=== PATIENT | female | born 1940 | race Caucasian/White ===

== ENCOUNTER 2017-03-20 10:58 | Inpatient (IN) ==
[2017-03-20] MEDS ORDERED: AZITHROMYCIN IV 500 MG in NS 250ml 250 ML IV ONE (11:13)
--- NOTE | 2017-03-20 11:28 | Emergency Department Report ---
SOB HPI - General Chief Complaint: Shortness of Breath/Dyspnea Stated Complaint: Dyspnea Time Seen by Provider: 03/20/17 11:13 Source: patient, EMS Mode of arrival: EMS Limitations: no limitations - History of Present Illness 76yo woman presented to the ER by EMS for dyspnea. Pt has had several days of increased dyspnea. Has a known h/o COPD. No known sick contacts; no URI sx. Has had similar COPD exacerbations in the past. EMS gave 125mg IV solumedrol and x1 albuterol neb with improvement in sx. MD Complaint: shortness of breath Onset (ago): day(s) Severity: similar to previous episodes Consistency/Duration: constant Relieving factors: oxygen, rest, bronchodilators, upright position Exacerbating factors: lying flat, exertion, movement, coughing Known history of: COPD Associated symptoms: denies other symptoms Treatment prior to arrival: oxygen, bronchodilator - Related Data Home oxygen amount: 4 liters Home Medications Medication Instructions Recorded Confirmed Bumetanide 0.5 mg PO DAILY 03/20/17 03/20/17 Buspirone HCl [Buspirone HCl] 7.5 mg PO BID 03/20/17 03/20/17 Fluticasone/Salmeterol [Advair Hfa 2 puff INH BID 03/20/17 03/20/17 230-21 Mcg Inhaler] Potassium Chloride [Klor-Con 10] 10 meq PO DAILY 03/20/17 03/20/17 Previous Rx's Medication Instructions Recorded Tiotropium Lovilia [Spiriva] 1 cap ORAL INH DAILY #0 inhaler 06/23/15 ALPRAZolam [Xanax] 0.25 mg PO BID PRN #60 tab 06/29/15 Allergies Allergy/AdvReac Type Severity Reaction Status Date / Time Sulfa (Sulfonamide Allergy Unknown Verified 03/20/17 11:25 Antibiotics) Review of Systems All systems: reviewed and negative except as stated Respiratory: Reports: as per HPI, cough, dyspnea PFSH Patient Stated Medical History Chronic Obstructive Pulmonary Yes Disease (COPD) Medical History Updates: Anxiety. Depr. Hypokalemia Physical Exam - Limitations Limitations: no limitations - General General appearance: alert, in no apparent distress, cachectic - Normal Exams: Head:: Normocephalic without trauma Eyes:: Pupils are PERRLA w/ EOMI, No scleral icterus, irritation, or foreign bodies noted ENMT:: No facial trauma, nasal exudates, pharyngeal erythema, or exudates are noted Neck:: Full range of motion, without adenopathy Abdomen:: Bowel sounds positive, soft, non-tender, non-distended, no hepatosplenomegaly, masses or bruits noted Lymphatic:: No lymphadenopathy Musculoskeletal:: No tenderness, or deformity noted Integumentary:: No rashes, hives, or bruising noted Neurological:: Patient is alert, and oriented Psychiatric:: Patient exhibits, appropriate attention - Chest Chest inspection: Present: normal inspection, symmetric chest wall rise. Absent : tenderness, rash - Respiratory Respiratory exam: Present: accessory muscle use, prolonged expiratory phase, crackles. Absent: normal lung sounds bilaterally, respiratory distress, wheezes - Cardiovascular Cardiovascular exam: Present: normal rhythm, tachycardia, normal heart sounds. Absent: regular rate, systolic murmur, diastolic murmur Course Vital Signs Temperature 98.2 F 03/20/17 11:19 Pulse Rate 100 03/20/17 11:19 Respiratory Rate 22 03/20/17 11:19 Blood Pressure 158/78 H 03/20/17 11:19 Pulse Oximetry 92 03/20/17 11:19 Temperature 96.4 F L 03/22/17 07:53 Pulse Rate 94 03/22/17 08:00 Respiratory Rate 18 03/22/17 11:28 Blood Pressure 121/67 03/22/17 07:53 Pulse Oximetry 92 03/22/17 11:22 Shortness of Breath/Dyspnea - [facility] Narrative Medical decision making narrative: Pt with h/o COPD; sx c/w same, except for crackles in lungs. Marked improvement following duonebs. Pt still feels dyspneic. Labs show that she is hypercarbic; CXR shows pulm congestion. Will give IV loop diuretic; if sx not improved, will discuss admission. O/w will plan for d/c to home with f/u with PCM and pulm. Pt voiced understanding of dx, prognosis, tx, and f/u need. - Differential Diagnosis Likely: acute exacerbation of chronic obstructive airways disease, congestive heart failure, community acquired pneumonia, asthma with exacerbation - Medical Records Attestation: I reviewed the patient's medical records. - Lab Data Attestation: I reviewed the patient's lab results. Result diagrams: 03/22/17 04:48 03/22/17 04:48 Lab Results 03/20/17 03/20/17 03/20/17 Range/Units 11:18 11:24 11:24 WBC 8.4 (4.5-11.0) T/MM3 RBC 5.08 (4.00-5.20) M/MM3 Hgb 13.8 (12-16) GM/DL Hct 45.9 (36-46) % MCV 90.4 (80-100) UM3 MCH 27.2 (26-34) UUG MCHC 30.1 L (31-37) GM/DL RDW Std Deviation 45.2 (36.9-50.2) FL Plt Count 223 (130-400) T/MM3 MPV 11.8 (9.4-12.4) UM3 Immature Gran % (Auto) Not performed Neut % (Auto) Not performed Lymph % (Auto) Not performed [place] % (Auto) Not performed Eos % (Auto) Not performed Baso % (Auto) Not performed Neut # (Auto) Not performed Lymph # (Auto) Not performed [place] # (Auto) Not performed Eos # (Auto) Not performed Baso # (Auto) Not performed Abs Immat Gran (auto) Not performed Neutrophils % (Manual) 87.0 H (33-66) % Lymphocytes % (Manual) 8.0 L (23-45) % Monocytes % (Manual) 5.0 (0-9.0) % Neutrophils # (Manual) 7.3 (1.8-7.7) T/MM3 Lymphocytes # (Manual) 0.7 L (1-4.8) T/MM3 Monocytes # (Manual) 0.4 (0-0.8) T/MM3 RBC Morph Comment Normal Turbidity < 20 (0-20) Sodium 134 (134-144) MEQ/L Potassium 4.3 (3.6-5) MEQ/L Chloride 81 L (98-107) MEQ/L Carbon Dioxide 46 H* (22-30) MEQ/L Anion Gap 7 (5-15) MEQ/L BUN 15.0 (7-17) MG/DL Creatinine 0.5 L (0.7-1.2) MG/DL GFR Calculation 120 BUN/Creatinine Ratio 30 H (6-26) RATIO Glucose 98 (65-110) MG/DL Calculated Osmolality 259 L (261-280) MOSM/KG Calcium 9.2 (8.4-10.2) MG/DL Icterus Index < 2 (0-7) Troponin I < 0.012 (0-0.12) ng/ml B-Natriuretic Peptide 835 H (0-175) pg/mL Specimen Hemolysis < 15 (0-25) Adenovirus (PCR) Negative (Negative) B.parapertussis DNA PCR Negative (Negative) C. pneumoniae DNA (PCR) Negative (Negative) Coronavirus OC43 (PCR) Negative (Negative) Coronavirus HKU1 (PCR) Negative (Negative) Coronavirus 229E (PCR) Negative (Negative) Coronavirus NL63 (PCR) Negative (Negative) Human Metapneumovir PCR Negative (Negative) Influenza Type A (PCR) Negative (Negative) Influenza Type B (PCR) Negative (Negative) M. pneumoniae (PCR) Negative (Negative) Parainfluenza 1 (PCR) Negative (Negative) Parainfluenza 2 (PCR) Negative (Negative) Parainfluenza 3 (PCR) Negative (Negative) Parainfluenza 4 (PCR) Negative (Negative) RSV (PCR) Negative (Negative) Entero/Rhino (PCR) Negative (Negative) - Radiology Data Attestation: I reviewed the patient's radiology results. CXR: Findings: Hyperinflation and emphysema. Increased interstitial markings in the mid to lower lung campbell with slight worsening in the left lower lobe. No pneumothorax. Trace pleural effusions. Heart size and mediastinal contours are stable. Pulmonary vascularity is prominent with cephalization. Impression: Mild pulmonary edema superimposed upon emphysema. - EKG Data EKG #1 EKG attestation: Yes: I reviewed and interpreted this EKG. EKG shows normal: sinus rhythm, axis, intervals, QRS complexes, ST-T waves Rate: tachycardia Disposition Clinical Impression: Acute exacerbation of chronic obstructive airways disease Disposition: [facility] [place] Condition: Stable - Seen By: physician
--- NOTE | 2017-03-20 12:25 | XRay Report ---
Indication: Dyspnea PROCEDURE: XR chest 1V: Encounter: Initial Comparison: June 28, 2015 Findings: Hyperinflation and emphysema. Increased interstitial markings in the mid to lower lung campbell with slight worsening in the left lower lobe. No pneumothorax. Trace pleural effusions. Heart size and mediastinal contours are stable. Pulmonary vascularity is prominent with cephalization. Impression: Mild pulmonary edema superimposed upon emphysema. .
[2017-03-20] MEDS ORDERED: FUROSEMIDE 20 MG/2 ML INJECTION IVP ONE (12:35)
[2017-03-20] MEDS: SALINE FLUSH 10ml SYRINGE IVF PRN ×2 (12:46→15:19)
[2017-03-20] MEDS ORDERED: ACETAMINOPHEN 325 MG TABLET PO PRN (14:11)
[2017-03-20 14:15] VITALS: BMI 24.2
[2017-03-20] MEDS ORDERED: ONDANSETRON 4 MG/2 ML INJECTION IVP PRN (14:15)
[2017-03-20] MEDS: ALBUTEROL/IPRATROPIUM 2.5mg-0.5mg/3ml NEB AEROSOL PRN ×2 (15:00→20:46)
--- NOTE | 2017-03-20 15:04 | History & Physical Report ---
<LorigarlandNatasha Adonis - Last Filed: 03/20/17 15:54> History of Present Illness Date: 03/20/17 Chief complaint: COPD exacerbation, respiratory distress HPI: Judie Weber is a pleasant 76-year-old female who [place] [facility] today, 03/20/17, for evaluation of severe dyspnea and cough. She admits to a history of chronic respiratory failure requiring constant home oxygen at 4L/min secondary to COPD. She reports that a few months ago she had to increase her home oxygen from 3L to 4L. She follows with Dr. Galindo. For the past several days she has had increased dyspnea with cough and congestion. She admits to productive cough with white-yellow sputum, generalized weakness and occasional chills. She denies any known fevers, chest pain, abdominal pain, nausea, vomiting, dysuria, confusion or headache. She states she uses inhalers at home and tried a nebulized albuterol treatment this morning without improvement. Despite her home treatments and chronic oxygen use at 4L, she was unable to maintain her SAO2 greater than 90%, specifically with ambulation. EMS was dispatched and gave an additional albuterol treatment with Solu-Medrol 125mg IV prior to arrival. Upon arrival to the ED, she reports she felt a little better, but continued to have dyspnea. CXR was obtained and reviewed by myself. It revealed mild pulmonary edema superimposed upon emphysema. Labs were obtained and revealed WBC 8.4 with 87% neutrophils. CMP revealed elevated bicarb at 46 and otherwise unremarkable. Troponin was negative at <0.012 and BMP was 835. Respiratory viral panel was negative. While in the ED, Judie received 3 Xopenex treatments, Lasix 20mg IV and a dose of azithromycin 500mg IV for empiric coverage of pulmonary pathogens. Dr. Rdz was contacted and Judie was accepted into inpatient status for further evaluation, close respiratory monitoring as well as respiratory treatments and IV antibiotics for her acute on chronic respiratory failure and COPD exacerbation. Her length of stay is expected to exceed more than 2 over nights. On exam, she is seen immediately upon her arrival to room 148. She is noted to have moderate respiratory distress with increased effort and 1-2 word conversational dyspnea. Respiratory is at bedside on during exam. She denies any recent illness or sick contacts. She has not received her flu shot yet this year. Respiratory panel in ED was negative. Cardiac exam reveals tachycardia. Lungs sounds are diminished bilaterally. No retractions noted. Abdomen is soft, nontender with active bowel sounds and she asks for something to eat as she has not eaten all day and is hungry. 2+ pitting edema noted to right lower extremity vs. 1+ to left lower extremity. She reports that her right leg is always more swollen than her left. She is alert and orientated x 3. Review of Systems All systems PM: 10-point ROS was reviewed, no additional remarkable complaints except - Constitutional Constitutional: Present: chills, fatigue, weakness. Absent: fever(s) - EENMT Eyes: Absent: diplopia, photophobia Ears: Absent: ear pain Balance: Absent: falling to one side Nose: Present: allergies, other (congestion). Absent: nosebleeds Mouth/Throat: Present: dry mouth. Absent: sore throat, changes in swallowing - Cardiovascular Cardiovascular: Present: dyspnea on exertion, orthopnea, edema. Absent: chest pain, syncope, cyanosis Vascular: Present: pedal edema - Respiratory Respiratory: Present: cough, dyspnea, dyspnea on exertion. Absent: hemoptysis, wheezing, pain on inspiration, chest congestion - Gastrointestinal Gastrointestinal: Absent: abdominal pain, change in bowel habits, constipation, diarrhea, dysphagia, hematochezia, melena, nausea, vomiting - Genitourinary Genitourinary: Absent: dysuria, flank pain, hematuria Menstruation: post menopausal - Musculoskeletal Musculoskeletal: Present: muscle weakness. Absent: back pain, deformity, neck pain - Integumentary/Breasts Integumentary: Absent: rash - Neurological Neurological: Present: weakness. Absent: confusion, convulsions, headache(s), memory loss - Psychiatric Psychiatric: Present: anxiety - Endocrine Endocrine: Absent: palpitations - Hematologic/Lymphatic Hematologic/Lymphatic: Absent: easy bruising - Allergic/Immunologic Allergic/Immunologic: Present: seasonal rhinorrhea PFSH COPD. Chronic respiratory failure requiring chronic supplemental oxygen at 4L-follows with Dr. Galindo. Anxiety. Uterine prolapse. History of tobacco dependency - quit in 2004. CHF, diastolic dysfunction. Surgical History: Right hip-2006. Vaginal plessary. Family History: Mother, age 78 - osteoarthritis, from sepsis. Father, age 76 - diabetes, CAD, hypertension. Son, alive age 54 - diabetes. Daughter, alive age 50 - healthy. - Social History Smoking status: Former smoker (quit in 2004.) Substance use type: does not use Alcohol intake frequency: does not drink Housing: house Household members: none Current occupational status: retired Does patient use chewing tobacco?: No Current residence: Apartment/Private Home Social history: PCP - Dr. Person. Cardio - Dr. Price. Pulm - Dr. Galindo. Patient is and lives at home, alone, with 2 dogs (Yvette and Iman). Medications Home Medications Medication Instructions Recorded Confirmed Type Bumetanide 0.5 mg PO DAILY 03/20/17 03/20/17 History Buspirone HCl [Buspirone HCl] 7.5 mg PO BID 03/20/17 03/20/17 History Fluticasone/Salmeterol [Advair Hfa 2 puff INH BID 03/20/17 03/20/17 History 230-21 Mcg Inhaler] Potassium Chloride [Klor-Con 10] 10 meq PO DAILY 03/20/17 03/20/17 History Allergies Allergy/AdvReac Type Severity Reaction Status Date / Time Sulfa (Sulfonamide Allergy Unknown Verified 03/20/17 11:25 Antibiotics) Exam Vital Signs: Temperature 96.9 F 03/20/17 14:15 Pulse Rate 111 H 03/20/17 14:15 Respiratory Rate 29 H 03/20/17 14:15 Blood Pressure 143/73 H 03/20/17 14:15 Pulse Oximetry 90 03/20/17 14:15 Telemetry Rhythm: Sinus Tachycardia Height/Weight/BMI: Height 4 ft 11 in Weight 119 lb 14.903 oz Body Mass Index 24.2 - Constitutional Present: moderate distress, well nourished, well developed, cooperative - Routine HEENT Exam Head: Present: normocephalic, atraumatic Eye: Present: PERRL. Absent: conjunctival icterus ENT: Present: mucous membranes dry, dentition normal - Routine Neck Exam Present: supple, full ROM, trachea midline - Routine Chest/Breast/Axilla Exam Chest wall: Absent: pacemaker - Routine Respiratory Exam Present: accessory muscle use, dyspnea, decreased breath sounds, prolonged expiratory phase, respiratory distress, diminished air movement. Absent: wheezes Comments: pursed lips with breathing; 1-2 word conversational dyspnea. - Routine Cardiovascular Exam Present: S1, S2, tachycardia - Routine Abdominal Exam Present: soft, normoactive bowel sounds, non distended, non tender - Routine Extremities Exam Present: edema (2+ pitting to right, 1+ pitting to left.), non tender, full ROM , pulses intact. Absent: calf tenderness - Routine Back/Spine/Pelvis Exam Back/Spine: Present: full ROM - Routine Skin Exam Present: intact, dry, warm. Absent: jaundice Comments: afebrile. - Routine Neurological Exam Present: alert, oriented X3, moving all extremities, normal speech - Routine Psychiatric Exam Present: cooperative Results - Labs CBC & Chem 7: 03/20/17 11:24 03/20/17 11:24 - ABG Interpretation ABG results: 03/20/17 14:30 ABG pH 7.273 L ABG pCO2 101 H* ABG pO2 65 L ABG HCO3 47 H ABG Total CO2 50 H ABG O2 Saturation 87.0 L ABG Base Excess 14.0 H Interpretation: respiratory acidosis - Echocardiogram Echocardiogram: 06/26/2012: * Preserved LV systolic function with EF 52-55%. * Mild diastolic dysfunction. * Mild-moderate RV enlargement. * Moderate RV hypokinesis. * Moderate pulmonary hypertension. * Normal central venous pressure. * No significant valvular dysfunction. * Minimal posterior pericardial effusion. - Imaging and Cardiology Chest x-ray Status: image reviewed by me Additional comments: Date of Exam: 03/20/17 PROCEDURE: XR chest 1V: Encounter: Initial Findings: Hyperinflation and emphysema. Increased interstitial markings in the mid to lower lung campbell with slight worsening in the left lower lobe. No pneumothorax. Trace pleural effusions. Heart size and mediastinal contours are stable. Pulmonary vascularity is prominent with cephalization. Impression: Mild pulmonary edema superimposed upon emphysema. Assessment and Plan (1) Acute and chronic respiratory failure with hypercapnia Current visit: Yes Status: Acute (2) Acute exacerbation of chronic obstructive airways disease Current visit: Yes Status: Acute (3) Diastolic CHF, chronic Current visit: Yes Status: Chronic 06/26/2012: * Preserved LV systolic function with EF 52-55%. * Mild diastolic dysfunction. * Mild-moderate RV enlargement. * Moderate RV hypokinesis. * Moderate pulmonary hypertension. * Normal central venous pressure. * No significant valvular dysfunction. * Minimal posterior pericardial effusion. (4) History of tobacco use in past year Current visit: Yes Status: Chronic 03/20/17 15:37 quit in 2004. (5) Anxiety Current visit: Yes Status: Chronic (6) Uterine prolapse Current visit: Yes Status: Chronic (7) Chronic respiratory failure with hypoxia, on home oxygen therapy Current visit: Yes Status: Acute 03/20/17 15:[address] Galindo; chronic home oxygen at baseline of 3-4L. DVT Prophylaxis: SCD's Assessment and Plan: 76-year-old female with acute on chronic respiratory failure with hypercapnia and hypoxia secondary to COPD exacerbation with home oxygen use at 4L. Assessment Acute on chronic respiratory failure with hypercapnia and hypoxia. COPD exacerbation, acute. Chronic respiratory failure requiring chronic supplemental oxygen at 4L-follows with Dr. Galindo. Anxiety, chronic. History of tobacco dependency - quit in 2004. CHF, diastolic dysfunction, chronic. Plan-03/20 (Admission) Admit to inpatient status under the care of the hospitalist service, Dr. Rdz. ABG obtained immediately upon arrival to inpatient unit-revealed acute on chronic respiratory failure as indicated by elevated pCO2 at 101 and acidosis ( pH 7.273). Respiratory therapy consulted and initiated bipap, which patient is tolerating well. History of chronic oxygen use at home at 3-4L. Follows with Dr. Galindo in [place]. Monitor closely on telemetry with continuous pulse oximetry. CXR in ED revealed mild pulmonary edema superimposed upon emphysema. Echo in 2015 revealed diastolic dysfunction with EF 52-55%. Patient has seen Dr. Price previously. Patient was given Lasix 20mg IV x 1 dose in ED. Continue home Bumex 0.5mg daily and monitor I&O closely. Monitor daily weights closely for signs of fluid overload. Sputum culture obtained in ED. Azithromycin 500mg IV given in ED. Will continue azithromycin 500mg IV daily for empiric treatment of pulmonary pathogens. Monitor sputum culture and sensitivity and adjust treatment as indicated. Respiratory support including supplemental oxygen, DuoNeb and Pulmicort treatments and bipap as needed for dyspnea. Ativan 0.5mg Q6H PRN anxiety. Mucinex for mucolytic effect and encourage incentive spirometry. Solu-Medrol 125mg Q6H for pulmonary inflammation. Anticipate hyperglycemia secondary to steroid effect. Will monitor BGMs closely and SSI as indicated. Low salt diet as tolerated. History of seasonal allergies. Will initiate Claritin which patient reports she has used successfully in the past in addition to Flonase for allergic rhinitis and congestion. Will recheck CBC and BMP in AM to monitor blood counts, electrolyses and renal function. Upon discharge, patient's care will be returned to her PCP, Dr. Person. - Time spent with patient Time with patient PN: 70 minutes Hospital Course Summary Disclaimer: The visit summary below is not to be considered part of the above Progress Note. Hospital Course: Assessment Acute on chronic respiratory failure with hypercapnia and hypoxia. COPD exacerbation, acute. Chronic respiratory failure requiring chronic supplemental oxygen at 4L-follows with Dr. Galindo. Anxiety, chronic. History of tobacco dependency - quit in 2004. CHF, diastolic dysfunction, chronic. Plan-03/20 (Admission) Admit to inpatient status under the care of the hospitalist service, Dr. Rdz. ABG obtained immediately upon arrival to inpatient unit-revealed acute on chronic respiratory failure as indicated by elevated pCO2 at 101 and acidosis ( pH 7.273). Respiratory therapy consulted and initiated bipap, which patient is tolerating well. History of chronic oxygen use at home at 3-4L. Follows with Dr. Galindo in [place]. Monitor closely on telemetry with continuous pulse oximetry. CXR in ED revealed mild pulmonary edema superimposed upon emphysema. Echo in 2015 revealed diastolic dysfunction with EF 52-55%. Patient has seen Dr. Price previously. Patient was given Lasix 20mg IV x 1 dose in ED. Continue home Bumex 0.5mg daily and monitor I&O closely. Monitor daily weights closely for signs of fluid overload. Sputum culture obtained in ED. Azithromycin 500mg IV given in ED. Will continue azithromycin 500mg IV daily for empiric treatment of pulmonary pathogens. Monitor sputum culture and sensitivity and adjust treatment as indicated. Respiratory support including supplemental oxygen, DuoNeb and Pulmicort treatments and bipap as needed for dyspnea. Ativan 0.5mg Q6H PRN anxiety. Mucinex for mucolytic effect and encourage incentive spirometry. Solu-Medrol 125mg Q6H for pulmonary inflammation. Anticipate hyperglycemia secondary to steroid effect. Will monitor BGMs closely and SSI as indicated. Low salt diet as tolerated. History of seasonal allergies. Will initiate Claritin which patient reports she has used successfully in the past in addition to Flonase for allergic rhinitis and congestion. Will recheck CBC and BMP in AM to monitor blood counts, electrolyses and renal function. Upon discharge, patient's care will be returned to her PCP, Dr. Person. 03/20/17 15:58 <Maame Rdz - Last Filed: 03/20/17 17:53> History of Present Illness Date: 03/20/17 [facility] Exam Vital Signs: Temperature 96.2 F L 03/20/17 16:32 Pulse Rate 105 H 03/20/17 16:32 Respiratory Rate 18 03/20/17 16:32 Blood Pressure 122/57 03/20/17 16:32 Pulse Oximetry 95 03/20/17 16:32 Height/Weight/BMI: Height 1.5 m Weight 54.4 kg Body Mass Index 24.2 Results - Labs CBC & Chem 7: 03/20/17 11:24 03/20/17 11:24 - ABG Interpretation ABG results: 03/20/17 14:30 ABG pH 7.273 L ABG pCO2 101 H* ABG pO2 65 L ABG HCO3 47 H ABG Total CO2 50 H ABG O2 Saturation 87.0 L ABG Base Excess 14.0 H Assessment and Plan (1) Acute and chronic respiratory failure with hypercapnia Current visit: Yes Status: Acute (2) Acute exacerbation of chronic obstructive airways disease Current visit: Yes Status: Acute (3) Chronic respiratory failure with hypoxia, on home oxygen therapy Current visit: Yes Status: Chronic (4) Diastolic CHF, chronic Current visit: Yes Status: Chronic Resuscitation Status: Full Code Assessment and Plan: I have independently evaluated and examined this patient. I reviewed the chart, the patient's history, and the [employer]ANG[employer]AGES PROFESSOR/PA's documented findings as above. We discussed and formulated the assessment and plan as above with additions as below: Mrs. Weber was on BiPAP when seen but was able to nod yes/no to questions. She appeared fatigued but indicated she was more comfortable with BiPAP than she was earlier in the day. She describes subacute onset of symptoms with progressive worsening of breathing. Review of outpatient records indicates that in November of this year her FEV1 was 0.29 L or 20% predicted and FVC 1.15-54%. It appears that she should be on Spiriva and Brovana in addition to albuterol and that Advair was discontinued due to inconsistent use due to cost. Will attempt to clarify with patient during time period that she is off BiPAP and able to provide history more effectively. On examination patient was resting comfortably at the time of my assessment. Conjugate gaze, sclera anicteric Respirations nonlabored on BiPAP with FiO2 50%, breath sounds diminished throughout without wheezing or rhonchi Cardiac rhythm regular with low-grade tachycardia +2 lower extremity edema Chest x-ray reviewed by myself with hyperinflated lung campbell, mild increased vascular markings and probable bilateral pleural effusions Additional dose of Bumex 1 mg to be given at this time. ABG to be repeated to be repeated on BiPAP to assess effectiveness. Bicarbonate in the outpatient setting has increased from 34 in March 2016 to 39 in November of this year to 46 currently indicating progressive hypercarbia. PCO2 currently is 101 with decreased pH compatible with acute/chronic CO2 retention. Patient will be evaluated for home ventilatory assistance if she is open to doing so. Anticipate continuing BiPAP continuously except brief periods off for meals at this time. Patient indicated full CODE STATUS and that her children are her alternate decision makers. Her primary care physician is Dr. Colunga. Outpatient records reviewed, discussed with Dr. Angulo and RT, chest x-ray reviewed by myself. Critically ill on presentation-40 minutes spent in patient care by myself. Hospital Course Summary Disclaimer: The visit summary below is not to be considered part of the above Progress Note.
[2017-03-20] MEDS: AZITHROMYCIN IV 500 MG in NS 250ml 250 ML IV SCH (15:06)
[2017-03-20] MEDS ORDERED: FALL RISK - PHARMACY CONSULT XX ONE (15:28)
[2017-03-20] MEDS: FLUTICASONE NASAL SPRAY 50mcg EA NOSTRIL SCH (16:40)
[2017-03-20] MEDS: METHYLPREDNISOLONE SOD SUCC 125mg/2ml INJECTION IVP SCH (16:41)
[2017-03-20] MEDS ORDERED: INFLUENZA VAC High Dose 2017-18 (Fluzone HD*) (>=65yo) 0.5ml IM ONE (18:11)
[2017-03-20] MEDS ORDERED: INFLUENZA VAC. INJ. ADMIN CHARGE INJ ONE (19:00)
[2017-03-20] MEDS: PNEUMOCOCCAL 13 VACCINE 0.5ml INJECTION IM ONE (19:29)
[2017-03-20] MEDS: GUAIFENESIN LA 600 MG TABLET PO SCH (20:07)
[2017-03-20] MEDS: BUDESONIDE INH.SOLN 0.5mg/2ml NEB AEROSOL SCH (20:45)
[2017-03-20] MEDS ORDERED: ALBUTEROL 2.5mg/3ml (0.083%) NEB AEROSOL PRN (20:52)
[2017-03-20] MEDS ORDERED: ALPRAZolam 0.25 MG TABLET PO PRN (20:54)
[2017-03-21] MEDS: METHYLPREDNISOLONE SOD SUCC 125mg/2ml INJECTION IVP SCH ×3 (02:24→18:44)
[2017-03-21] MEDS: LORATADINE 10 MG TABLET PO SCH (06:44)
[2017-03-21] MEDS: ALBUTEROL/IPRATROPIUM 2.5mg-0.5mg/3ml NEB AEROSOL PRN (07:23)
[2017-03-21] MEDS: BUDESONIDE INH.SOLN 0.5mg/2ml NEB AEROSOL SCH ×2 (07:23→19:47)
[2017-03-21] MEDS: GUAIFENESIN LA 600 MG TABLET PO SCH ×2 (08:50→20:14)
[2017-03-21] MEDS: FLUTICASONE NASAL SPRAY 50mcg EA NOSTRIL SCH (08:51)
[2017-03-21] MEDS: PNEUMOCOCCAL 13 VACCINE 0.5ml INJECTION IM ONE (10:35)
[2017-03-21] MEDS: NS FLUSH BAG 500ml IV PRN (10:35)
[2017-03-21] MEDS: CEFTRIAXONE 1 G in NS 100 ML IV SCH (10:35)
--- NOTE | 2017-03-21 10:49 | Pulmonology Consult Note ---
<Yessy Zepeda - Last Filed: 03/21/17 10:40> History of Present Illness Consult date: 03/21/17 Requesting physician: Maame Rdz Reason for consult: COPD Chief complaint: SOB History of present illness: This is a 76 yo female with a Hx of COPD, anxiety, and depression. She sees Dr. Galindo for her COPD, states she was in Advair daily and spiriva daily and she was switched a month ago from her advair to brovana BID neb. She states since then she has noticed some increase in her SOB. Is usualy on 3L O2 at home. She unfortuantely has noticed increased SOB, cough and some sputum the last couple days. Her SOB increased enough yesterday that she called EMS and was brought [place] [facility] [place] EMS did give a BT and soolumedrol 125mg with some relief noted. Lab on admit showed normal WBC and Cr, RVP negative, CXR with some congestion, otherwise COPD noted. ABG noted 7.28/101/74 and was started on bipap, repeat ABG was 7.4/81/83. We have been consulted for her respiratory issues and appreciate the consult. Review of Systems - Constitutional Constitutional: Present: as per HPI - EENT Eyes: Present: as per HPI Nose: Present: as per HPI - Respiratory Respiratory: Present: cough, dyspnea, dyspnea on exertion - Gastrointestinal Gastrointestinal: Present: as per HPI - Musculoskeletal Musculoskeletal: Present: as per HPI - Integumentary/Breasts Integumentary: Present: as per HPI - Neurological Neurological: Present: as per HPI - Psychiatric Psychiatric: Present: as per HPI - Endocrine Endocrine: Present: as per HPI - Hematologic/Lymphatic Hematologic/Lymphatic: Present: as per HPI - Allergic/Immunologic Allergic/Immunologic: Present: as per HPI [facility] Patient Stated Medical History Chronic Obstructive Pulmonary Yes Disease (COPD) Medical History Updates: Anxiety. Depr. Hypokalemia Surgical History: Right hip-2006. Vaginal plessary. - Social History Smoking status: Former smoker (quit in 2004.) Substance use type: does not use Alcohol intake frequency: does not drink Housing: house Does patient use chewing tobacco?: No Current residence: Apartment/Private Home Medications Home Medications Medication Instructions Recorded Confirmed Type Bumetanide 0.5 mg PO DAILY 03/20/17 03/20/17 History Buspirone HCl [Buspirone HCl] 7.5 mg PO BID 03/20/17 03/20/17 History Fluticasone/Salmeterol [Advair Hfa 2 puff INH BID 03/20/17 03/20/17 History 230-21 Mcg Inhaler] Potassium Chloride [Klor-Con 10] 10 meq PO DAILY 03/20/17 03/20/17 History Allergies Allergy/AdvReac Type Severity Reaction Status Date / Time Sulfa (Sulfonamide Allergy Unknown Verified 03/20/17 11:25 Antibiotics) Exam Vital signs: Temperature 97.0 F 03/21/17 07:44 Pulse Rate 86 03/21/17 08:17 Respiratory Rate 14 03/21/17 07:44 Blood Pressure 154/89 H 03/21/17 07:44 Pulse Oximetry 96 03/21/17 07:49 - Constitutional no acute distress, cachectic - Routine HEENT Exam Head: Present: normocephalic, atraumatic Eye: Present: EOMI, PERRL - Routine Neck Exam Present: supple, full ROM - Routine Respiratory Exam Present: decreased breath sounds - Routine Cardiovascular Exam Present: RRR, no murmur - Routine Abdominal Exam Present: soft, normoactive bowel sounds - Routine Extremities Exam Present: no edema - Routine Back/Spine/Pelvis Exam Back/Spine: Present: full ROM - Routine Skin Exam Present: intact, dry - Routine Neurological Exam Present: alert, oriented X3, CN II-XII intact - Routine Psychiatric Exam Present: normal affect, normal thought process Results - Laboratory Findings CBC and BMP: 03/21/17 04:30 03/21/17 04:30 ABG ABG pH 7.402 (7.350-7.450) 03/21/17 07:48 ABG pCO2 81 MMHG (34-45) H* 03/21/17 07:48 ABG pO2 83 MMHG (80-100) 03/21/17 07:48 ABG O2 Saturation 95.0 % (95.0-98.0) 03/21/17 07:48 Abnormal lab findings: Abnormal Labs 03/20/17 03/20/17 03/21/17 14:30 17:40 04:30 MCHC 29.4 L Neutrophils % (Manual) 91.0 H Lymphocytes % (Manual) 6.0 L Lymphocytes # (Manual) 0.3 L ABG pH 7.273 L 7.283 L ABG pCO2 101 H* 101 H* ABG pO2 65 L 74 L ABG HCO3 47 H 48 H ABG Total CO2 50 H > 50 H ABG O2 Saturation 87.0 L 91.0 L ABG Base Excess 14.0 H 15.0 H Chloride Carbon Dioxide Creatinine BUN/Creatinine Ratio 03/21/17 03/21/17 04:30 07:48 MCHC Neutrophils % (Manual) Lymphocytes % (Manual) Lymphocytes # (Manual) ABG pH ABG pCO2 81 H* ABG pO2 ABG HCO3 50 H ABG Total CO2 > 50 H ABG O2 Saturation ABG Base Excess 21.0 H Chloride 82 L Carbon Dioxide 46 H* Creatinine 0.5 L BUN/Creatinine Ratio 34 H - Diagnostic Findings Chest x-ray: image reviewed (as noted in HPI) Assessment and Plan - Assessment and Plan (1) Acute and chronic respiratory failure with hypercapnia Current visit: Yes Status: Acute (2) Acute exacerbation of chronic obstructive airways disease Current visit: Yes Status: Acute (3) Anxiety Current visit: Yes Status: Chronic (4) Diastolic CHF, chronic Current visit: Yes Status: Chronic - Assessment and Plan Pt is currently on O2 at 4L per NC, uses 3L O2 at home. Tolerated bipap last noc , f14, 21/10, Vt 400-500, continue to follow. Currently on spiriva daily, budesonide BID, Solumedrol 125mg q8hr, will add a/a QID as currently just PRN. Afebrile and no leukocytosis noted, sputum pending, on azithro/rocephin. CXR showed congestion, follow, not on diuretics at this time. Has Chronic hnypercapnic failure and will need a home vent to mask for her underlying COPD and Chronic Respiratory Failure. She is at high risk for decompensation and even without the use of a home vent to mask. Will continue to follow. <Jose Walton - Last Filed: 03/22/17 14:14> [facility] Patient Stated Medical History Chronic Obstructive Pulmonary Yes Disease (COPD) Exam Vital signs: Temperature 96.4 F L 03/22/17 07:53 Pulse Rate 94 03/22/17 08:00 Respiratory Rate 18 03/22/17 11:28 Blood Pressure 121/67 10/12/17 07:53 Pulse Oximetry 92 03/22/17 11:22 Results - Laboratory Findings CBC and BMP: 03/22/17 04:48 03/22/17 04:48 ABG ABG pH 7.402 (7.350-7.450) 03/21/17 07:48 ABG pCO2 81 MMHG (34-45) H* 03/21/17 07:48 ABG pO2 83 MMHG (80-100) 03/21/17 07:48 ABG O2 Saturation 95.0 % (95.0-98.0) 03/21/17 07:48 Abnormal lab findings: Abnormal Labs 03/20/17 03/20/17 03/21/17 14:30 17:40 04:30 Hgb MCHC 29.4 L Neutrophils % (Manual) 91.0 H Lymphocytes % (Manual) 6.0 L Neutrophils # (Manual) Lymphocytes # (Manual) 0.3 L ABG pH 7.273 L 7.283 L ABG pCO2 101 H* 101 H* ABG pO2 65 L 74 L ABG HCO3 47 H 48 H ABG Total CO2 50 H > 50 H ABG O2 Saturation 87.0 L 91.0 L ABG Base Excess 14.0 H 15.0 H Chloride Carbon Dioxide Anion Gap BUN Creatinine BUN/Creatinine Ratio Glucose 03/21/17 03/21/17 03/22/17 04:30 07:48 04:48 Hgb 11.9 L MCHC 29.5 L Neutrophils % (Manual) 95.0 H Lymphocytes % (Manual) 3.0 L Neutrophils # (Manual) 10.2 H Lymphocytes # (Manual) 0.3 L ABG pH ABG pCO2 81 H* ABG pO2 ABG HCO3 50 H ABG Total CO2 > 50 H ABG O2 Saturation ABG Base Excess 21.0 H Chloride 82 L Carbon Dioxide 46 H* Anion Gap BUN Creatinine 0.5 L BUN/Creatinine Ratio 34 H Glucose 03/22/17 04:48 Hgb MCHC Neutrophils % (Manual) Lymphocytes % (Manual) Neutrophils # (Manual) Lymphocytes # (Manual) ABG pH ABG pCO2 ABG pO2 ABG HCO3 ABG Total CO2 ABG O2 Saturation ABG Base Excess Chloride 85 L Carbon Dioxide 49 H* Anion Gap 2 L BUN 21.0 H Creatinine 0.5 L BUN/Creatinine Ratio 42 H Glucose 121 H Assessment and Plan - Attestation Attestation Narrative: 03/22/17 14:13 I have personally seen and examined this patient. I have reviewed all pertinent objective data and formulated the assessments and plans that were transcribed by Cedric Zepeda.
[2017-03-21] MEDS: ALBUTEROL/IPRATROPIUM 2.5mg-0.5mg/3ml NEB AEROSOL SCH ×3 (11:22→19:47)
[2017-03-21] MEDS: TIOTROPIUM 18mcg/cap HANDIHALER ORAL INH SCH (12:00)
[2017-03-21] MEDS: AZITHROMYCIN IV 500 MG in NS 250ml 250 ML IV SCH (15:06)
--- NOTE | 2017-03-21 15:06 | Progress Note ---
<Patricia Soliman - Last Filed: 03/21/17 15:03> Subjective: Judie was resting in bed, BiPAP in place. Her breathing is doing better today. She tolerated BiPAP last night. She hasn't been coughing much; she has chronic sinus congestion. She denies chest pain, but inquired about a "bump" to her chest, which is been there for years. Previously she has squeezed it, but it returned nonetheless. She also states that her right leg has been swollen x12 years. She has been urinating frequently (about every hour) but feels like she needs the diuresis. Objective Vital signs: Temperature 97.0 F 03/21/17 07:44 Pulse Rate 86 03/21/17 08:17 Respiratory Rate 16 03/21/17 12:10 Blood Pressure 154/89 H 03/21/17 07:44 Pulse Oximetry 93 03/21/17 11:23 Height/Weight/BMI: Height 1.5 m Weight 57.5 kg Body Mass Index 24.2 - Constitutional Present: no acute distress, well nourished, well developed - Routine HEENT Exam Eye: Absent: scleral injection - Routine Respiratory Exam Present: dyspnea, decreased breath sounds, diminished air movement Comments: bipap mask in place - Routine Cardiovascular Exam Present: RRR, S1, S2 - Routine Abdominal Exam Present: soft, normoactive bowel sounds, non distended, non tender - Routine Extremities Exam Present: clubbing, edema (RLE ) - Routine Skin Exam Present: dry (extremely dry skin with flaking skin to chest and back), warm Comments: small 1 cm mobile firm cystic lesion to sternum - Routine Neurological Exam Present: alert, oriented X3 - Routine Psychiatric Exam Present: normal affect, normal thought process, cooperative Results - Labs CBC & Chem 7: 03/21/17 04:30 03/21/17 04:30 - ABG Interpretation ABG results: 03/20/17 03/20/17 03/21/17 14:30 17:40 07:15 ABG pH 7.273 L 7.283 L Cancelled ABG pCO2 101 H* 101 H* Cancelled ABG pO2 65 L 74 L Cancelled ABG HCO3 47 H 48 H Cancelled ABG Total CO2 50 H > 50 H Cancelled ABG O2 Saturation 87.0 L 91.0 L Cancelled ABG Base Excess 14.0 H 15.0 H Cancelled 03/21/17 07:48 ABG pH 7.402 ABG pCO2 81 H* ABG pO2 83 ABG HCO3 50 H ABG Total CO2 > 50 H ABG O2 Saturation 95.0 ABG Base Excess 21.0 H Assessment and Plan (1) Acute exacerbation of chronic obstructive airways disease Current visit: Yes Status: Acute (2) Acute and chronic respiratory failure with hypercapnia Current visit: Yes Status: Acute (3) Diastolic CHF, chronic Current visit: Yes Status: Chronic 06/26/2012: * Preserved LV systolic function with EF 52-55%. * Mild diastolic dysfunction. * Mild-moderate RV enlargement. * Moderate RV hypokinesis. * Moderate pulmonary hypertension. * Normal central venous pressure. * No significant valvular dysfunction. * Minimal posterior pericardial effusion. (4) Chronic respiratory failure with hypoxia, on home oxygen therapy Current visit: Yes Status: Chronic 03/20/17 15:[address] Galindo; chronic home oxygen at baseline of 3-4L. Assessment and Plan: ASSESSMENT Acute on chronic respiratory failure with hypercapnia and hypoxia. COPD exacerbation, acute. Chronic respiratory failure requiring chronic supplemental oxygen at 4L-follows with Dr. Galindo. Anxiety, chronic. History of tobacco dependency - quit in 2004. CHF, diastolic dysfunction, chronic. PLAN Seen by pulm today - recommending home ventilatory mask. ABG showed improvement in respiratory acidosis, but CO2 is still elevated at 81. Day #2 of Azithromycin and Rocephin. White count is normal, afebrile. Continue Solu-Medrol, will discuss tapering with attending. Repeat CXR in am. Clinical improvement noted with one time dose of Lasix yesterday. Hospital Course Summary Disclaimer: The visit summary below is not to be considered part of the above Progress Note. Hospital Course: Assessment Acute on chronic respiratory failure with hypercapnia and hypoxia. COPD exacerbation, acute. Chronic respiratory failure requiring chronic supplemental oxygen at 4L-follows with Dr. Galindo. Anxiety, chronic. History of tobacco dependency - quit in 2004. CHF, diastolic dysfunction, chronic. Plan-03/20 (Admission) Admit to inpatient status under the care of the hospitalist service, Dr. Rdz. ABG obtained immediately upon arrival to inpatient unit-revealed acute on chronic respiratory failure as indicated by elevated pCO2 at 101 and acidosis ( pH 7.273). Respiratory therapy consulted and initiated bipap, which patient is tolerating well. History of chronic oxygen use at home at 3-4L. Follows with Dr. Galindo in [place]. Monitor closely on telemetry with continuous pulse oximetry. CXR in ED revealed mild pulmonary edema superimposed upon emphysema. Echo in 2015 revealed diastolic dysfunction with EF 52-55%. Patient has seen Dr. Price previously. Patient was given Lasix 20mg IV x 1 dose in ED. Continue home Bumex 0.5mg daily and monitor I&O closely. Monitor daily weights closely for signs of fluid overload. Sputum culture obtained in ED. Azithromycin 500mg IV given in ED. Will continue azithromycin 500mg IV daily for empiric treatment of pulmonary pathogens. Monitor sputum culture and sensitivity and adjust treatment as indicated. Respiratory support including supplemental oxygen, DuoNeb and Pulmicort treatments and bipap as needed for dyspnea. Ativan 0.5mg Q6H PRN anxiety. Mucinex for mucolytic effect and encourage incentive spirometry. Solu-Medrol 125mg Q6H for pulmonary inflammation. Anticipate hyperglycemia secondary to steroid effect. Will monitor BGMs closely and SSI as indicated. Low salt diet as tolerated. History of seasonal allergies. Will initiate Claritin which patient reports she has used successfully in the past in addition to Flonase for allergic rhinitis and congestion. Will recheck CBC and BMP in AM to monitor blood counts, electrolyses and renal function. Upon discharge, patient's care will be returned to her PCP, Dr. Person. 03/21/17 Seen by pulm today - recommending home ventilatory mask. ABG showed improvement in respiratory acidosis, but CO2 is still elevated at 81. Day #2 of Azithromycin and Rocephin. White count is normal, afebrile. Continue Solu-Medrol, will discuss tapering with attending. Repeat CXR in am. Clinical improvement noted with one time dose of Lasix yesterday. <Maame Rdz - Last Filed: 03/21/17 22:20> Objective Vital signs: Temperature 97.2 F 03/21/17 16:00 Pulse Rate 118 H 03/21/17 16:00 Respiratory Rate 16 03/21/17 19:48 Blood Pressure 148/82 H 03/21/17 16:00 Pulse Oximetry 91 03/21/17 19:48 Height/Weight/BMI: Height 1.5 m Weight 57.5 kg Body Mass Index 24.2 Results - Labs CBC & Chem 7: 03/21/17 04:30 03/21/17 04:30 - ABG Interpretation ABG results: 03/20/17 03/20/17 03/21/17 14:30 17:40 07:15 ABG pH 7.273 L 7.283 L Cancelled ABG pCO2 101 H* 101 H* Cancelled ABG pO2 65 L 74 L Cancelled ABG HCO3 47 H 48 H Cancelled ABG Total CO2 50 H > 50 H Cancelled ABG O2 Saturation 87.0 L 91.0 L Cancelled ABG Base Excess 14.0 H 15.0 H Cancelled 03/21/17 07:48 ABG pH 7.402 ABG pCO2 81 H* ABG pO2 83 ABG HCO3 50 H ABG Total CO2 > 50 H ABG O2 Saturation 95.0 ABG Base Excess 21.0 H Assessment and Plan (1) Acute and chronic respiratory failure with hypercapnia Current visit: Yes Status: Acute (2) Acute exacerbation of chronic obstructive airways disease Current visit: Yes Status: Acute (3) Chronic respiratory failure with hypoxia, on home oxygen therapy Current visit: Yes Status: Chronic Resuscitation Status: Full Code Assessment and Plan: I have independently evaluated and examined this patient. I reviewed the chart, the patient's history, and the PRACTICE MANAGEMENT CONSULTANT/PA's documented findings as above. We discussed and formulated the assessment and plan as above with additions as below: Mrs. Weber is significantly improved today and rested well on BiPAP overnight. She describes persistent exertional dyspnea even getting up to the commode but is relatively comfortable at rest and cough is partially improved with significant reduction in sputum production. She has noted some edema in her hands but lower extremity edema has improved. NAD, no respiratory distress at present Airflow diminished throughout but breath sounds clear Regular cardiac rhythm +1 edema at the left hand distal to Tubigrip anchoring IV, +1 edema at the right ankle, no edema at the left Respiratory acidosis improved with BiPAP, PCO2 [address] Walton consulted-case discussed with Yessy Zepeda APRN. Anticipate home ventilatory support with vent to mask. Mixed gram-positive/gram-negative organisms on sputum Gram stain-Rocephin added. Reassess chest x-ray in a.m. for vascular congestion. Hospital Course Summary Disclaimer: The visit summary below is not to be considered part of the above Progress Note.
[2017-03-22] MEDS: METHYLPREDNISOLONE SOD SUCC 125mg/2ml INJECTION IVP SCH ×5 (02:39→16:55)
[2017-03-22] MEDS: SALINE FLUSH 10ml SYRINGE IVF PRN ×2 (02:40→09:00)
[2017-03-22] MEDS: LORATADINE 10 MG TABLET PO SCH (06:18)
[2017-03-22] MEDS: ALBUTEROL/IPRATROPIUM 2.5mg-0.5mg/3ml NEB AEROSOL SCH ×4 (06:43→20:57)
[2017-03-22] MEDS: BUDESONIDE INH.SOLN 0.5mg/2ml NEB AEROSOL SCH ×2 (06:43→20:56)
[2017-03-22] MEDS: GUAIFENESIN LA 600 MG TABLET PO SCH ×2 (08:54→20:54)
[2017-03-22] MEDS: FLUTICASONE NASAL SPRAY 50mcg EA NOSTRIL SCH (08:55)
--- NOTE | 2017-03-22 09:28 | XRay Report ---
Indication: COPD exacerbation PROCEDURE: XR chest 1V: Encounter: Initial Comparison: March 20, 2017 and June 28, 2015 Findings: Emphysema and hyperinflation is again seen. Faint airspace opacity in the peripheral right upper lobe. No pneumothorax. Possible trace right effusion. Heart size and mediastinal contours are stable. Pulmonary vascular congestion has improved. Impression: Improved pulmonary vascular congestion. Possible mild right upper lobe infiltrate. .
[2017-03-22] MEDS: NS FLUSH BAG 500ml IV PRN (10:43)
[2017-03-22] MEDS: CEFTRIAXONE 1 G in NS 100 ML IV SCH (10:47)
[2017-03-22] MEDS: TIOTROPIUM 18mcg/cap HANDIHALER ORAL INH SCH (11:30)
[2017-03-22] MEDS ORDERED: AZITHROMYCIN 500 MG TABLET PO SCH (15:00)
--- NOTE | 2017-03-22 17:37 | Progress Note ---
<JourdanPatricia Brett - Last Filed: 03/22/17 17:34> Subjective: Judie states that she feels better and everyone is telling her that she looks better today. Her breathing has improved - currently she's not needing the bipap. She is coughing and brought a little up today. She denies chest pain or dizziness. No abdominal pain, nausea, or constipation. She denies any oral sores or thrush. She has been out of bed only to walk to the commode - this makes her very short of breath. She feels like she's retaining a lot of extra fluid and asked Dr. Rdz for a diuretic earlier today. Objective Vital signs: Temperature 98.0 F 03/22/17 15:27 Pulse Rate 104 H 03/22/17 15:27 Respiratory Rate 20 03/22/17 15:41 Blood Pressure 127/69 03/22/17 15:27 Pulse Oximetry 91 03/22/17 15:41 Height/Weight/BMI: Height 1.5 m Weight 58.9 kg Body Mass Index 24.2 - Constitutional Present: no acute distress, well nourished, well developed, thin - Routine HEENT Exam Eye: Absent: conjunctival icterus ENT: Present: mucous membranes moist, oropharynx clear - Routine Respiratory Exam Present: decreased breath sounds, diminished air movement - Routine Cardiovascular Exam Present: RRR, S1, S2 - Routine Abdominal Exam Present: soft, normoactive bowel sounds, non tender - Routine Extremities Exam Present: edema (R ankle 1+ (chronic per pt)). Absent: calf tenderness - Routine Skin Exam Present: intact, dry, warm - Routine Neurological Exam Present: alert, oriented X3 - Routine Psychiatric Exam Present: normal affect, normal thought process, cooperative Results - Labs CBC & Chem 7: 03/22/17 04:48 03/22/17 04:48 - ABG Interpretation ABG results: 03/20/17 03/20/17 03/21/17 14:30 17:40 07:15 ABG pH 7.273 L 7.283 L Cancelled ABG pCO2 101 H* 101 H* Cancelled ABG pO2 65 L 74 L Cancelled ABG HCO3 47 H 48 H Cancelled ABG Total CO2 50 H > 50 H Cancelled ABG O2 Saturation 87.0 L 91.0 L Cancelled ABG Base Excess 14.0 H 15.0 H Cancelled 03/21/17 07:48 ABG pH 7.402 ABG pCO2 81 H* ABG pO2 83 ABG HCO3 50 H ABG Total CO2 > 50 H ABG O2 Saturation 95.0 ABG Base Excess 21.0 H - Imaging and Cardiology Chest x-ray Status: image reviewed by me (Improved pulmonary vascular congestion. Possible mild right infiltrate.) Assessment and Plan (1) Acute exacerbation of chronic obstructive airways disease Current visit: Yes Status: Acute (2) Acute and chronic respiratory failure with hypercapnia Current visit: Yes Status: Acute (3) Chronic respiratory failure with hypoxia, on home oxygen therapy Current visit: Yes Status: Chronic 03/20/17 15:[address] Galindo; chronic home oxygen at baseline of 3-4L. DVT Prophylaxis: SCD's Resuscitation Status: Full Code Assessment and Plan: Impression Acute on chronic respiratory failure with hypercapnia and hypoxia. COPD exacerbation, acute. Chronic respiratory failure requiring chronic supplemental oxygen at 4L-follows with Dr. Galindo. Anxiety, chronic. History of tobacco dependency - quit in 2004. CHF, diastolic dysfunction, chronic. Plan Bumex 1 mg IV x1 for fluid retention. Weight is up ~4 kg. Pulm vasc congestion improved per CXR. Continue Ariel/Azithro for COPD exac and mixed gram pos/neg findings on sputum cx. Azithro converted to oral. CXR shows poss R lung infiltrate. Steroids tapered to 62.5 mg Q8h. Pt is interested in establishing pulm care with Dr. Walton following dc. Discussed with Dr. Rdz. Hospital Course Summary Disclaimer: The visit summary below is not to be considered part of the above Progress Note. Hospital Course: Assessment Acute on chronic respiratory failure with hypercapnia and hypoxia. COPD exacerbation, acute. Chronic respiratory failure requiring chronic supplemental oxygen at 4L-follows with Dr. Galindo. Anxiety, chronic. History of tobacco dependency - quit in 2004. CHF, diastolic dysfunction, chronic. Plan-03/20 (Admission) Admit to inpatient status under the care of the hospitalist service, Dr. Rdz. ABG obtained immediately upon arrival to inpatient unit-revealed acute on chronic respiratory failure as indicated by elevated pCO2 at 101 and acidosis ( pH 7.273). Respiratory therapy consulted and initiated bipap, which patient is tolerating well. History of chronic oxygen use at home at 3-4L. Follows with Dr. Galindo in [place]. Monitor closely on telemetry with continuous pulse oximetry. CXR in ED revealed mild pulmonary edema superimposed upon emphysema. Echo in 2015 revealed diastolic dysfunction with EF 52-55%. Patient has seen Dr. Price previously. Patient was given Lasix 20mg IV x 1 dose in ED. Continue home Bumex 0.5mg daily and monitor I&O closely. Monitor daily weights closely for signs of fluid overload. Sputum culture obtained in ED. Azithromycin 500mg IV given in ED. Will continue azithromycin 500mg IV daily for empiric treatment of pulmonary pathogens. Monitor sputum culture and sensitivity and adjust treatment as indicated. Respiratory support including supplemental oxygen, DuoNeb and Pulmicort treatments and bipap as needed for dyspnea. Ativan 0.5mg Q6H PRN anxiety. Mucinex for mucolytic effect and encourage incentive spirometry. Solu-Medrol 125mg Q6H for pulmonary inflammation. Anticipate hyperglycemia secondary to steroid effect. Will monitor BGMs closely and SSI as indicated. Low salt diet as tolerated. History of seasonal allergies. Will initiate Claritin which patient reports she has used successfully in the past in addition to Flonase for allergic rhinitis and congestion. Will recheck CBC and BMP in AM to monitor blood counts, electrolyses and renal function. Upon discharge, patient's care will be returned to her PCP, Dr. Person. 03/21/17 Seen by pulm today - recommending home ventilatory mask. ABG showed improvement in respiratory acidosis, but CO2 is still elevated at 81. Day #2 of Azithromycin; Rocephin started. White count is normal, afebrile. Continue Solu-Medrol, will discuss tapering with attending. Repeat CXR in am. Clinical improvement noted with one time dose of Lasix yesterday. 03/22/17 Bumex 1 mg IV x1 for fluid retention. Weight is up ~4 kg. Pulm vasc congestion improved per CXR. Continue Ariel/Azithro for COPD exac and mixed gram pos/neg findings on sputum cx. Azithro converted to oral. CXR shows poss R lung infiltrate. Steroids tapered to 62.5 mg Q8h. Pt is interested in establishing pulm care with Dr. Walton following dc. Discussed with Dr. Rdz. <KajalMaame L - Last Filed: 03/22/17 20:23> Objective Vital signs: Temperature 98.0 F 03/22/17 15:27 Pulse Rate 104 H 03/22/17 15:27 Respiratory Rate 20 03/22/17 15:41 Blood Pressure 127/69 03/22/17 15:27 Pulse Oximetry 91 03/22/17 15:41 Height/Weight/BMI: Height 1.5 m Weight 58.9 kg Body Mass Index 24.2 Results - Labs CBC & Chem 7: 03/22/17 04:48 03/22/17 04:48 - ABG Interpretation ABG results: 03/20/17 03/20/17 03/21/17 14:30 17:40 07:15 ABG pH 7.273 L 7.283 L Cancelled ABG pCO2 101 H* 101 H* Cancelled ABG pO2 65 L 74 L Cancelled ABG HCO3 47 H 48 H Cancelled ABG Total CO2 50 H > 50 H Cancelled ABG O2 Saturation 87.0 L 91.0 L Cancelled ABG Base Excess 14.0 H 15.0 H Cancelled 03/21/17 07:48 ABG pH 7.402 ABG pCO2 81 H* ABG pO2 83 ABG HCO3 50 H ABG Total CO2 > 50 H ABG O2 Saturation 95.0 ABG Base Excess 21.0 H Assessment and Plan (1) Acute and chronic respiratory failure with hypercapnia Current visit: Yes Status: Acute (2) Acute exacerbation of chronic obstructive airways disease Current visit: Yes Status: Acute (3) Chronic respiratory failure with hypoxia, on home oxygen therapy Current visit: Yes Status: Chronic Assessment and Plan: I have independently evaluated and examined this patient. I reviewed the chart, the patient's history, and the CARPET FLOOR LAYER APPRENTICE/PA's documented findings as above. We discussed and formulated the assessment and plan as above with additions as below: Mrs. Weber reports that she's tolerating BiPAP well but continues to have exertional dyspnea even getting up to the commode. Overall she feels significantly better than she did on admission. She denied fevers or chills but is concerned about increased weight and edema. She complains of generalized weakness. Alert, NAD, mildly labored respirations Airflow diminished throughout, breath sounds clear Trace edema Chest x-ray reviewed by myself-minor increased vascular markings Sputum culture with gram-negative rods on preliminary report-identification pending HC03 [id number] on chemistries Discussed with Dr. Walton-will require home Vent to mask. We will ask case management to work on coordinating equipment. Convert to prednisone in a.m., continue diuresis. PT/OT evaluations. Decreased dose azithromycin 250 mg Sunday-will discuss with Dr. Walton. Hospital Course Summary Disclaimer: The visit summary below is not to be considered part of the above Progress Note.
[2017-03-22] MEDS: AZITHROMYCIN 250 MG TABLET PO SCH (20:42)
[2017-03-23] MEDS: METHYLPREDNISOLONE SOD SUCC 125mg/2ml INJECTION IVP SCH (01:16)
[2017-03-23] MEDS: SALINE FLUSH 10ml SYRINGE IVF PRN ×5 (01:16→14:46)
[2017-03-23] MEDS: LORATADINE 10 MG TABLET PO SCH (06:01)
[2017-03-23] MEDS: BUMETANIDE 1 MG TABLET PO SCH ×2 (06:09→14:36)
[2017-03-23] MEDS: BUDESONIDE INH.SOLN 0.5mg/2ml NEB AEROSOL SCH ×2 (06:54→20:28)
[2017-03-23] MEDS: ALBUTEROL/IPRATROPIUM 2.5mg-0.5mg/3ml NEB AEROSOL SCH ×4 (06:54→20:28)
--- NOTE | 2017-03-23 09:33 | Pulmonology Progress Note ---
Subjective Interval history: Pt sitting up in bed, states her breathing is doing better. Currently with baseline SOB and slight cough and sputum. On O2 at 5L per NC day and bipap at noc. Exam Vital signs: Temperature 96.9 F 03/23/17 07:53 Pulse Rate 103 H 03/23/17 07:53 Respiratory Rate 20 03/23/17 07:53 Blood Pressure 139/73 03/23/17 07:53 Pulse Oximetry 91 03/23/17 07:53 - Constitutional no acute distress, cachectic - Routine HEENT Exam Head: Present: normocephalic, atraumatic Eye: Present: EOMI, PERRL - Routine Neck Exam Present: full ROM - Routine Respiratory Exam Present: decreased breath sounds - Routine Cardiovascular Exam Present: RRR, no murmur - Routine Abdominal Exam Present: soft, normoactive bowel sounds - Routine Extremities Exam Present: no edema, non tender, full ROM - Routine Back/Spine/Pelvis Exam Back/Spine: Present: full ROM - Routine Skin Exam Present: intact, dry - Routine Neurological Exam Present: alert, oriented X3, CN II-XII intact - Routine Psychiatric Exam Present: normal affect, normal thought process Progress Note-A&P - Time Spent With Patient Total time spent is greater than 50% in coordination of care (as documented) at patient's floor/unit and/or counseling patient: less than 15 minutes (1) Acute and chronic respiratory failure with hypercapnia Status: Acute Current Visit: Yes (2) Acute exacerbation of chronic obstructive airways disease Status: Acute Current Visit: Yes (3) Anxiety Status: Chronic Current Visit: Yes (4) Diastolic CHF, chronic Status: Chronic Current Visit: Yes - Assessment and Plan Pt currently on O2 at 5L per NC, uses 3-4L usually at home. Using bipap qHS and tolerating 14, 14/6. Slight cough, still on Azithro/Rocephin for serratia in sputum, CXR with improved congestion with RML infiltrate. Would continue 10 days abx, will continue home meds with Advair 230/21 2 puffs BID, spiriva daily and a/a neb prn. Will have her follow up in 3-[address] Walton.
[2017-03-23] MEDS: PredniSONE 20 MG TABLET PO SCH (09:34)
[2017-03-23] MEDS: CEFTRIAXONE 1 G in NS 100 ML IV SCH (09:34)
[2017-03-23] MEDS: GUAIFENESIN LA 600 MG TABLET PO SCH ×2 (09:34→21:06)
[2017-03-23] MEDS: FLUTICASONE NASAL SPRAY 50mcg EA NOSTRIL SCH (09:36)
[2017-03-23] MEDS: TIOTROPIUM 18mcg/cap HANDIHALER ORAL INH SCH (12:57)
[2017-03-23] MEDS: ALPRAZolam 0.25 MG TABLET PO PRN (21:05)
[2017-03-23] MEDS: AZITHROMYCIN 250 MG TABLET PO SCH (21:06)
--- NOTE | 2017-03-23 21:39 | Progress Note ---
Subjective: Mrs. Weber reports that her edema has improved but is not yet back to normal. She continues to have difficulty with air hunger and is concerned that she has not had any Xanax (it is ordered). Overall dyspnea has improved somewhat and she was able to ambulate in the halls today with less exertional dyspnea that she's previously described. She denies nausea and had a bowel movement earlier, has had no palpitations, and has not been lightheaded today. Exercise oximetry today demonstrated significant desaturation (72% on 6 L) requiring 12 L supplemental oxygen over 9 minutes to return oxygen saturation into the 90s. Objective Vital signs: Temperature 97.8 F 03/23/17 19:55 Pulse Rate 106 H 03/23/17 19:55 Respiratory Rate 24 03/23/17 20:29 Blood Pressure 146/71 H 03/23/17 19:55 Pulse Oximetry 91 -6L 03/23/17 20:29 I/O 736/2200, weight down 2.5 kg EXAM General-NAD, alert HEENT-conjunctiva clear, oropharynx clear Lungs-mildly labored respirations, very poor air flow, no wheezing or rhonchi but minimal airflow audible Cardiac-regular rhythm, S1-S2 Abd-soft, nontender, diminished bowel sounds Ext-without edema Neuro-MAEW Psych-anxious - Height/Weight/BMI: Height 1.5 m Weight 56.4 kg Body Mass Index 24.2 Results - Labs CBC & Chem 7: 03/23/17 04:48 03/23/17 04:48 Labs: Magnesium 2.1 Microbiology Results: Sputum positive for Serratia-resistant to cefazolin - ABG Interpretation ABG results: 03/20/17 03/20/17 03/21/17 14:30 17:40 07:15 ABG pH 7.273 L 7.283 L Cancelled ABG pCO2 101 H* 101 H* Cancelled ABG pO2 65 L 74 L Cancelled ABG HCO3 47 H 48 H Cancelled ABG Total CO2 50 H > 50 H Cancelled ABG O2 Saturation 87.0 L 91.0 L Cancelled ABG Base Excess 14.0 H 15.0 H Cancelled 03/21/17 07:48 ABG pH 7.402 ABG pCO2 81 H* ABG pO2 83 ABG HCO3 50 H ABG Total CO2 > 50 H ABG O2 Saturation 95.0 ABG Base Excess 21.0 H Assessment and Plan (1) Acute and chronic respiratory failure with hypercapnia Current visit: Yes Status: Acute (2) Acute exacerbation of chronic obstructive airways disease Current visit: Yes Status: Acute (3) Chronic respiratory failure with hypoxia, on home oxygen therapy Current visit: Yes Status: Chronic DVT Prophylaxis: SCD's, Lovenox GI Prophylaxis: Pepcid Resuscitation Status: Full Code Assessment and Plan: Impression Acute on chronic respiratory failure with hypercapnia and hypoxia. COPD exacerbation, acute. Chronic respiratory failure requiring chronic supplemental oxygen at 4L-follows with Dr. Galindo. Anxiety, chronic. History of tobacco dependency - quit in 2004. CHF, diastolic dysfunction, chronic. Plan Converted to prednisone 60 mg daily this morning, continue. Discussed with Yessy Zepeda APRN today-no additional pulmonary changes anticipated at this time. Plan Advair/Spiriva. Home Trilogy approved but will not be available until at least Sunday-patient aware. Very poor exercise tolerance due to hypoxia/exercise tolerance but PT/OT felt capable of discharge home with home health. Daughter has requested IRU screen for strengthening-ordered. Diuresing well, continue. Alprazolam available for air hunger, frequency increased to 4 times a day when necessary. Continue Rocephin at present for Serratia in sputum in conjunction with azithromycin Sunday. Convert to oral antibiotic prior to discharge-Levaquin sensitive. Discussed with RT and case management in addition to pulmonary. Hospital Course Summary Disclaimer: The visit summary below is not to be considered part of the above Progress Note. Hospital Course: Assessment Acute on chronic respiratory failure with hypercapnia and hypoxia. COPD exacerbation, acute. Chronic respiratory failure requiring chronic supplemental oxygen at 4L-follows with Dr. Galindo. Anxiety, chronic. History of tobacco dependency - quit in 2004. CHF, diastolic dysfunction, chronic. Plan-03/20 (Admission) Admit to inpatient status under the care of the hospitalist service, Dr. Rdz. ABG obtained immediately upon arrival to inpatient unit-revealed acute on chronic respiratory failure as indicated by elevated pCO2 at 101 and acidosis ( pH 7.273). Respiratory therapy consulted and initiated bipap, which patient is tolerating well. History of chronic oxygen use at home at 3-4L. Follows with Dr. Galindo in [place]. Monitor closely on telemetry with continuous pulse oximetry. CXR in ED revealed mild pulmonary edema superimposed upon emphysema. Echo in 2015 revealed diastolic dysfunction with EF 52-55%. Patient has seen Dr. Price previously. Patient was given Lasix 20mg IV x 1 dose in ED. Continue home Bumex 0.5mg daily and monitor I&O closely. Monitor daily weights closely for signs of fluid overload. Sputum culture obtained in ED. Azithromycin 500mg IV given in ED. Will continue azithromycin 500mg IV daily for empiric treatment of pulmonary pathogens. Monitor sputum culture and sensitivity and adjust treatment as indicated. Respiratory support including supplemental oxygen, DuoNeb and Pulmicort treatments and bipap as needed for dyspnea. Ativan 0.5mg Q6H PRN anxiety. Mucinex for mucolytic effect and encourage incentive spirometry. Solu-Medrol 125mg Q6H for pulmonary inflammation. Anticipate hyperglycemia secondary to steroid effect. Will monitor BGMs closely and SSI as indicated. Low salt diet as tolerated. History of seasonal allergies. Will initiate Claritin which patient reports she has used successfully in the past in addition to Flonase for allergic rhinitis and congestion. Will recheck CBC and BMP in AM to monitor blood counts, electrolyses and renal function. Upon discharge, patient's care will be returned to her PCP, Dr. Person. 03/21/17 Seen by pulm today - recommending home ventilatory mask. ABG showed improvement in respiratory acidosis, but CO2 is still elevated at 81. Day #2 of Azithromycin; Rocephin started. White count is normal, afebrile. Continue Solu-Medrol, will discuss tapering with attending. Repeat CXR in am. Clinical improvement noted with one time dose of Lasix yesterday. 03/22/17 Bumex 1 mg IV twice a day for fluid retention. Weight is up ~4 kg. Pulm vasc congestion improved per CXR. Continue Ariel/Azithro for COPD exac and mixed gram pos/neg findings on sputum cx. Azithro converted to oral. CXR shows poss R lung infiltrate. Steroids tapered to 62.5 mg Q8h convert to prednisone in a.m.. Pt is interested in establishing pulm care with Dr. Walton following dc. 03/23/17 Converted to prednisone 60 mg daily this morning, continue. Discussed with Yessy Katelyn T[employer]RIST HOME KEEPER today-no additional pulmonary changes anticipated at this time. Plan Advair/Spiriva. Home Trilogy approved but will not be available until at least Sunday-patient aware. Very poor exercise tolerance due to hypoxia/exercise tolerance but PT/OT felt capable of discharge home with home health. Daughter has requested IRU screen for strengthening-ordered. Diuresing well, continue. Alprazolam available for air hunger, frequency increased to 4 times a day when necessary. Continue Rocephin at present for Serratia in sputum in conjunction with azithromycin Sunday. Convert to oral antibiotic prior to discharge-Levaquin sensitive.
[2017-03-24] MEDS ORDERED: MENTHOL COUGH DROPS (RICOLA) MM PRN (03:19)
[2017-03-24] MEDS: LORATADINE 10 MG TABLET PO SCH (06:38)
[2017-03-24] MEDS: BUMETANIDE 1 MG TABLET PO SCH ×2 (06:38→14:16)
[2017-03-24] MEDS: BUDESONIDE INH.SOLN 0.5mg/2ml NEB AEROSOL SCH ×2 (07:29→18:50)
[2017-03-24] MEDS: ALBUTEROL/IPRATROPIUM 2.5mg-0.5mg/3ml NEB AEROSOL SCH ×4 (07:29→18:50)
[2017-03-24] MEDS: ENOXAPARIN 40 MG/0.4 ML INJECTION SQ SCH (08:59)
[2017-03-24] MEDS: FAMOTIDINE 20 MG TABLET PO SCH ×2 (08:59→21:10)
[2017-03-24] MEDS: PredniSONE 20 MG TABLET PO SCH (08:59)
[2017-03-24] MEDS: FLUTICASONE NASAL SPRAY 50mcg EA NOSTRIL SCH (08:59)
[2017-03-24] MEDS: GUAIFENESIN LA 600 MG TABLET PO SCH ×2 (08:59→21:10)
[2017-03-24] MEDS: CEFTRIAXONE 1 G in NS 100 ML IV SCH (09:00)
--- NOTE | 2017-03-24 16:33 | Progress Note ---
<JourdanPatricia D - Last Filed: 03/24/17 16:30> Subjective: Judie is feeling much better. She's getting stronger and she is noticing much improvement in her breathing. She's able to walk to the bathroom with her walker with a steady gait, no dizziness, and baseline amount of dyspnea. Her sats drop to 85% after this activity even on 6L of O2. She denies chest pain. She denies abdominal or GI complaints. Her appetite has been good. She is urinating frequently - diuretic effect. Objective Vital signs: Temperature 97.4 F 03/24/17 15:25 Pulse Rate 100 03/24/17 15:25 Respiratory Rate 22 03/24/17 15:25 Blood Pressure 148/74 H 03/24/17 15:25 Pulse Oximetry 91 03/24/17 15:25 Height/Weight/BMI: Height 1.5 m Weight 57 kg Body Mass Index 24.2 - Constitutional Present: no acute distress, well nourished, well developed, thin - Routine HEENT Exam ENT: Present: mucous membranes dry, oropharynx clear - Routine Respiratory Exam Present: diminished air movement - Routine Cardiovascular Exam Present: RRR, S1, S2 - Routine Abdominal Exam Present: soft, normoactive bowel sounds, non distended, non tender - Routine Extremities Exam Present: edema (RLE) - Routine Musculoskeletal Exam Musculoskeletal: Absent: no clubbing or cyanosis (clubbing in fingertips) - Routine Skin Exam Present: intact, dry, warm - Routine Neurological Exam Present: alert, oriented X3 - Routine Psychiatric Exam Present: normal affect, normal thought process, cooperative Results - Labs CBC & Chem 7: 03/23/17 04:48 03/24/17 04:53 - ABG Interpretation ABG results: 03/20/17 03/20/17 03/21/17 14:30 17:40 07:15 ABG pH 7.273 L 7.283 L Cancelled ABG pCO2 101 H* 101 H* Cancelled ABG pO2 65 L 74 L Cancelled ABG HCO3 47 H 48 H Cancelled ABG Total CO2 50 H > 50 H Cancelled ABG O2 Saturation 87.0 L 91.0 L Cancelled ABG Base Excess 14.0 H 15.0 H Cancelled VBG pH VBG pCO2 VBG pO2 VBG HCO3 VBG Total CO2 VBG O2 Saturation VBG Base Excess 03/21/17 03/24/17 03/24/17 07:48 06:20 11:57 ABG pH 7.402 ABG pCO2 81 H* ABG pO2 83 ABG HCO3 50 H ABG Total CO2 > 50 H ABG O2 Saturation 95.0 ABG Base Excess 21.0 H VBG pH 7.377 7.408 VBG pCO2 100.5 H 86.5 H VBG pO2 99 H 167 H VBG HCO3 59 H 55 H VBG Total CO2 > 50 > 50 VBG O2 Saturation 97.0 99.0 VBG Base Excess 27.0 H 23.0 H Assessment and Plan (1) Acute exacerbation of chronic obstructive airways disease Current visit: Yes Status: Acute (2) Acute and chronic respiratory failure with hypercapnia Current visit: Yes Status: Acute (3) Chronic respiratory failure with hypoxia, on home oxygen therapy Current visit: Yes Status: Chronic 03/20/17 15:[address] Galindo; chronic home oxygen at baseline of 3-4L. Resuscitation Status: Full Code Assessment and Plan: Impression Acute on chronic respiratory failure with hypercapnia and hypoxia. COPD exacerbation, acute. Chronic respiratory failure requiring chronic supplemental oxygen at 4L-follows with Dr. Galindo. Hypokalemia, not POA Anxiety, chronic. History of tobacco dependency - quit in 2004. CHF, diastolic dysfunction, chronic. Plan Continue prednisone 60 mg. Per pulmonology, plan on Rx Advair/Spiriva. Waiting on home Trilogy. Continue with oral bumex - negative fluid balance and improved exercise tolerance. Hypokalemia has been corrected. Will start KDur daily. Elevated bicarb - increase use of bipap during the day. Pt verbalized understanding. Continue Rocephin; azithromycin Sunday, Sunday, Sunday D/W Dr. Rdz. Hospital Course Summary Disclaimer: The visit summary below is not to be considered part of the above Progress Note. Hospital Course: Assessment Acute on chronic respiratory failure with hypercapnia and hypoxia. COPD exacerbation, acute. Chronic respiratory failure requiring chronic supplemental oxygen at 4L-follows with Dr. Galindo. Anxiety, chronic. History of tobacco dependency - quit in 2004. CHF, diastolic dysfunction, chronic. Plan-03/20 (Admission) Admit to inpatient status under the care of the hospitalist service, Dr. Rdz. ABG obtained immediately upon arrival to inpatient unit-revealed acute on chronic respiratory failure as indicated by elevated pCO2 at 101 and acidosis ( pH 7.273). Respiratory therapy consulted and initiated bipap, which patient is tolerating well. History of chronic oxygen use at home at 3-4L. Follows with Dr. Galindo in [place]. Monitor closely on telemetry with continuous pulse oximetry. CXR in ED revealed mild pulmonary edema superimposed upon emphysema. Echo in 2015 revealed diastolic dysfunction with EF 52-55%. Patient has seen Dr. Price previously. Patient was given Lasix 20mg IV x 1 dose in ED. Continue home Bumex 0.5mg daily and monitor I&O closely. Monitor daily weights closely for signs of fluid overload. Sputum culture obtained in ED. Azithromycin 500mg IV given in ED. Will continue azithromycin 500mg IV daily for empiric treatment of pulmonary pathogens. Monitor sputum culture and sensitivity and adjust treatment as indicated. Respiratory support including supplemental oxygen, DuoNeb and Pulmicort treatments and bipap as needed for dyspnea. Ativan 0.5mg Q6H PRN anxiety. Mucinex for mucolytic effect and encourage incentive spirometry. Solu-Medrol 125mg Q6H for pulmonary inflammation. Anticipate hyperglycemia secondary to steroid effect. Will monitor BGMs closely and SSI as indicated. Low salt diet as tolerated. History of seasonal allergies. Will initiate Claritin which patient reports she has used successfully in the past in addition to Flonase for allergic rhinitis and congestion. Will recheck CBC and BMP in AM to monitor blood counts, electrolyses and renal function. Upon discharge, patient's care will be returned to her PCP, Dr. Person. 03/21/17 Seen by pulm today - recommending home ventilatory mask. ABG showed improvement in respiratory acidosis, but CO2 is still elevated at 81. Day #2 of Azithromycin; Rocephin started. White count is normal, afebrile. Continue Solu-Medrol, will discuss tapering with attending. Repeat CXR in am. Clinical improvement noted with one time dose of Lasix yesterday. 03/22/17 Bumex 1 mg IV twice a day for fluid retention. Weight is up ~4 kg. Pulm vasc congestion improved per CXR. Continue Ariel/Azithro for COPD exac and mixed gram pos/neg findings on sputum cx. Azithro converted to oral. CXR shows poss R lung infiltrate. Steroids tapered to 62.5 mg Q8h convert to prednisone in a.m.. Pt is interested in establishing pulm care with Dr. Walton following dc. 03/23/17 Converted to prednisone 60 mg daily this morning, continue. Discussed with Yessy Zepeda APRN today-no additional pulmonary changes anticipated at this time. Plan Advair/Spiriva. Home Trilogy approved but will not be available until at least Sunday-patient aware. Very poor exercise tolerance due to hypoxia/exercise tolerance but PT/OT felt capable of discharge home with home health. Daughter has requested IRU screen for strengthening-ordered. Diuresing well, continue. Alprazolam available for air hunger, frequency increased to 4 times a day when necessary. Continue Rocephin at present for Serratia in sputum in conjunction with azithromycin Sunday. Convert to oral antibiotic prior to discharge-Levaquin sensitive. 03/24/17 Continue prednisone 60 mg. Per pulmonology, plan on Rx Advair/Spiriva. Waiting on home Trilogy. Continue with oral bumex - negative fluid balance and improved exercise tolerance. Hypokalemia has been corrected. Will start KDur daily. Elevated bicarb - increase use of bipap during the day. Pt verbalized understanding. Continue Rocephin; azithromycin Sunday, Sunday, Sunday <Maame Rdz - Last Filed: 03/24/17 17:44> Objective Vital signs: Temperature 97.4 F 03/24/17 15:25 Pulse Rate 98 03/24/17 16:51 Respiratory Rate 22 03/24/17 15:25 Blood Pressure 148/74 H 03/24/17 15:25 Pulse Oximetry 91 03/24/17 15:25 Height/Weight/BMI: Height 1.5 m Weight 57 kg Body Mass Index 24.2 Results - Labs CBC & Chem 7: 03/23/17 04:48 03/24/17 04:53 - ABG Interpretation ABG results: 03/20/17 03/20/17 03/21/17 14:30 17:40 07:15 ABG pH 7.273 L 7.283 L Cancelled ABG pCO2 101 H* 101 H* Cancelled ABG pO2 65 L 74 L Cancelled ABG HCO3 47 H 48 H Cancelled ABG Total CO2 50 H > 50 H Cancelled ABG O2 Saturation 87.0 L 91.0 L Cancelled ABG Base Excess 14.0 H 15.0 H Cancelled VBG pH VBG pCO2 VBG pO2 VBG HCO3 VBG Total CO2 VBG O2 Saturation VBG Base Excess 03/21/17 03/24/17 03/24/17 07:48 06:20 11:57 ABG pH 7.402 ABG pCO2 81 H* ABG pO2 83 ABG HCO3 50 H ABG Total CO2 > 50 H ABG O2 Saturation 95.0 ABG Base Excess 21.0 H VBG pH 7.377 7.408 VBG pCO2 100.5 H 86.5 H VBG pO2 99 H 167 H VBG HCO3 59 H 55 H VBG Total CO2 > 50 > 50 VBG O2 Saturation 97.0 99.0 VBG Base Excess 27.0 H 23.0 H Assessment and Plan (1) Acute and chronic respiratory failure with hypercapnia Current visit: Yes Status: Acute (2) Acute exacerbation of chronic obstructive airways disease Current visit: Yes Status: Acute (3) Chronic respiratory failure with hypoxia, on home oxygen therapy Current visit: Yes Status: Chronic DVT Prophylaxis: Lovenox GI Prophylaxis: Pepcid Assessment and Plan: I have independently evaluated and examined this patient. I reviewed the chart, the patient's history, and the COUNTER SALES REPRESENTATIVE/PA's documented findings as above. We discussed and formulated the assessment and plan as above with additions as below: Slow progress, Judie thinks her dyspnea is back to baseline and reports minimal cough and decreased sputum. She is voiding well and edema has largely resolved. She is diuresed well the past couple of days. Alert, speaking in full sentences although respirations are slightly labored Decreased airflow throughout but no wheezing No peripheral edema Decrease prednisone to 40 mg daily and Bumex to 1 mg daily (home dose report 5 mg daily). Day 4 ceftriaxone. Hospital Course Summary Disclaimer: The visit summary below is not to be considered part of the above Progress Note.
[2017-03-24] MEDS: AZITHROMYCIN 250 MG TABLET PO SCH (21:10)
[2017-03-24] MEDS: SALINE FLUSH 10ml SYRINGE IVF PRN (21:38)
[2017-03-24] MEDS: TIOTROPIUM 18mcg/cap HANDIHALER ORAL INH SCH (23:25)
[2017-03-24] MEDS: ALPRAZolam 0.25 MG TABLET PO PRN (23:42)
[2017-03-25] MEDS: LORATADINE 10 MG TABLET PO SCH (05:39)
[2017-03-25] MEDS: BUDESONIDE INH.SOLN 0.5mg/2ml NEB AEROSOL SCH ×2 (07:10→20:26)
[2017-03-25] MEDS: ALBUTEROL/IPRATROPIUM 2.5mg-0.5mg/3ml NEB AEROSOL SCH ×4 (07:10→20:25)
[2017-03-25] MEDS: TIOTROPIUM 18mcg/cap HANDIHALER ORAL INH SCH (07:54)
[2017-03-25] MEDS: ENOXAPARIN 40 MG/0.4 ML INJECTION SQ SCH (08:42)
[2017-03-25] MEDS: GUAIFENESIN LA 600 MG TABLET PO SCH ×2 (08:43→21:23)
[2017-03-25] MEDS: PredniSONE 20 MG TABLET PO SCH (08:43)
[2017-03-25] MEDS: FAMOTIDINE 20 MG TABLET PO SCH ×2 (08:43→21:23)
[2017-03-25] MEDS: BUMETANIDE 1 MG TABLET PO SCH (08:43)
[2017-03-25] MEDS: FLUTICASONE NASAL SPRAY 50mcg EA NOSTRIL SCH (08:45)
[2017-03-25] MEDS: CEFTRIAXONE 1 G in NS 100 ML IV SCH (09:21)
--- NOTE | 2017-03-25 14:18 | Progress Note ---
<Zahida Parra - Last Filed: 03/25/17 14:15> Subjective: Judie is seen in follow up. Reports feeling better than previous days. Still some VAZQUEZ. Reports that her HR is a bit high because she just got up to BR. Regrets her decision to smoke and the long-term damage it has caused. She is hoping to return home and care for her dogs. Denies any pain or acute c/o today. Chart is reviewed for collateral information. Objective Vital signs: Temperature 96.5 F L 03/25/17 07:40 Pulse Rate 92 03/25/17 07:40 Respiratory Rate 24 03/25/17 11:05 Blood Pressure 130/69 03/25/17 07:40 Pulse Oximetry 95 03/25/17 11:05 Rhythm: Sinus Tachycardia Height/Weight/BMI: Height 1.5 m Weight 55.3 kg Body Mass Index 24.2 - Constitutional Present: mild distress, thin, cooperative - Routine HEENT Exam Head: Present: normocephalic, atraumatic Eye: Present: EOMI, PERRL ENT: Present: mucous membranes moist - Routine Respiratory Exam Present: accessory muscle use, dyspnea, decreased breath sounds, wheezes, diminished air movement Comments: Increase A:P diameter. - Routine Cardiovascular Exam Present: RRR, S1, S2, no murmur - Routine Abdominal Exam Present: soft, normoactive bowel sounds, non distended, non tender - Routine Extremities Exam Present: no edema, non tender, full ROM - Routine Musculoskeletal Exam Musculoskeletal: Present: normal strength, no joint swelling, moving extremities well - Routine Skin Exam Present: intact, dry, warm - Routine Neurological Exam Present: alert, oriented X3, moving all extremities - Routine Psychiatric Exam Present: normal affect, cooperative Results - Labs CBC & Chem 7: 03/23/17 04:48 03/25/17 04:58 Microbiology Results: Microbiology 03/20/17 11:50 Sputum, Expectorated Gram Stain - Final 03/20/17 11:50 Sputum, Expectorated Sputum Culture - Final Serratia liquefaciens group Normal Respiratory Keysha - ABG Interpretation ABG results: 03/20/17 03/20/17 03/21/17 14:30 17:40 07:15 ABG pH 7.273 L 7.283 L Cancelled ABG pCO2 101 H* 101 H* Cancelled ABG pO2 65 L 74 L Cancelled ABG HCO3 47 H 48 H Cancelled ABG Total CO2 50 H > 50 H Cancelled ABG O2 Saturation 87.0 L 91.0 L Cancelled ABG Base Excess 14.0 H 15.0 H Cancelled VBG pH VBG pCO2 VBG pO2 VBG HCO3 VBG Total CO2 VBG O2 Saturation VBG Base Excess 03/21/17 03/24/17 03/24/17 07:48 06:20 11:57 ABG pH 7.402 ABG pCO2 81 H* ABG pO2 83 ABG HCO3 50 H ABG Total CO2 > 50 H ABG O2 Saturation 95.0 ABG Base Excess 21.0 H VBG pH 7.377 7.408 VBG pCO2 100.5 H 86.5 H VBG pO2 99 H 167 H VBG HCO3 59 H 55 H VBG Total CO2 > 50 > 50 VBG O2 Saturation 97.0 99.0 VBG Base Excess 27.0 H 23.0 H - Impressions Reviewed imaging. Assessment and Plan (1) Acute exacerbation of chronic obstructive airways disease Current visit: Yes Status: Acute (2) Acute and chronic respiratory failure with hypercapnia Current visit: Yes Status: Acute (3) Chronic respiratory failure with hypoxia, on home oxygen therapy Current visit: Yes Status: Chronic 03/20/17 15:[address] Galindo; chronic home oxygen at baseline of 3-4L. DVT Prophylaxis: SCD's GI Prophylaxis: Pepcid Resuscitation Status: Full Code Assessment and Plan: Assessment Acute on chronic respiratory failure with hypercapnia and hypoxia. COPD exacerbation, acute. Chronic respiratory failure requiring chronic supplemental oxygen at 4L-follows with Dr. Galindo. Anxiety, chronic. History of tobacco dependency - quit in 2004. CHF, diastolic dysfunction, chronic. Early pneumonia Plan: 03/25/17 slow improvement. Repeat CXR in AM for reassessment of early pulmonary infiltrate. Continue O2- baseline is 4L/NC. Steroids/Ceftriaxone d #5 Duoneb QID/Pulmicort BID. Plan to repeat labs in AM. Chronic respiratory failure is quite significant. Will need close follow up on DC- may benefit from HH as her goal is to stay in her home as long as possible. Continue PRN anti-anxiety medications to help her tolerate dyspnea, pulmonary support. Hospital Course Summary Disclaimer: The visit summary below is not to be considered part of the above Progress Note. Hospital Course: Assessment Acute on chronic respiratory failure with hypercapnia and hypoxia. COPD exacerbation, acute. Chronic respiratory failure requiring chronic supplemental oxygen at 4L-follows with Dr. Galindo. Anxiety, chronic. History of tobacco dependency - quit in 2004. CHF, diastolic dysfunction, chronic. Plan-03/20 (Admission) Admit to inpatient status under the care of the hospitalist service, Dr. Rdz. ABG obtained immediately upon arrival to inpatient unit-revealed acute on chronic respiratory failure as indicated by elevated pCO2 at 101 and acidosis ( pH 7.273). Respiratory therapy consulted and initiated bipap, which patient is tolerating well. History of chronic oxygen use at home at 3-4L. Follows with Dr. Galindo in [place]. Monitor closely on telemetry with continuous pulse oximetry. CXR in ED revealed mild pulmonary edema superimposed upon emphysema. Echo in 2015 revealed diastolic dysfunction with EF 52-55%. Patient has seen Dr. Price previously. Patient was given Lasix 20mg IV x 1 dose in ED. Continue home Bumex 0.5mg daily and monitor I&O closely. Monitor daily weights closely for signs of fluid overload. Sputum culture obtained in ED. Azithromycin 500mg IV given in ED. Will continue azithromycin 500mg IV daily for empiric treatment of pulmonary pathogens. Monitor sputum culture and sensitivity and adjust treatment as indicated. Respiratory support including supplemental oxygen, DuoNeb and Pulmicort treatments and bipap as needed for dyspnea. Ativan 0.5mg Q6H PRN anxiety. Mucinex for mucolytic effect and encourage incentive spirometry. Solu-Medrol 125mg Q6H for pulmonary inflammation. Anticipate hyperglycemia secondary to steroid effect. Will monitor BGMs closely and SSI as indicated. Low salt diet as tolerated. History of seasonal allergies. Will initiate Claritin which patient reports she has used successfully in the past in addition to Flonase for allergic rhinitis and congestion. Will recheck CBC and BMP in AM to monitor blood counts, electrolyses and renal function. Upon discharge, patient's care will be returned to her PCP, Dr. Person. 03/21/17 Seen by pulm today - recommending home ventilatory mask. ABG showed improvement in respiratory acidosis, but CO2 is still elevated at 81. Day #2 of Azithromycin; Rocephin started. White count is normal, afebrile. Continue Solu-Medrol, will discuss tapering with attending. Repeat CXR in am. Clinical improvement noted with one time dose of Lasix yesterday. 03/22/17 Bumex 1 mg IV twice a day for fluid retention. Weight is up ~4 kg. Pulm vasc congestion improved per CXR. Continue Ariel/Azithro for COPD exac and mixed gram pos/neg findings on sputum cx. Azithro converted to oral. CXR shows poss R lung infiltrate. Steroids tapered to 62.5 mg Q8h convert to prednisone in a.m.. Pt is interested in establishing pulm care with Dr. Walton following dc. 03/23/17 Converted to prednisone 60 mg daily this morning, continue. Discussed with Yessy Zepeda APRN today-no additional pulmonary changes anticipated at this time. Plan Advair/Spiriva. Home Trilogy approved but will not be available until at least Sunday-patient aware. Very poor exercise tolerance due to hypoxia/exercise tolerance but PT/OT felt capable of discharge home with home health. Daughter has requested IRU screen for strengthening-ordered. Diuresing well, continue. Alprazolam available for air hunger, frequency increased to 4 times a day when necessary. Continue Rocephin at present for Serratia in sputum in conjunction with azithromycin Sunday. Convert to oral antibiotic prior to discharge-Levaquin sensitive. 03/24/17 Continue prednisone 60 mg. Per pulmonology, plan on Rx Advair/Spiriva. Waiting on home Trilogy. Continue with oral bumex - negative fluid balance and improved exercise tolerance. Hypokalemia has been corrected. Will start KDur daily. Elevated bicarb - increase use of bipap during the day. Pt verbalized understanding. Continue Rocephin; azithromycin Sunday, Sunday, Sunday03/25/17 14:25 slow improvement. Repeat CXR in AM for reassessment of early pulmonary infiltrate. Continue O2- baseline is 4L/NC. Steroids/Ceftriaxone d #5 Duoneb QID/Pulmicort BID. Plan to repeat labs in AM. Chronic respiratory failure is quite significant. Will need close follow up on DC- may benefit from as her goal is to stay in her home as long as possible. Continue PRN anti-anxiety medications to help her tolerate dyspnea, pulmonary support. <Maame Rdz - Last Filed: 03/25/17 22:30> Objective Vital signs: Temperature 97.9 F 03/25/17 15:56 Pulse Rate 103 H 03/25/17 15:56 Respiratory Rate 18 03/25/17 20:26 Blood Pressure 115/65 03/25/17 15:56 Pulse Oximetry 90 03/25/17 20:26 Height/Weight/BMI: Height 1.5 m Weight 55.3 kg Body Mass Index 24.2 Results - Labs CBC & Chem 7: 03/23/17 04:48 03/25/17 04:58 - ABG Interpretation ABG results: 03/20/17 03/20/17 03/21/17 14:30 17:40 07:15 ABG pH 7.273 L 7.283 L Cancelled ABG pCO2 101 H* 101 H* Cancelled ABG pO2 65 L 74 L Cancelled ABG HCO3 47 H 48 H Cancelled ABG Total CO2 50 H > 50 H Cancelled ABG O2 Saturation 87.0 L 91.0 L Cancelled ABG Base Excess 14.0 H 15.0 H Cancelled VBG pH VBG pCO2 VBG pO2 VBG HCO3 VBG Total CO2 VBG O2 Saturation VBG Base Excess 03/21/17 03/24/17 03/24/17 07:48 06:20 11:57 ABG pH 7.402 ABG pCO2 81 H* ABG pO2 83 ABG HCO3 50 H ABG Total CO2 > 50 H ABG O2 Saturation 95.0 ABG Base Excess 21.0 H VBG pH 7.377 7.408 VBG pCO2 100.5 H 86.5 H VBG pO2 99 H 167 H VBG HCO3 59 H 55 H VBG Total CO2 > 50 > 50 VBG O2 Saturation 97.0 99.0 VBG Base Excess 27.0 H 23.0 H Assessment and Plan (1) Acute and chronic respiratory failure with hypercapnia Current visit: Yes Status: Acute (2) Acute exacerbation of chronic obstructive airways disease Current visit: Yes Status: Acute (3) Chronic respiratory failure with hypoxia, on home oxygen therapy Current visit: Yes Status: Chronic Assessment and Plan: I have independently evaluated and examined this patient. I reviewed the chart, the patient's history, and the PCTS/PA's documented findings as above. We discussed and formulated the assessment and plan as above with additions as below: Patient reports to the edema is doing significantly better. Breathing is a lot better compared to admission. She's been ambulating back and forth from the bathroom repetitively today. Cough is productive of more sputum today but she's had no fever. NAD, alert Very diminished breath sounds but clear, no wheezing No peripheral edema Convert from IV antibiotics to by mouth-Cefpodoxime (initially planned Levaquin but the oral cephalosporin will minimize drug reactions) ABG in a.m. to recertify home vent to mask. Dr. Walton updated. Hospital Course Summary Disclaimer: The visit summary below is not to be considered part of the above Progress Note.
[2017-03-25] MEDS: ALPRAZolam 0.25 MG TABLET PO PRN (22:39)
[2017-03-26] MEDS: LORATADINE 10 MG TABLET PO SCH (06:28)
[2017-03-26] MEDS: BUDESONIDE INH.SOLN 0.5mg/2ml NEB AEROSOL SCH (07:12)
[2017-03-26] MEDS: ALBUTEROL/IPRATROPIUM 2.5mg-0.5mg/3ml NEB AEROSOL SCH ×3 (07:12→15:23)
--- NOTE | 2017-03-26 08:10 | XRay Report ---
Indication: COPD XR chest 2V: Comparison: 03/22/2017 Technique: PA and lateral chest Findings: Patient continues to show chronic appearing lung changes with a stable heart size. No acute new findings are noted. Degenerative changes persist about the shoulders and the spine. Impression: Patient continues to show advanced COPD changes with no acute new cardiac findings. .
[2017-03-26] MEDS: PredniSONE 20 MG TABLET PO SCH (08:17)
[2017-03-26] MEDS: FAMOTIDINE 20 MG TABLET PO SCH (08:18)
[2017-03-26] MEDS: GUAIFENESIN LA 600 MG TABLET PO SCH (08:18)
[2017-03-26] MEDS: CEFPODOXIME 200mg TABLET PO SCH ×2 (08:18→17:25)
[2017-03-26] MEDS: BUMETANIDE 1 MG TABLET PO SCH (08:18)
[2017-03-26] MEDS: FLUTICASONE NASAL SPRAY 50mcg EA NOSTRIL SCH (08:20)
[2017-03-26] MEDS: TIOTROPIUM 18mcg/cap HANDIHALER ORAL INH SCH (08:51)
[2017-03-26] MEDS ORDERED: AZITHROMYCIN 250 MG TABLET PO SCH (09:00)
[2017-03-26] MEDS: ENOXAPARIN 40 MG/0.4 ML INJECTION SQ SCH (10:42)
--- NOTE | 2017-03-26 11:26 | Pulmonology Progress Note ---
Subjective Interval history: Pt sitting up in bed, states her breathing is doing better and she is bored and wanting to go home. Currently with baseline SOB and slight cough and sputum. On O2 at 4L per NC day and bipap at noc. Exam Vital signs: Temperature 96.9 F 03/26/17 07:00 Pulse Rate 82 03/26/17 07:00 Respiratory Rate 20 03/26/17 11:06 Blood Pressure 140/67 H 03/26/17 07:00 Pulse Oximetry 95 03/26/17 11:06 - Constitutional no acute distress - Routine HEENT Exam Head: Present: normocephalic, atraumatic Eye: Present: EOMI, PERRL - Routine Neck Exam Present: supple, full ROM - Routine Respiratory Exam Present: decreased breath sounds - Routine Cardiovascular Exam Present: RRR, no murmur - Routine Abdominal Exam Present: soft, normoactive bowel sounds - Routine Extremities Exam Present: no edema, non tender, full ROM - Routine Back/Spine/Pelvis Exam Back/Spine: Present: full ROM - Routine Skin Exam Present: intact, dry - Routine Neurological Exam Present: alert, oriented X3, CN II-XII intact - Routine Psychiatric Exam Present: normal affect, normal thought process Progress Note-A&P - Time Spent With Patient Total time spent is greater than 50% in coordination of care (as documented) at patient's floor/unit and/or counseling patient: less than 15 minutes (1) Acute and chronic respiratory failure with hypercapnia Status: Acute Current Visit: Yes (2) Acute exacerbation of chronic obstructive airways disease Status: Acute Current Visit: Yes (3) Anxiety Status: Chronic Current Visit: Yes (4) Diastolic CHF, chronic Status: Chronic Current Visit: Yes - Assessment and Plan Pt is currently on her home O2 at 4L per NC, tolerating well, bipap here, awaiting her home ventilator to mask from [facility]. Continue her BT's, encouraged her to use her advair 230 2 puffs BID and spiriva daily with prn a/a once home. She will need to f/u in 2-[address] Walton with a PFT once dismissed. Likely home soon.
[2017-03-26] MEDS: ALPRAZolam 0.25 MG TABLET PO PRN (13:34)
[2017-03-26 15:29] VITALS: BP 130/68; PULSE 85; RESP 18; TEMP 97.3; O2SAT 92
--- NOTE | 2017-03-26 16:19 | Discharge Instructions ---
Discharge Plan - Med Rec/Dispo Referrals/Follow Up: Dashawn Colunga DO [Family Provider] - 1 Week Jose Walton MD [Physician] - (Call office to schedule follow-up in 2-3 weeks with pulmonary function tests) Michael Instructions: COPD (Chronic Obstructive Pulmonary Disease) (GEN), Hypoxia (GEN) Prescriptions: New Albuterol Neb (0.083%) [Proventil Neb (0.083%)] 5 mg AEROSOL Q2H WA PRN neb PRN Reason: Shortness Of Air/Wheezing Cefpodoxime [Vantin] 200 mg PO BIDWM #8 tab Famotidine [Pepcid] 20 mg PO BID #60 tab Guaifenesin LA [Mucinex LA] 1,200 mg PO BID PRN #60 tab PRN Reason: Cough /Congestion Azithromycin [Zithromax Eq] 250 mg PO MoWeFr #15 tab Fluticasone Nasal [place] [Flonase] 2 spray EA NOSTRIL DAILY #1 bottle PredniSONE [Deltasone] 40 mg PO WB #40 tablet Continue ALPRAZolam [Xanax] 0.25 mg PO BID PRN #60 tab PRN Reason: AIR HUNGER/ANXIETY Fluticasone/Salmeterol [Advair Hfa 230-21 Mcg Inhaler] 2 puff INH BID #0 Tiotropium [place] [Spiriva] 1 cap ORAL INH DAILY #0 inhaler Potassium Chloride [Klor-Con 10] 10 meq PO DAILY Bumetanide 0.5 mg PO DAILY Buspirone HCl 7.5 mg PO BID Discharge Instructions/Outpatient Orders: Provider Discharge Instructions Location: Determined By Patient - Disposition [address] [place] [address]
--- NOTE | 2017-03-26 16:40 | Discharge Summary ---
Discharge Information Date of admission: 03/20/17 13:48 Anticipated date of discharge: 03/26/17 Attending Physician: Maame Rdz MD Primary care physician: Dashawn Colunga DO Consults: Consulting Provider: Jose Walton Reason For Exam: chronic respiratory failure/COPD - Discharge Diagnosis (1) Acute and chronic respiratory failure with hypercapnia Status: Acute (2) Acute exacerbation of chronic obstructive airways disease Status: Acute (3) Chronic respiratory failure with hypoxia, on home oxygen therapy Status: Chronic (4) Diastolic CHF, acute on chronic Status: Resolved Discharge Diagnosis: POA - Laboratory Labs: On admission CBC was unremarkable, sodium 134, chloride 81, bicarbonate 46, creatinine 0.5, and BNP 835. Admission blood gas 7.283/101/74/48 on BiPAP with FiO2 50%. Bicarbonate increased to 55 on 03/25 but was improved at discharge. ABG at discharge 7.423/81/106/53 on 4 L O2 per nasal cannula 03/26/17 04:06 03/26/17 04:06 - Microbiology Sputum culture on 03/20/17 was positive for light growth of Serratia liquefaciens group and normal lili - Radiology Radiology: Chest x-ray on it admission demonstrated COPD/emphysema with hyperinflated lung campbell and increased pulmonary vasculature. Improvement in vascular markings/ resolution of congestion was seen on follow-up films with no acute changes on final film on 03/26. History of Present Illness HPI: Judie Weber is a pleasant 76-year-old female who presented to [facility] emergency department via EMS today, 03/20/17, for evaluation of severe dyspnea and cough. She admits to a history of chronic respiratory failure requiring constant home oxygen at 4L/min secondary to COPD. She reports that a few months ago she had to increase her home oxygen from 3L to 4L. She follows with Dr. Galindo. For the past several days she has had increased dyspnea with cough and congestion. She admits to productive cough with white-yellow sputum, generalized weakness and occasional chills. She denies any known fevers, chest pain, abdominal pain, nausea, vomiting, dysuria, confusion or headache. She states she uses inhalers at home and tried a nebulized albuterol treatment this morning without improvement. Despite her home treatments and chronic oxygen use at 4L, she was unable to maintain her SAO2 greater than 90%, specifically with ambulation. EMS was dispatched and gave an additional albuterol treatment with Solu-Medrol 125mg IV prior to arrival. Upon arrival to the ED, she reports she felt a little better, but continued to have dyspnea. CXR was obtained and reviewed by myself. It revealed mild pulmonary edema superimposed upon emphysema. Labs were obtained and revealed WBC 8.4 with 87% neutrophils. CMP revealed elevated bicarb at 46 and otherwise unremarkable. Troponin was negative at <0.012 and BMP was 835. Respiratory viral panel was negative. While in the ED, Judie received 3 Xopenex treatments, Lasix 20mg IV and a dose of azithromycin 500mg IV for empiric coverage of pulmonary pathogens. Dr. Rdz was contacted and Judie was accepted into inpatient status for further evaluation, close respiratory monitoring as well as respiratory treatments and IV antibiotics for her acute on chronic respiratory failure and COPD exacerbation. Her length of stay is expected to exceed more than 2 over nights. On exam, she is seen immediately upon her arrival to room 148. She is noted to have moderate respiratory distress with increased effort and 1-2 word conversational dyspnea. Respiratory is at bedside on during exam. She denies any recent illness or sick contacts. She has not received her flu shot yet this year. Respiratory panel in ED was negative. Cardiac exam reveals tachycardia. Lungs sounds are diminished bilaterally. No retractions noted. Abdomen is soft, nontender with active bowel sounds and she asks for something to eat as she has not eaten all day and is hungry. 2+ pitting edema noted to right lower extremity vs. 1+ to left lower extremity. She reports that her right leg is always more swollen than her left. She is alert and orientated x 3. Hospital Course This is a general summary of the patient's hospital course. For more details refer to the complete medical record. Hospital course: Assessment Acute on chronic respiratory failure with hypercapnia and hypoxia. COPD exacerbation, acute. Chronic respiratory failure requiring chronic supplemental oxygen at 4L-follows with Dr. Galindo. Anxiety, chronic. History of tobacco dependency - quit in 2004. CHF, acute/diastolic dysfunction, chronic. Hospital course Mrs. Weber was hospitalized with what appeared to be acute COPD exacerbation and acute on chronic respiratory failure. ABG obtained immediately upon arrival to inpatient unit was consistent with acute on chronic respiratory failure as indicated by elevated pCO2 at 101 and acidosis (pH 7.273) . Respiratory therapy consulted and initiated bipap, which patient tolerated well. She's previously been on home oxygen at 3-4 L and initially required higher flow oxygen during the hospital stay but titrated back to 3-4 L prior to discharge. She was treated with high-dose IV steroids in addition to diuresis initiated in the emergency room for mild increased vascular markings on chest x- ray. Aggressive beta agonist therapy was utilized and Pulmicort was added to breathing treatments twice daily. With high-dose steroids she developed some edema and volume overload requiring diuresis with Bumex for several days before home dose of Bumex was resumed to discharge. Follow-up films demonstrated resolution of the increased vascular markings present on admission. She was empirically treated with azithromycin and Rocephin for pulmonary bacterial pathogens receiving 5 days of Rocephin before conversion to Cefpodoxime to complete 10 day course. Azithromycin was converted to Sunday, Sunday, Sunday dosing. Dr. Walton was consulted for assistance in management due to severity of the patient's lung disease and the patient was qualified for home vent to mask to continue ventilatory assistance at discharge. She initially required BiPAP nearly continuously but has weaned down to nighttime use and occasional use during the day was stable PCO2. Prior to discharge patient requested that she return to [facility] for outpatient therapy as she feels she did better with the combined product Brovana which had been tried in recent months. She remains on Spiriva with nebulized albuterol as needed. [facility] ventilator unit was delivered on 03/26 at which time patient was felt stable to discharge home with home health assistance to assess patient's stability and provide some transitional physical therapy. Patient reports urinary frequency without dysuria on the date of discharge following recent diuresis and exertional dyspnea which is baseline for her. She denied palpitations or lightheadedness and expressed some anxiety about getting the mask on and off by herself at home. She is alert and in no distress, respirations were nonlabored at the time of my assessment although breath sounds are very diminished. No wheezing was present nor rhonchi. There is no edema in the extremities. Oxygen saturation prior to discharge is 98% on 3.5 L supplemental O2; she desaturates with ambulating and has required 6 L oxygen walking. She is asked to follow-up with Dr. Colunga in one week and Dr. Walton in 2-3 weeks. Medications were reviewed with the patient in detail and prescriptions provided for new medications. Quadrivalent flu vaccine given on 03/24/17. Time spent with patient: discharge greater than 30 minutes Discharge Plan - Med Rec/Dispo Referrals/Follow Up: Jose Walton MD [Physician] - (Call office to schedule follow-up in 2-3 weeks with pulmonary function tests) Dashawn Colunga DO [Family Provider] - 1 Week Michael Instructions: COPD (Chronic Obstructive Pulmonary Disease) (GEN), Hypoxia (GEN) Prescriptions: New Albuterol Neb (0.083%) [Proventil Neb (0.083%)] 5 mg AEROSOL Q2H WA PRN neb PRN Reason: Shortness Of Air/Wheezing Cefpodoxime [Vantin] 200 mg PO BIDWM #8 tab Famotidine [Pepcid] 20 mg PO BID #60 tab Guaifenesin LA [Mucinex LA] 1,200 mg PO BID PRN #60 tab PRN Reason: Cough /Congestion Azithromycin [Zithromax Eq] 250 mg PO MoWeFr #15 tab Fluticasone Nasal [place] [Flonase] 2 spray EA NOSTRIL DAILY #1 bottle PredniSONE [Deltasone] 40 mg PO WB #40 tablet Continue ALPRAZolam [Xanax] 0.25 mg PO BID PRN #60 tab PRN Reason: AIR HUNGER/ANXIETY Fluticasone/Salmeterol [Advair Hfa 230-21 Mcg Inhaler] 2 puff INH BID #0 Tiotropium [place] [Spiriva] 1 cap ORAL INH DAILY #0 inhaler Potassium Chloride [Klor-Con 10] 10 meq PO DAILY Bumetanide 0.5 mg PO DAILY Buspirone HCl 7.5 mg PO BID Discharge Instructions/Outpatient Orders: Provider Discharge Instructions Location: Determined By Patient - Disposition [address] [place] [address] Service
== END 2017-03-26 19:45 | disposition home health service (06) | DRG 189 ==
LOC: ED 10:58 → MED 13:48
PROVIDERS: ADMIT Internal Medicine; ATTEND Internal Medicine

== ENCOUNTER 2017-10-01 12:20 | Inpatient (IN) ==
[2017-10-01] MEDS ORDERED: MIDAZOLAM 5mg/5ml INJECTION IVP ONE ×3 (12:21→13:14)
[2017-10-01] MEDS ORDERED: SUCCINYLCHOLINE 20mg/mL 10mL INJECTION IVP ONE ×2 (12:21→12:49)
[2017-10-01] MEDS ORDERED: ALBUTEROL/IPRATROPIUM 2.5mg-0.5mg/3ml NEB IH ONE (12:46)
--- NOTE | 2017-10-01 12:49 | Emergency Department Report ---
General Adult HPI - General Chief complaint: Shortness of Breath/Dyspnea Stated complaint: COPD Time Seen by Provider: 10/01/17 12:45 Source: patient Mode of arrival: ambulatory Limitations: no limitations - History of Present Illness HPI narrative: Patient is a 76-year-old female, presents emergency room for evaluation of shortness of air. Patient history of COPD chronically on 2 L by nasal cannula. Patient's having increasing shortness of breath and dyspnea for the past 24 hours, EMS was called this morning patient was given Solu-Medrol and albuterol in route arrives unable to speak in complete sentences appears to be very weak I would consider her wearing out. Patient on nonrebreather receiving nebulizer treatment oxygen saturation 88% at this time - Related Data Home Medications Medication Instructions Recorded Confirmed Potassium Chloride [Klor-Con 10] 10 meq PO BID 03/20/17 10/01/17 ALPRAZolam [Xanax] 0.25 mg PO DAILY PRN 10/01/17 10/01/17 Bumetanide Tab [Bumex 1 mg Tab] 1 mg PO BID 10/01/17 10/01/17 Previous Rx's Medication Instructions Recorded Albuterol Neb (0.083%) [Proventil 5 mg AEROSOL Q2H WA PRN each 03/26/17 Neb (0.083%)] Azithromycin [Zithromax] 250 mg PO MoWeFr #15 tab 03/26/17 Famotidine [Pepcid] 20 mg PO BID #60 tab 03/26/17 Allergies Allergy/AdvReac Type Severity Reaction Status Date / Time Sulfa (Sulfonamide Allergy Unknown Verified 03/20/17 11:25 Antibiotics) Review of Systems Limitations: ROS unobtainable due to patient's medical condition PFS Patient Stated Medical History Chronic Obstructive Pulmonary Yes Disease (COPD) Medical History Updates: Anxiety. Depr. Hypokalemia Surgical History: Right hip-2006. Vaginal plessary. - Social History Smoking status: Former smoker (quit in 2004.) Substance use type: does not use Alcohol intake frequency: does not drink Housing: house Household members: none Current occupational status: retired Does patient use chewing tobacco?: No Current residence: Apartment/Private Home Physical Exam - Limitations Limitations: no limitations - General General appearance: obtunded - Eye Eye exam: Present: PERRL - ENT ENT exam: Present: normal oropharynx, TM's normal bilaterally - Neck Neck exam: Present: trachea midline - Chest Chest inspection: Present: symmetric chest wall rise. Absent: tenderness - Respiratory Respiratory exam: Present: respiratory distress, wheezes, accessory muscle use, prolonged expiratory phase - Cardiovascular Cardiovascular exam: Present: regular rate, normal rhythm, normal heart sounds - Abdominal Exam Abdominal exam: Present: soft, normal bowel sounds. Absent: distention, tenderness - Extremities Exam Extremities exam: Present: full ROM, tenderness - Back Exam Back exam: Present: tenderness - Skin Skin exam: Present: warm, dry Course Vital Signs Temperature 94.3 F L 10/01/17 12:20 Pulse Rate 104 H 10/01/17 12:20 Respiratory Rate 26 H 10/01/17 12:20 Blood Pressure 166/93 H 10/01/17 12:20 Pulse Oximetry 70 L 10/01/17 12:20 Temperature 94.3 F L 10/01/17 12:20 Pulse Rate 90 10/01/17 14:45 Respiratory Rate 20 10/01/17 14:45 Blood Pressure 75/52 10/01/17 14:45 Pulse Oximetry 96 10/01/17 14:45 Procedures - ABG Interpretation ABG Interpretation 1 Interpretation: abnormal, respiratory acidosis - Intubation Time out performed: Yes sedative: Versed Mg Given: 5 paralytic: Succinylcholine Mg Given: 100 Laryngoscope: Gilman ET Tube Size: 7 ET Tube Uncuffed: No Tube Secured Depth (cm): 23 Tube Secured Location: teeth Tube Placement Confirmation: visualized tube passing through cords, equal breath sounds bilaterally, no breath sounds over epigastrium, confirmation by capnometry Patient Tolerated Procedure: well Intubation Complications: none Additional Comments: Performed by wrapper selector under my supervision Medical Decision Making - [facility] Narrative Medical decision making narrative: Patient appears to be wearing out, respiratory rate is slowing patient unable to speak in complete sentences becoming more tendon. Patient is a full code did discuss with daughter, we will intubate at this time. Patient intubated by wrapper selector under my direct supervision. Confirmed by chest x-ray and tidal CO2 capnography bilateral lung sounds. Laboratories are consistent with a COPD exacerbation, patient did have a large amount of thick sputum suctioned, scuffs with Dr. Todd, we'll admit to the CCU - Lab Data Result diagrams: 10/01/17 12:06 10/01/17 12:06 Lab Results 10/01/17 10/01/17 10/01/17 Range/Units 12:06 12:06 13:31 WBC 9.5 (4.5-11.0) T/MM3 RBC 5.20 (4.00-5.20) M/MM3 Hgb 14.1 (12-16) GM/DL Hct 48.7 H (36-46) % MCV 93.7 (80-100) UM3 MCH 27.1 (26-34) UUG MCHC 29.0 L (31-37) GM/DL RDW Std Deviation 49.1 (36.9-50.2) FL Plt Count 215 (130-400) T/MM3 MPV 12.9 H (9.4-12.4) UM3 Immature Gran % (Auto) Not performed Neut % (Auto) Not performed Lymph % (Auto) Not performed [place] % (Auto) Not performed Eos % (Auto) Not performed Baso % (Auto) Not performed Neut # (Auto) Not performed Lymph # (Auto) Not performed [place] # (Auto) Not performed Eos # (Auto) Not performed Baso # (Auto) Not performed Abs Immat Gran (auto) Not performed Neutrophils % (Manual) 89.0 H (33-66) % Lymphocytes % (Manual) 5.0 L (23-45) % Monocytes % (Manual) 5.0 (0-9.0) % Basophils % (Manual) 1.0 (0-2) % Neutrophils # (Manual) 8.5 H (1.8-7.7) T/MM3 Lymphocytes # (Manual) 0.5 L (1-4.8) T/MM3 Monocytes # (Manual) 0.5 (0-0.8) T/MM3 Basophils # (Manual) 0.1 (0-0.2) T/MM3 RBC Morph Comment Normal Sample Site R brach Alveolar Air PO2 320.7 (4.0-801.0) mmHg ABG pH 7.352 (7.350-7.450) ABG pCO2 82 H* (34.0-45.0) MMHG ABG pO2 72.6 L (80.0-100.0) MMHG ABG HCO3 45.5 H (22.0-26.0) MEQ/L ABG Total CO2 48.1 H (23.0-27.0) MEQ/L ABG O2 Saturation 92.3 L (95.0-98.0) % ABG Base Excess 15.1 H (-2.0-2.0) MMOL/L A-a Gradient 248.0 (0.0-801.0) mmHg a/A Ratio 22.6 (-1.0-101.0) % O2 Delivery Method Adult vent Mode of Support Assist ctrl ventilat Vent Rate 18 FiO2 60 % Tidal Volume 400 ML PEEP 5 Turbidity < 20 (0-20) Sodium 141 (134-144) MEQ/L Potassium 4.1 (3.6-5) MEQ/L Chloride 85 L (98-107) MEQ/L Carbon Dioxide 47 H* (22-30) MEQ/L Anion Gap 9 (5-15) meq/L BUN 29.0 H (7-17) MG/DL Creatinine 0.5 L (0.7-1.2) mg/dL GFR Calculation 120 BUN/Creatinine Ratio 58 H (6-26) RATIO Glucose 169 H (65-110) MG/DL Calculated Osmolality 281 H (261-280) MOSM/KG Calcium 9.4 (8.4-10.2) MG/DL Magnesium 2.0 (1.6-2.3) MG/DL Total Bilirubin 0.70 (0.20-1.30) MG/DL Icterus Index < 2 (0-7) AST 58 H (14-36) U/L ALT 42 H (1-35) U/L Alkaline Phosphatase 88 (38-126) U/L Troponin I < 0.012 (0-0.12) ng/ml NT-Pro-B Natriuret Pep 1300 H (0-175) pg/mL Total Protein 8.0 (6.3-8.2) g/dL Albumin 4.4 (3.5-5.0) g/dL Globulin 3.6 (2.4-3.6) G/DL Albumin/Globulin Ratio 1.2 (1.1-2.2) RATIO Specimen Hemolysis < 15 (0-25) - Radiology Data Radiology results reviewed: Yes: I reviewed the patient's radiology results. Severe emphysema with large bulla in right lower lobe - EKG Data EKG #1 EKG attestation: Yes: I reviewed and interpreted this EKG. EKG shows normal: sinus rhythm Rate: normal Rhythm: NSR [place]/QRS: normal Interpretation: no acute changes Critical Care Time Critical Care Time: Yes Total Critical Care Time: 82 Attestation: The high probability of a clinically significant, sudden or life threatening deterioration of the respiratory, cardiopulmonary system(s) required my full and direct attention, intervention and personal management. The aggregate critical care time was 47 minutes. This time is in addition to time spent performing reported procedures but includes the following: X Data Review and interpretation X Patient assessment and monitoring of vital signs X Documentation X Medication orders and management Disposition Clinical Impression: Acute exacerbation of chronic obstructive airways disease Disposition: 02 To [facility] Acute Care Condition: Critical - Seen By: physician
[2017-10-01] MEDS: SALINE FLUSH 10ml SYRINGE IVF PRN (13:20)
[2017-10-01] MEDS ORDERED: NS 1,000 ML IV ONE (13:26)
[2017-10-01] MEDS: CEFTRIAXONE 1 G in NS 100 ML IV SCH (13:53)
[2017-10-01] MEDS ORDERED: ONDANSETRON 4 MG/2 ML INJECTION IVP PRN (13:56)
[2017-10-01] MEDS ORDERED: ACETAMINOPHEN 650 MG SUPPOSITORY PR PRN (13:56)
[2017-10-01] MEDS ORDERED: ALBUTEROL/IPRATROPIUM 2.5mg-0.5mg/3ml NEB AEROSOL PRN (13:56)
--- NOTE | 2017-10-01 14:06 | History & Physical Report ---
History of Present Illness Date: 10/01/17 Chief complaint: Dyspnea HPI: Judie is a 76 yr old female with a known history of COPD and emphysema. She chronically uses 5 liters of oxygen by nasal cannula. It is reported that patient had about a 2 day history of increasing dyspnea. Patient was seen this morning by home health who felt she was in severe distress and found her to have saturations in the 60s. EMS was contacted. Patient was transported to the emergency room for further evaluation and treatment. Upon arrival, she continued to be hypoxic in the 70s despite oxygenation. Given the severity of her respiratory distress. Patient was rapid sequence intubated while in the emergency room. All collateral information is obtained from daughter at the bedside as patient is intubated and unable to respond verbally. Daughter reports that patient's chronic lung disease has continued to worsen to the point that she is unable to even do activities of daily living. She also notes that patient will often "skip " Lasix dosing as it is too much work for her to get up and go to the bathroom. She is on continuous 5 liters of oxygen at home. We did discuss in great detail regarding advanced directive wishes. Daughter does note that patient's quality of life has continued to decline and she would not want to be on the ventilator long-term. She is in agreement to keep her intubated in the short time while we attempt to improve patient with medications, ventilation, and rest. At this point, we will keep patient a full code. However, daughter may want to revisit this decision over the next several days. Review of Systems ROS unobtainable: due to endotracheal tube Past Medical History Medical History Updates: COPD. Chronic respiratory failure requiring chronic supplemental oxygen at 5L. CHF, diastolic dysfunction. Anxiety. Uterine prolapse. History of tobacco dependency - quit in 2004. Surgical History: Right hip-2006. Vaginal pessary Family History: Mother, age 78 - osteoarthritis, from sepsis. Father, age 76 - diabetes, CAD, hypertension. Son, alive age 54 - diabetes. Daughter, alive age 50 - healthy. Family History: As Above - Social History Smoking status: Former smoker (quit 2004) Substance use type: does not use Alcohol intake frequency: does not drink Housing: house Current occupational status: retired Social history: Does reside independently at home. Primary care provider Dr. Colunga Pulmonology Dr. Isabelle Medications Home Medications Medication Instructions Recorded Confirmed Type Potassium Chloride [Klor-Con 10] 10 meq PO BID 03/20/17 10/01/17 History Albuterol Neb (0.083%) [Proventil 5 mg AEROSOL Q2H WA PRN each 03/26/17 Rx Neb (0.083%)] Azithromycin [Zithromax] 250 mg PO MoWeFr #15 tab 03/26/17 10/01/17 Rx Famotidine [Pepcid] 20 mg PO BID #60 tab 03/26/17 10/01/17 Rx ALPRAZolam [Xanax] 0.25 mg PO DAILY PRN 10/01/17 10/01/17 History Bumetanide Tab [Bumex 1 mg Tab] 1 mg PO BID 10/01/17 10/01/17 History Allergies Allergy/AdvReac Type Severity Reaction Status Date / Time Sulfa (Sulfonamide Allergy Unknown Verified 03/20/17 11:25 Antibiotics) Exam Vital Signs: Temperature 94.3 F L 10/01/17 12:20 Pulse Rate 96 10/01/17 12:50 Respiratory Rate 18 10/01/17 13:02 Blood Pressure 166/93 H 10/01/17 12:20 Pulse Oximetry 99 10/01/17 13:02 - Constitutional Present: no acute distress (on vent), well nourished, well developed - Routine HEENT Exam Eye: Present: EOMI ENT: Present: mucous membranes moist, dentition normal - Routine Respiratory Exam Present: distant breath sounds, diminished air movement - Routine Cardiovascular Exam Present: RRR, S1, S2. Absent: murmur - Routine Abdominal Exam Present: soft, normoactive bowel sounds, non distended. Absent: tenderness - Routine Extremities Exam Present: edema (trace bilateral lower ext) - Routine Skin Exam Present: intact, dry, warm - Routine Neurological Exam Present: altered mental status Intubated - Routine Psychiatric Exam Present: unable to assess Results - Labs CBC & Chem 7: 10/01/17 12:06 10/01/17 12:06 Assessment and Plan (1) Acute and chronic respiratory failure with hypercapnia Current visit: No Status: Acute Assessment and Plan: Impression Acute on chronic respiratory failure with hypercapnia Severe respiratory distress - On ventilator Chronic diastolic heart failure Elevated LFTs History of tobacco use-quit 2004 Anxiety Hx uterine prolapse Plan Admit patient to CCU as a inpatient under the care of Dr Pretty Currently on ventilator due to severity of respiratory distress. Propofol drip for sedation. Consultation placed with Dr. Walton for his pulmonary expertise and guidance Will start patient on IV Rocephin and azithromycin for empiric antimicrobial pulmonary coverage. It is reported that patient does take Zithromax 3 times a week for pulmonary prophylaxis. Schedule DuoNeb neb and Pulmicort breathing treatments. Will obtain sputum culture via suctioning. Normal saline at 100 mL per hour for gentle hydration, monitor for evidence of fluid overload Patient does chronically take Bumex 1 milligram twice a day and may require diuresing. Solu-Medrol 125 milligrams IV every etc. hours for pulmonary inflammation. Given history of COPD. Ativan as needed for anxiety. Patient does use Xanax at home. Daughter notes she may be using more and more given the severity of her respiratory effort. SCDs for DVT prophylaxis Recheck CBC and CMP tomorrow to follow blood counts, renal function, electrolytes and liver function. Full code is ordered as per Daughter at time of admission Will discuss further orders and plan of care with attending, Dr Pretty At time of discharge medical care will return to PCP, Dr Colunga DVT Prophylaxis: SCD's Resuscitation Status: Full Code - Time spent with patient Time with patient PN: 50 minutes - Physician Narrative Physician: Delano Pretty MD Narrative: Date: 10/01/17 Time: 1540 I have independently interviewed and examined pt. Chart reviewed. Case discussed with ED physician and my DIVER ASSISTANT. Care plan developed with my supervision ; agree with above. Presents to ED secondary to increasing SOA. Chronic on home O2, but not using home Vent secondary to it causing increased anxiety. Oral drive decreased. No nausea or diarrhea. Presents to ED in severe respiratory distress with minimal air movement. Given Solu-Medrol en route. Intubated in ED secondary to severe distress. Admitted to CCU for treatment of her acute on chronic respiratory failure. Lungs: Ventilated - decreased air movement, but moving air in all quadrants. CV : regular AB: soft nt EXT: +2 BLE Plan: Inpatient admission to CCU. Intubated in ED and started on Mechanical ventilation for respiratory support. Will start Rocephin and azithromycin for pulmonary coverage. Solu-Medrol 125mg IV q6 hours to decrease pulmonary inflammation and reactivity-will monitor blood sugars and have ISS secondary to anticipated elevation of sugars with steroids. Will consult with Dr Walton for vent management. IVF for hydration, monitoring for overload -- suspect right heart failure due to chronic emphysema. Sedation due to vent. Check UA. Monitor lab. Full code. Care to return to Dr Colunga at time of discharge from [facility] [place]. Hospital Course Summary Disclaimer: The visit summary below is not to be considered part of the above Progress Note. Hospital Course: Impression Acute on chronic respiratory failure with hypercapnia Severe respiratory distress- On ventilator Chronic diastolic heart failure Elevated LFTs History of tobacco use-quit 2004 Anxiety Hx uterine prolapse Plan Admit patient to CCU as a inpatient under the care of Dr Pretty. Currently on ventilator due to severity of respiratory distress. Propofol drip for sedation. Consultation placed with Dr. Walton for his pulmonary expertise and guidance. Will start patient on IV Rocephin and azithromycin for empiric antimicrobial pulmonary coverage. It is reported that patient does take Zithromax 3 times a week for pulmonary prophylaxis. Schedule DuoNeb neb and Pulmicort breathing treatments. Will obtain sputum culture via suctioning. Normal saline at 100 mL per hour for gentle hydration, monitor for evidence of fluid overload. Patient does chronically take Bumex 1 milligram twice a day and may require diuresing. Solu-Medrol 125 milligrams IV every etc. hours for pulmonary inflammation. Given history of COPD. Ativan as needed for anxiety. Patient does use Xanax at home. Daughter notes she may be using more and more given the severity of her respiratory effort. SCDs for DVT prophylaxis Recheck CBC and CMP tomorrow to follow blood counts, renal function, electrolytes and liver function. Full code is ordered as per Daughter at time of admission At time of discharge medical care will return to PCP, Dr Colunga
--- NOTE | 2017-10-01 14:16 | XRay Report ---
Indication: post intubation PROCEDURE: XR chest 1V: Encounter: Initial Comparison: None. Findings: The lungs are hyperinflated with flattening and lobulation of the diaphragms. There is a probable large emphysematous bulla in the inferior lateral right lung base although a loculated pneumothorax cannot completely be excluded. There does appear to be either a mass or some atelectatic or compressed lung in the inferomedial right lung base. Heart size is normal. There is an ET tube in place with its tip at the level of the aortic arch, 4.5 cm above the level of the david. Impression: Severe emphysema with probable right basilar emphysematous blebs/bulla with some compression or atelectasis of the inferomedial right lung base. Loculated pneumothorax could appear similar. Consider CT of the chest with IV contrast for further evaluation. .
[2017-10-01] MEDS: NS 1,000 ML IV SCH ×2 (14:32→18:37)
[2017-10-01] MEDS: PROPOFOL 1,000 MG/100 ML VIAL IV PRN (14:47)
[2017-10-01] MEDS: ALBUTEROL/IPRATROPIUM 2.5mg-0.5mg/3ml NEB AEROSOL SCH ×2 (15:14→20:48)
[2017-10-01] MEDS: METHYLPREDNISOLONE SOD SUCC 125mg/2ml INJECTION IVP SCH ×2 (16:32→22:30)
[2017-10-01] MEDS: AZITHROMYCIN IV 500 MG in NS 250ml 250 ML IV SCH (17:51)
[2017-10-01] MEDS: BUDESONIDE INH.SOLN 0.5mg/2ml NEB AEROSOL SCH (20:48)
[2017-10-02] MEDS: NS 1,000 ML IV SCH ×2 (01:00→11:47)
[2017-10-02] MEDS: ALBUTEROL/IPRATROPIUM 2.5mg-0.5mg/3ml NEB AEROSOL SCH ×3 (03:20→19:42)
[2017-10-02] MEDS: METHYLPREDNISOLONE SOD SUCC 125mg/2ml INJECTION IVP SCH ×5 (03:30→20:57)
[2017-10-02] MEDS: PROPOFOL 1,000 MG/100 ML VIAL IV PRN (06:49)
--- NOTE | 2017-10-02 09:23 | XRay Report ---
Indication: F/U ET tube PROCEDURE: XR chest 1V: Encounter: Initial Comparison: October 01, 2017 Findings: Endotracheal tube remains in stable position. Left PICC line is new with the tip projecting over the lower SVC. Nasogastric tube is also new with the proximal side port at the region of the GE junction. There is a moderate sized right pneumothorax, approximately 30%. This appears grossly stable from the prior study. There is evidence of right middle lobe and partial right lower lobe collapse. Mild interstitial prominence in the left lung with Lesly B lines noted in the bases. Small left pleural effusion. Heart size and mediastinal contours are stable. No midline shift. Impression: 1. Moderate right pneumothorax. 2. Tubes and lines as above. 3. Moderate pulmonary edema. The pneumothorax was discussed with Dr. Pretty at 0918 on October 02, 2017. .
--- NOTE | 2017-10-02 09:51 | Pulmonology Consult Note ---
History of Present Illness Consult date: 10/02/17 Requesting physician: Delano Pretty Reason for consult: COPD Chief complaint: shortness of breath History of present illness: Judie is a 76 yr old female known to me from pulmonary clinic. She has very severe COPD, FEV1 15% predicted, GOLD stage D on continuous O2 at home at 5 lpm. She has a 2 day history of increasing dyspnea. Patient was seen 10/01/17 by home health who felt she was in severe distress and found her to have saturations in the 60s. EMS was contacted. Patient was transported to the emergency room for further evaluation and treatment. Upon arrival, she continued to be hypoxic in the 70s despite oxygenation. Given the severity of her respiratory distress. Patient was rapid sequence intubated while in the emergency room. All collateral information is obtained from daughter at the bedside as patient is intubated and unable to respond verbally. Daughter reports that patient's chronic lung disease has continued to worsen to the point that she is unable to even do activities of daily living. She also notes that patient will often "skip " Lasix dosing as it is too much work for her to get up and go to the bathroom. She is on continuous 5 liters of oxygen at home. We did discuss in great detail regarding advanced directive wishes. Daughter does note that patient's quality of life has continued to decline and she would not want to be on the ventilator long-term. She is in agreement to keep her intubated in the short time while we attempt to improve patient with medications, ventilation, and rest. At this point, we will keep patient a full code. However, daughter may want to revisit this decision over the next several days. Review of Systems ROS unobtainable: due to endotracheal tube Past Medical History Medical History Updates: COPD. Chronic respiratory failure requiring chronic supplemental oxygen at 5L. CHF, diastolic dysfunction. Anxiety. Uterine prolapse. History of tobacco dependency - quit in 2004. Surgical History: Right hip-2006. Vaginal pessary Family History: Mother, age 78 - osteoarthritis, from sepsis. Father, age 76 - diabetes, CAD, hypertension. Son, alive age 54 - diabetes. Daughter, alive age 50 - healthy. Family History: As Above - Social History Smoking status: Former smoker (quit 2004) Substance use type: does not use Alcohol intake frequency: does not drink Housing: house Current occupational status: retired Social history: Does reside independently at home. [facility] Patient Stated Medical History Chronic Obstructive Pulmonary Yes Disease (COPD) Hx Renal Disease No Medical History Updates: COPD. Chronic respiratory failure requiring chronic supplemental oxygen at 5L. CHF, diastolic dysfunction. Anxiety. Uterine prolapse. History of tobacco dependency - quit in 2004. Surgical History: Right hip-2006. Vaginal pessary - Social History Smoking status: Former smoker (quit 2004) Substance use type: does not use Alcohol intake frequency: does not drink Housing: house Household members: none Current occupational status: retired Does patient use chewing tobacco?: No Current residence: Apartment/Private Home Medications Home Medications Medication Instructions Recorded Confirmed Type Potassium Chloride [Klor-Con 10] 10 meq PO BID 03/20/17 10/01/17 History Albuterol Neb (0.083%) [Proventil 5 mg AEROSOL Q2H WA PRN each 03/26/17 Rx Neb (0.083%)] Azithromycin [Zithromax] 250 mg PO MoWeFr #15 tab 03/26/17 10/01/17 Rx Famotidine [Pepcid] 20 mg PO BID #60 tab 03/26/17 10/01/17 Rx ALPRAZolam [Xanax] 0.25 mg PO DAILY PRN 10/01/17 10/01/17 History Bumetanide Tab [Bumex 1 mg Tab] 1 mg PO BID 10/01/17 10/01/17 History Allergies Allergy/AdvReac Type Severity Reaction Status Date / Time Sulfa (Sulfonamide Allergy Unknown Verified 03/20/17 11:25 Antibiotics) Exam Vital signs: Temperature 99.1 F 10/01/17 20:15 Pulse Rate 102 H 10/02/17 08:00 Respiratory Rate 18 10/02/17 06:43 Blood Pressure 140/86 H 10/02/17 06:15 Pulse Oximetry 94 10/02/17 06:43 - Constitutional mild distress - Routine HEENT Exam Head: Present: normocephalic, atraumatic Eye: Present: EOMI, PERRL ENT: Present: mucous membranes moist - Routine Neck Exam Present: supple - Routine Respiratory Exam Present: accessory muscle use, prolonged expiratory phase, wheezes - Routine Cardiovascular Exam Present: RRR - Routine Abdominal Exam Present: soft. Absent: distended - Routine Extremities Exam Present: edema. Absent: cyanosis, clubbing - Routine Skin Exam Present: intact. Absent: rash - Routine Neurological Exam Present: alert, moving all extremities Results - Laboratory Findings CBC and BMP: 10/05/17 04:23 10/07/17 03:52 ABG ABG pH 7.536 (7.350-7.450) H 10/01/17 16:12 ABG pCO2 42 MMHG (34.0-45.0) 10/01/17 16:12 ABG pO2 65.4 MMHG (80.0-100.0) L 10/01/17 16:12 ABG O2 Saturation 94.6 % (95.0-98.0) L 10/01/17 16:12 Abnormal lab findings: Abnormal Labs 10/01/17 10/01/17 10/02/17 15:32 16:12 04:47 MCHC 30.4 L Neutrophils % (Manual) 92.0 H Lymphocytes % (Manual) 7.0 L Lymphocytes # (Manual) 0.4 L ABG pH 7.536 H ABG pO2 65.4 L ABG HCO3 35.6 H ABG Total CO2 36.9 H ABG O2 Saturation 94.6 L ABG Base Excess 11.7 H Potassium Chloride Carbon Dioxide BUN Creatinine BUN/Creatinine Ratio Glucose Urine Protein Trace A Urine Occult Blood 2+ A Urine Bacteria 1+ H 10/02/17 04:47 MCHC Neutrophils % (Manual) Lymphocytes % (Manual) Lymphocytes # (Manual) ABG pH ABG pO2 ABG HCO3 ABG Total CO2 ABG O2 Saturation ABG Base Excess Potassium 3.4 L Chloride 95 L D Carbon Dioxide 35 H BUN 31.0 H Creatinine 0.5 L BUN/Creatinine Ratio 62 H Glucose 126 H Urine Protein Urine Occult Blood Urine Bacteria - Diagnostic Findings Chest x-ray: report reviewed, image reviewed Assessment and Plan (1) Acute exacerbation of chronic obstructive airways disease Status: Acute Assessment and plan: slowly improving. Still requiring NIPPV quite a bit. Back on solumedrol 62.5 mg IV q6 hours O2 to keep sat >90% Neb albuterol/iprat q4h, budesonide BID Current Visit: Yes (2) Acute and chronic respiratory failure with hypercapnia Status: Acute Assessment and plan: BIPAP at night and prn. would likely benefit from home [id number]. Will need to recheck and ABG prior to dismissal Current Visit: No - Time Spent With Patient Total time spent is greater than 50% in coordination of care (as documented) at patient's floor/unit and/or counseling patient: 25 - 35 minutes
[2017-10-02] MEDS: BUDESONIDE INH.SOLN 0.5mg/2ml NEB AEROSOL SCH ×2 (09:58→19:42)
--- NOTE | 2017-10-02 10:45 | XRay Report ---
Indication: pneumothorax PROCEDURE: XR chest 1V: Encounter: Initial Comparison: October 02, 2017 at 0608 Findings: Interval placement of a right chest tube which projects medially at the right apex. Evacuation of the prior right pneumothorax with reexpansion of the right middle and right lower lobes. No visible or clinically significant pneumothorax seen currently. There is residual edema in the left lower lung field. The left PICC line, endotracheal and nasogastric tubes are stable in position. Impression: New right chest tube with evacuation of the right pneumothorax. .
[2017-10-02] MEDS: PANTOPRAZOLE 40 MG INJECTION IVP SCH (11:12)
[2017-10-02] MEDS: CEFTRIAXONE 1 G in NS 100 ML IV SCH (13:07)
[2017-10-02] MEDS: AZITHROMYCIN IV 500 MG in NS 250ml 250 ML IV SCH (14:29)
[2017-10-02] MEDS ORDERED: BISACODYL 10 MG SUPPOSITORY RECTALLY PRN (14:37)
[2017-10-02] MEDS ORDERED: POLYETHYL GLYCOL 3350 17gm PACKET PO PRN (14:38)
--- NOTE | 2017-10-02 14:49 | Progress Note ---
- Date 10/02/17 Subjective: F/U: Acute on chronic respiratory failure. Doing little better. Dr Walton able to extubate patient this afternoon-placed on BiPAP for support. Does feel SOA and anxious due to SOA, but glad to be extubated and tolerating BiPAP well. No nausea or ab pain. Does feel hungry. Feel tired and weak. Objective Vital signs: Temperature 98.1 F 10/02/17 12:14 Pulse Rate 104 H 10/02/17 12:00 Respiratory Rate 18 10/02/17 10:00 Blood Pressure 119/51 10/02/17 10:00 Pulse Oximetry 94 10/02/17 10:00 Height/Weight/BMI: Height 1.55 m Weight 48.5 kg Body Mass Index 19.9 - Constitutional Present: well nourished, well developed, average body habitus, cooperative - Routine HEENT Exam Head: Present: normocephalic, atraumatic Eye: Present: EOMI, PERRL ENT: Present: mucous membranes moist - Routine Respiratory Exam Present: decreased breath sounds, prolonged expiratory phase, respiratory distress, distant breath sounds, diminished air movement - Routine Cardiovascular Exam Present: tachycardia (Regular) - Routine Abdominal Exam Present: soft, normoactive bowel sounds, non distended, non tender - Routine Extremities Exam Present: edema (+2 edema of upper and lower ext), pulses intact. Absent: cyanosis, clubbing - Routine Musculoskeletal Exam Musculoskeletal: Present: no clubbing or cyanosis - Routine Skin Exam Present: dry, warm - Routine Neurological Exam Present: alert, oriented X3, moving all extremities, vision grossly intact, hearing grossly intact, normal speech - Routine Psychiatric Exam Present: normal affect, cooperative, anxious (Mild anxiety secondary to respiratory) Results - Labs CBC & Chem 7: 10/02/17 04:47 10/02/17 04:47 - ABG Interpretation ABG results: 10/01/17 16:12 ABG pH 7.536 H ABG pCO2 42 ABG pO2 65.4 L ABG HCO3 35.6 H ABG Total CO2 36.9 H ABG O2 Saturation 94.6 L ABG Base Excess 11.7 H Assessment and Plan (1) Acute and chronic respiratory failure with hypercapnia Current visit: No Status: Acute Assessment and Plan: Impression Acute on chronic respiratory failure with hypercapnia Right pneumothorax (POA) - s/p chest tube placement. Severe respiratory distress - intubated 10/01, extubated 10/02 Chronic diastolic heart failure Elevated LFTs (POA) - improved History of tobacco use-quit 2004 Anxiety Hx uterine prolapse Plan Chest tube placed by Dr Walton for decompression of pneumothorax. Able to be extubated and placed on BiPAP this afternoon. Will continue Rocephin and azithromycin for antimicrobial coverage. Decreased Solu-Medrol to 62.5mg IV q 6 hr; continue breathing treatments. Can discontinue IVF and advance diet to regular. Start potassium 20mEg BIDWM as potassium low (home dose 10 Jun). Will restart home Bumex tomorrow. Recheck CXR, BMP, and CBC along with magnesium in am. Continue CCU care and monitoring, possible transfer to floor tomorrow if continues to do well. Case discussed with CM, Dr Walton, and patient's family. Time spent with patient care 35 minutes. DVT Prophylaxis: SCD's Resuscitation Status: Full Code - Time spent with patient Time with patient PN: 25 minutes - Physician Narrative Physician: Delano Pretty MD Narrative: Date: 10/02/17 Time: 1440 Hospital Course Summary Disclaimer: The visit summary below is not to be considered part of the above Progress Note. Hospital Course: 10/01/17 Admission Admit patient to CCU as a inpatient under the care of Dr Pretty. Currently on ventilator due to severity of respiratory distress. Propofol drip for sedation. Consultation placed with Dr. Walton for his pulmonary expertise and guidance. Will start patient on IV Rocephin and azithromycin for empiric antimicrobial pulmonary coverage. It is reported that patient does take Zithromax 3 times a week for pulmonary prophylaxis. Schedule DuoNeb neb and Pulmicort breathing treatments. Will obtain sputum culture via suctioning. Normal saline at 100 mL per hour for gentle hydration, monitor for evidence of fluid overload. Patient does chronically take Bumex 1 milligram twice a day and may require diuresing. Solu-Medrol 125 milligrams IV every etc. hours for pulmonary inflammation. Given history of COPD. Ativan as needed for anxiety. Patient does use Xanax at home. Daughter notes she may be using more and more given the severity of her respiratory effort. SCDs for DVT prophylaxis Recheck CBC and CMP tomorrow to follow blood counts, renal function, electrolytes and liver function. Full code is ordered as per Daughter at time of admission At time of discharge medical care will return to PCP, Dr Colunga 10/02/17 Chest tube placed by Dr Walton for decompression of pneumothorax. Able to be extubated and placed on BiPAP this afternoon. Will continue Rocephin and azithromycin for antimicrobial coverage. Decreased Solu-Medrol to 62.5mg IV q 6 hr; continue breathing treatments. Can discontinue IVF and advance diet to regular. Start potassium 20mEg BIDWM as potassium low (home dose 10 Jun). Will restart home Bumex tomorrow. Recheck CXR, BMP, and CBC along with magnesium in am. Continue CCU care and monitoring, possible transfer to floor tomorrow if continues to do well.
[2017-10-02] MEDS ORDERED: FALL RISK - PHARMACY CONSULT MC ONE (15:36)
[2017-10-02 19:46] VITALS: BMI 20.2
[2017-10-02] MEDS: SALINE FLUSH 10ml SYRINGE IVF PRN ×2 (20:58→21:03)
[2017-10-03] MEDS: METHYLPREDNISOLONE SOD SUCC 125mg/2ml INJECTION IVP SCH ×4 (03:40→22:08)
[2017-10-03] MEDS: BUDESONIDE INH.SOLN 0.5mg/2ml NEB AEROSOL SCH ×2 (07:05→20:42)
[2017-10-03] MEDS: ALBUTEROL/IPRATROPIUM 2.5mg-0.5mg/3ml NEB AEROSOL SCH ×4 (07:05→20:42)
--- NOTE | 2017-10-03 08:13 | XRay Report ---
Indication: F/U ET tube, pneumothorax PROCEDURE: XR chest 1V: Encounter: Initial Comparison: October 02, 2017 at 1033 Findings: Right chest tube is stable in position. Endotracheal tube has been removed. Nasogastric tube has been removed. Left PICC line remains in stable position. Emphysema is redemonstrated. Small pleural effusions. No visible pneumothorax. No new or worsening airspace disease. Heart size and mediastinal contours are unchanged. Impression: Interval extubation. No visible pneumothorax. .
[2017-10-03] MEDS: BUMETANIDE 1 MG TABLET PO SCH ×2 (09:05→13:58)
[2017-10-03] MEDS: SALINE FLUSH 10ml SYRINGE IVF PRN ×3 (09:10→22:07)
--- NOTE | 2017-10-03 09:15 | Pulmonology Progress Note ---
Subjective Principal diagnosis: COPD exacerbation Interval history: Pt in bed, states she has normal SOB today with cough and minimal sputum. C/o CT site soreness and tolerated the bipap last night. Exam Vital signs: Temperature 98.5 F 10/02/17 16:00 Pulse Rate 82 10/03/17 06:00 Respiratory Rate 29 H 10/03/17 07:05 Blood Pressure 159/86 H 10/03/17 06:00 Pulse Oximetry 94 10/03/17 07:05 Inpatient Medications: Generic Name Dose Route Start Last Admin Trade Name Freq PRN Reason Stop Dose Admin Acetaminophen 650 mg 10/01/17 13:56 Tylenol Supp ID Q5H PRN Pain Albuterol/Ipratropium 3 ml 10/01/17 15:00 10/03/17 07:05 Duoneb AEROSOL 3 ml Q6HR TESSIE Administration Albuterol/Ipratropium 3 ml 10/01/17 13:56 Duoneb AEROSOL Q4HR PRN Shortness of air Bisacodyl 10 mg 10/02/17 14:37 Dulcolax RECTALLY DAILY PRN Constipation Budesonide 0.5 mg 10/01/17 19:00 10/03/17 07:05 Pulmicort Inhalation AEROSOL 0.5 mg RTBID TESSIE Administration Bumetanide 1 mg 10/03/17 09:00 10/03/17 09:05 Bumex 1 Mg Tab PO 1 mg [id number] TESSIE Administration Ceftriaxone Sodium 1 g/ Sodium 100 mls @ 200 mls/hr 10/01/17 13:45 10/02/17 14:29 Chloride IV Infused Q24H TESSIE Infusion Azithromycin 500 mg/ Sodium 250 mls @ 167 mls/hr 10/01/17 13:56 10/02/17 16: 32 Chloride IV Infused Q24H TESSIE Infusion Insulin Human Regular 2 - 8 unit 10/01/17 15:08 Novolin R SQ SS PRN Hyperglycemia Protocol Lorazepam 1 mg 10/02/17 14:40 Ativan Inj IVP Q4H PRN Agitation/Air hunger/Pain Magnesium Hydroxide 30 ml 10/02/17 14:37 Mom PO DAILY PRN Constipation Methylprednisolone Sodium Succinate 62.5 mg 10/02/17 15:00 10/03/17 03:40 Solu-Medrol IVP 62.5 mg Q6HR TESSIE Administration Ondansetron HCl 4 mg 10/01/17 13:56 Zofran IVP Q6H PRN Nausea Pantoprazole Sodium 40 mg 10/02/17 10:45 10/02/17 11:12 Protonix Iv IVP 40 mg DAILY TESSIE Administration Polyethylene Glycol 17 gm 10/02/17 14:38 Miralax PO DAILY PRN Constipation Potassium Chloride 20 meq 10/02/17 17:30 10/03/17 09:06 Micro-K 10 Meq Capsule PO 20 meq BIDWM TESSIE Administration Sodium Chloride 10 - 80 ml 10/01/17 12:46 10/02/17 21:03 Iv Flush IVF 20 ml PRN PRN Administration Flushing Discontinued Medications Generic Name Dose Route Start Last Admin Trade Name Freq PRN Reason Stop Dose Admin Albuterol/Ipratropium 3 ml 10/01/17 12:46 10/01/17 13:02 Duoneb IH 10/01/17 12:47 3 ml ONCE ONE Administration Sodium Chloride 1,000 mls @ 999.9 mls/hr 10/01/17 13:26 10/01/17 23:05 Normal Saline IV 10/01/17 14:25 Not Given .Q1H ONE Sodium Chloride 1,000 mls @ 100 mls/hr 10/01/17 13:56 10/02/17 17:00 Normal Saline IV 100 mls/hr .Q10H TESSIE Infusion Propofol 1,000 mg in 100 mls @ 1.569 mls/hr 10/01/17 14:34 10/02/17 14:00 Diprivan IV 0 mcg/kg/min .Q24H PRN 0 mls/hr Protocol Infusion 5 MCG/KG/MIN Sodium Chloride 500 mls @ 999.9 mls/hr 10/01/17 18:30 10/01/17 18:35 Normal Saline IV 10/01/17 18:59 Not Given .Q30M TESSIE Lorazepam 0.5 mg 10/01/17 13:56 10/02/17 21:03 Ativan Inj IVP 0.5 mg Q4H PRN Administration Anxiety/Air hunger/Agitation Methylprednisolone Sodium Succinate 125 mg 10/01/17 15:00 10/02/17 14:28 Solu-Medrol IVP 125 mg Q6HR TESSIE Administration Midazolam HCl 5 mg 10/01/17 12:48 10/01/17 13:17 Versed IVP 10/01/17 12:49 5 mg O ONE Administration Midazolam HCl 5 mg 10/01/17 13:14 10/01/17 13:21 Versed IVP 10/01/17 13:15 5 mg O ONE Administration Pharmacy Consult 1 each 10/02/17 15:36 Pharmacy Consult - Fall Risk 10/02/17 15:37 ONE TIME ONE Succinylcholine Chloride 100 mg 10/01/17 12:49 10/01/17 13:23 Quelicin IVP 10/01/17 12:50 100 mg O ONE Administration - Constitutional mild distress, average body habitus, cooperative - Routine HEENT Exam Head: Present: normocephalic, atraumatic Eye: Present: EOMI, PERRL ENT: Present: mucous membranes moist - Routine Neck Exam Present: supple, full ROM, trachea midline - Routine Respiratory Exam Present: decreased breath sounds, prolonged expiratory phase. Absent: accessory muscle use, patient mechanically ventilated - Routine Cardiovascular Exam Present: RRR, S1, S2, no murmur - Routine Abdominal Exam Present: soft, normoactive bowel sounds - Routine Extremities Exam Present: edema, non tender, full ROM. Absent: cyanosis - Routine Back/Spine/Pelvis Exam Back/Spine: Present: full ROM - Routine Skin Exam Present: intact, dry - Routine Neurological Exam Present: alert, oriented X3, CN II-XII intact, moving all extremities - Routine Psychiatric Exam Present: normal affect, normal thought process, good judgment - Urinary Catheter Management Urethral Cath placed during this visit: yes Urethral indwelling: Yes Reason for continuing: Prolonged Immobilization Insertion date: 10/01/17 Results - Laboratory Findings Laboratory: Laboratory Results - last 48 hr 10/01/17 10/01/17 10/01/17 15:23 15:32 16:12 WBC RBC Hgb Hct MCV MCH MCHC RDW Std Deviation Plt Count MPV Immature Gran % (Auto) Neut % (Auto) Lymph % (Auto) [place] % (Auto) Eos % (Auto) Baso % (Auto) Neut # (Auto) Lymph # (Auto) [place] # (Auto) Eos # (Auto) Baso # (Auto) Abs Immat Gran (auto) Neutrophils % (Manual) Band Neutrophils % Lymphocytes % (Manual) Monocytes % (Manual) Neutrophils # (Manual) Band Neutrophils # Lymphocytes # (Manual) Monocytes # (Manual) RBC Morph Comment Sample Site R brach Alveolar Air PO2 362.2 ABG pH 7.536 H ABG pCO2 42 ABG pO2 65.4 L ABG HCO3 35.6 H ABG Total CO2 36.9 H ABG O2 Saturation 94.6 L ABG Base Excess 11.7 H A-a Gradient 296.7 a/A Ratio 18.1 O2 Delivery Method Adult vent Mode of Support Assist ctrl ventilat Vent Rate 18 FiO2 60 Tidal Volume 450 PEEP 5 Turbidity Sodium Potassium Chloride Carbon Dioxide Anion Gap BUN Creatinine GFR Calculation BUN/Creatinine Ratio Glucose Glucometer 109 Calculated Osmolality Calcium Magnesium Total Bilirubin Icterus Index AST ALT Alkaline Phosphatase Total Protein Albumin Globulin Albumin/Globulin Ratio Specimen Hemolysis Ur Collection Type Urine, cath chakraborty Urine Color Yellow Urine Clarity Clear Urine pH 5.5 Ur Specific [place] 1.025 Urine Protein Trace A Urine Glucose (UA) Negative Urine Ketones Negative Urine Occult Blood 2+ A Urine Nitrate Negative Urine Bilirubin Negative Urine Urobilinogen 0.2 Ur Leukocyte Esterase Negative Urine RBC None seen Urine WBC 1-3 Ur Squamous Epith Cells 0-5 Urine Bacteria 1+ H Ur Culture Indicated? Cult not indicated 10/01/17 10/02/17 10/02/17 20:54 04:47 04:47 WBC 5.7 RBC 4.42 Hgb 12.0 D Hct 39.5 D MCV 89.4 MCH 27.1 MCHC 30.4 L RDW Std Deviation 48.1 Plt Count 175 MPV 12.4 Immature Gran % (Auto) Not performed Neut % (Auto) Not performed Lymph % (Auto) Not performed Louis[place] % (Auto) Not performed Eos % (Auto) Not performed Baso % (Auto) Not performed Neut # (Auto) Not performed Lymph # (Auto) Not performed [place] # (Auto) Not performed Eos # (Auto) Not performed Baso # (Auto) Not performed Abs Immat Gran (auto) Not performed Neutrophils % (Manual) 92.0 H Band Neutrophils % Lymphocytes % (Manual) 7.0 L Monocytes % (Manual) 1.0 Neutrophils # (Manual) 5.2 Band Neutrophils # Lymphocytes # (Manual) 0.4 L Monocytes # (Manual) 0.1 RBC Morph Comment Normal Sample Site Alveolar Air PO2 ABG pH ABG pCO2 ABG pO2 ABG HCO3 ABG Total CO2 ABG O2 Saturation ABG Base Excess A-a Gradient a/A Ratio O2 Delivery Method Mode of Support Vent Rate FiO2 Tidal Volume PEEP Turbidity < 20 Sodium 141 Potassium 3.4 L Chloride 95 L D Carbon Dioxide 35 H Anion Gap 11 BUN 31.0 H Creatinine 0.5 L GFR Calculation 120 BUN/Creatinine Ratio 62 H Glucose 126 H Glucometer 124 Calculated Osmolality 280 Calcium 8.9 Magnesium Total Bilirubin 0.90 Icterus Index < 2 AST 34 ALT 30 Alkaline Phosphatase 67 Total Protein 6.4 Albumin 3.5 Globulin 2.9 Albumin/Globulin Ratio 1.2 Specimen Hemolysis < 15 Ur Collection Type Urine Color Urine Clarity Urine pH Ur Specific [place] Urine Protein Urine Glucose (UA) Urine Ketones Urine Occult Blood Urine Nitrate Urine Bilirubin Urine Urobilinogen Ur Leukocyte Esterase Urine RBC Urine WBC Ur Squamous Epith Cells Urine Bacteria Ur Culture Indicated? 10/02/17 10/02/17 10/02/17 10:38 15:17 21:01 WBC RBC Hgb Hct MCV MCH MCHC RDW Std Deviation Plt Count MPV Immature Gran % (Auto) Neut % (Auto) Lymph % (Auto) [place] % (Auto) Eos % (Auto) Baso % (Auto) Neut # (Auto) Lymph # (Auto) [place] # (Auto) Eos # (Auto) Baso # (Auto) Abs Immat Gran (auto) Neutrophils % (Manual) Band Neutrophils % Lymphocytes % (Manual) Monocytes % (Manual) Neutrophils # (Manual) Band Neutrophils # Lymphocytes # (Manual) Monocytes # (Manual) RBC Morph Comment Sample Site Alveolar Air PO2 ABG pH ABG pCO2 ABG pO2 ABG HCO3 ABG Total CO2 ABG O2 Saturation ABG Base Excess A-a Gradient a/A Ratio O2 Delivery Method Mode of Support Vent Rate FiO2 Tidal Volume PEEP Turbidity Sodium Potassium Chloride Carbon Dioxide Anion Gap BUN Creatinine GFR Calculation BUN/Creatinine Ratio Glucose Glucometer 120 121 151 Calculated Osmolality Calcium Magnesium Total Bilirubin Icterus Index AST ALT Alkaline Phosphatase Total Protein Albumin Globulin Albumin/Globulin Ratio Specimen Hemolysis Ur Collection Type Urine Color Urine Clarity Urine pH Ur Specific [place] Urine Protein Urine Glucose (UA) Urine Ketones Urine Occult Blood Urine Nitrate Urine Bilirubin Urine Urobilinogen Ur Leukocyte Esterase Urine RBC Urine WBC Ur Squamous Epith Cells Urine Bacteria Ur Culture Indicated? 10/03/17 10/03/17 04:22 04:22 WBC 10.8 D RBC 4.29 Hgb 11.7 L Hct 37.9 MCV 88.3 MCH 27.3 MCHC 30.9 L RDW Std Deviation 50.3 H Plt Count 164 MPV 12.4 Immature Gran % (Auto) Not performed Neut % (Auto) Not performed Lymph % (Auto) Not performed [place] % (Auto) Not performed Eos % (Auto) Not performed Baso % (Auto) Not performed Neut # (Auto) Not performed Lymph # (Auto) Not performed [place] # (Auto) Not performed Eos # (Auto) Not performed Baso # (Auto) Not performed Abs Immat Gran (auto) Not performed Neutrophils % (Manual) 92.0 H Band Neutrophils % 1.0 Lymphocytes % (Manual) 2.0 L Monocytes % (Manual) 5.0 Neutrophils # (Manual) 9.9 H Band Neutrophils # 0.1 Lymphocytes # (Manual) 0.2 L Monocytes # (Manual) 0.5 RBC Morph Comment Normal Sample Site Alveolar Air PO2 ABG pH ABG pCO2 ABG pO2 ABG HCO3 ABG Total CO2 ABG O2 Saturation ABG Base Excess A-a Gradient a/A Ratio O2 Delivery Method Mode of Support Vent Rate FiO2 Tidal Volume PEEP Turbidity < 20 Sodium 142 Potassium 3.9 Chloride 98 Carbon Dioxide 37 H Anion Gap 7 BUN 31.0 H Creatinine 0.6 L GFR Calculation 97 BUN/Creatinine Ratio 52 H Glucose 129 H Glucometer Calculated Osmolality 282 H Calcium 8.6 Magnesium 2.1 Total Bilirubin Icterus Index < 2 AST ALT Alkaline Phosphatase Total Protein Albumin Globulin Albumin/Globulin Ratio Specimen Hemolysis < 15 Ur Collection Type Urine Color Urine Clarity Urine pH Ur Specific [place] Urine Protein Urine Glucose (UA) Urine Ketones Urine Occult Blood Urine Nitrate Urine Bilirubin Urine Urobilinogen Ur Leukocyte Esterase Urine RBC Urine WBC Ur Squamous Epith Cells Urine Bacteria Ur Culture Indicated? - Diagnostic Findings Chest x-ray: image reviewed (CT in place, no PTX, overall stable) Assessment and Plan - Assessment and Plan Acute on Chronic Hypoxic Respiratory Failure COPD exacerbation Right Pneumothorax Chronic Diastolic Heart Failure Plan: Pt currently on 6L per NC, sats 88% and just turned to 6L, O2 to keep sats 90-95 %. Bipap qHs and prn f15, 15/5, chacho all day yesterday and last noc. Continue a/ a but change to q4hr, pulmicort BID, and solumedrol 60mg q6hr. On abx with rocephin and azithro for exacerbation, sputum showing GNR scant growth, follow cx. R CT in place, CXR without PTC and no air leak noted. Would continue today as she is on and off the bipap throughout the day, possibly change to water seal tomorrow am with a CXR 4hrs afterwards. - Time Spent With Patient Total time spent is greater than 50% in coordination of care (as documented) at patient's floor/unit and/or counseling patient: less than 15 minutes
[2017-10-03] MEDS: PANTOPRAZOLE 40 MG INJECTION IVP SCH (09:22)
--- NOTE | 2017-10-03 10:26 | Progress Note ---
- Date 10/03/17 Subjective: F/U: Acute on chronic respiratory failure. Doing well this morning. Breathing feels okay, some soreness to chest where chest tube is and slight cough. No nausea or ab pain. Passing stools. Appetite strong and eating well. No mouth or throat pain. Not hurting or choking with swallow. Does feel weak and shaky. Objective Vital signs: Temperature 98.5 F 10/02/17 16:00 Pulse Rate 82 10/03/17 06:00 Respiratory Rate 29 H 10/03/17 07:05 Blood Pressure 159/86 H 10/03/17 06:00 Pulse Oximetry 94 10/03/17 07:05 Height/Weight/BMI: Height 1.55 m Weight 48.5 kg Body Mass Index 20.2 - Constitutional Present: well nourished, well developed, cooperative - Routine HEENT Exam Head: Present: normocephalic, atraumatic Eye: Present: EOMI, PERRL ENT: Present: mucous membranes moist - Routine Respiratory Exam Present: decreased breath sounds, prolonged expiratory phase, respiratory distress (Mild), distant breath sounds, diminished air movement - Routine Cardiovascular Exam Present: tachycardia (Regular) - Routine Abdominal Exam Present: soft, normoactive bowel sounds, non distended, non tender. Absent: guarding - Routine Exam Comments: Schroeder present - Routine Extremities Exam Present: edema (+1 ble), pulses intact. Absent: cyanosis, clubbing Comments: SCD in place - Routine Musculoskeletal Exam Musculoskeletal: Present: no clubbing or cyanosis - Routine Skin Exam Present: dry, warm - Routine Neurological Exam Present: alert, oriented X3, CN II-XII intact, moving all extremities, vision grossly intact, hearing grossly intact, normal speech. Absent: motor deficit, altered mental status - Routine Psychiatric Exam Present: normal affect, normal thought process, cooperative. Absent: agitated Results - Labs CBC & Chem 7: 10/03/17 04:22 10/03/17 04:22 - ABG Interpretation ABG results: 10/01/17 16:12 ABG pH 7.536 H ABG pCO2 42 ABG pO2 65.4 L ABG HCO3 35.6 H ABG Total CO2 36.9 H ABG O2 Saturation 94.6 L ABG Base Excess 11.7 H Assessment and Plan (1) Acute and chronic respiratory failure with hypercapnia Current visit: No Status: Acute Assessment and Plan: Impression Acute on chronic respiratory failure with hypercapnia Right pneumothorax (POA) - s/p chest tube placement. Severe respiratory distress - intubated 10/01, extubated 10/02 Pulmonary debility Chronic diastolic heart failure Elevated LFTs (POA) - improved History of tobacco use-quit 2004 Anxiety Hx uterine prolapse Plan CXR showing stability - no infiltrate, pneumothorax resolved with chest tube. Respiratory distress decreasing - Maintaining saturation on O2. Did tolerate BiPAP overnight. Oral drive improving. Continue ceftriaxone and azithromycin for pulmonary coverage. Will continue Solu -Medrol and neb treatments. Add acapella to help decrease congestion. Blood sugars stable - continue monitoring and ISS due to steroid use. PT/OT eval due to underlying pulmonary debility and acute gen debility from this acute illness. Bladder retraining - likely can discontinue Schroeder in near future. Recheck CXR in am due to chest tube. Will repeat CMP and CBC in am due to resolving respiratory failure. Medically stable for transfer to medical floor to continue care. Case discussed with CCU nursing and speech. Time spent with patient care 25 minutes. DVT Prophylaxis: SCD's Resuscitation Status: Full Code - Time spent with patient Time with patient PN: 25 minutes - Physician Narrative Physician: Delano Pretty MD Narrative: Date: 10/03/17 Time: 1023 Hospital Course Summary Disclaimer: The visit summary below is not to be considered part of the above Progress Note. Hospital Course: 10/01/17 Admission Admit patient to CCU as a inpatient under the care of Dr Pretty. Currently on ventilator due to severity of respiratory distress. Propofol drip for sedation. Consultation placed with Dr. Walton for his pulmonary expertise and guidance. Will start patient on IV Rocephin and azithromycin for empiric antimicrobial pulmonary coverage. It is reported that patient does take Zithromax 3 times a week for pulmonary prophylaxis. Schedule DuoNeb neb and Pulmicort breathing treatments. Will obtain sputum culture via suctioning. Normal saline at 100 mL per hour for gentle hydration, monitor for evidence of fluid overload. Patient does chronically take Bumex 1 milligram twice a day and may require diuresing. Solu-Medrol 125 milligrams IV every etc. hours for pulmonary inflammation. Given history of COPD. Ativan as needed for anxiety. Patient does use Xanax at home. Daughter notes she may be using more and more given the severity of her respiratory effort. SCDs for DVT prophylaxis Recheck CBC and CMP tomorrow to follow blood counts, renal function, electrolytes and liver function. Full code is ordered as per Daughter at time of admission At time of discharge medical care will return to PCP, Dr Colunga 10/02/17 Chest tube placed by Dr Walton for decompression of pneumothorax. Able to be extubated and placed on BiPAP this afternoon. Will continue Rocephin and azithromycin for antimicrobial coverage. Decreased Solu-Medrol to 62.5mg IV q 6 hr; continue breathing treatments. Can discontinue IVF and advance diet to regular. Start potassium 20mEg BIDWM as potassium low (home dose 10 Jun). Will restart home Bumex tomorrow. Recheck CXR, BMP, and CBC along with magnesium in am. Continue CCU care and monitoring, possible transfer to floor tomorrow if continues to do well. 10/03/17 CXR showing stability - no infiltrate, pneumothorax resolved with chest tube. Respiratory distress decreasing - Maintaining saturation on O2. Did tolerate BiPAP overnight. Oral drive improving. Continue ceftriaxone and azithromycin for pulmonary coverage. Will continue Solu -Medrol and neb treatments. Add acapella to help decrease congestion. Blood sugars stable - continue monitoring and ISS due to steroid use. PT/OT eval due to underlying pulmonary debility and acute gen debility from this acute illness. Bladder retraining - likely can discontinue Schroeder in near future. Medically stable for transfer to medical floor to continue care.
[2017-10-03] MEDS: CEFTRIAXONE 1 G in NS 100 ML IV SCH (13:54)
[2017-10-03] MEDS: AZITHROMYCIN IV 500 MG in NS 250ml 250 ML IV SCH (14:37)
[2017-10-03] MEDS: INSULIN REGULAR, HUMAN 100 UNIT/ML INJECTION SQ PRN (16:42)
[2017-10-04] MEDS: ALBUTEROL/IPRATROPIUM 2.5mg-0.5mg/3ml NEB AEROSOL SCH ×6 (01:49→20:32)
[2017-10-04] MEDS: METHYLPREDNISOLONE SOD SUCC 125mg/2ml INJECTION IVP SCH ×4 (03:12→20:16)
[2017-10-04] MEDS: SALINE FLUSH 10ml SYRINGE IVF PRN ×6 (03:12→20:16)
[2017-10-04] MEDS: PANTOPRAZOLE 40 MG TABLET PO SCH (06:28)
[2017-10-04] MEDS: BUMETANIDE 1 MG TABLET PO SCH ×2 (08:55→14:24)
--- NOTE | 2017-10-04 08:57 | XRay Report ---
Indication: F/U pneumothorax PROCEDURE: XR chest 1V: Encounter: Initial Comparison: October 03, 2017 Findings: Right chest tube remains in stable position. No visible pneumothorax. Small bilateral pleural effusions. Emphysema. No new or worsening airspace disease. Left PICC line remains in place. Multiple overlying monitoring leads. Heart size and mediastinal contours are stable. Pulmonary vascularity is unchanged. Impression: No pneumothorax with right chest tube in place. .
--- NOTE | 2017-10-04 09:13 | Progress Note ---
- Date 10/04/17 Subjective: Judie is seen this morning in follow-up for COPD. She has continued to utilize BiPAP overnight and has tolerated this well. BiPAP is removed during examination. As patient's preparing for breakfast. She does require 6 liters of oxygen by nasal cannula when off of BiPAP. She does have a significant amount of continued respiratory effort with conversational dyspnea. She is able to say 2 or 3 words at a time. Overall, she feels that her breathing has improved, she does complain of some localized irritation to the lateral chest wall at the site of her chest tube. She does request to leave Schroeder catheter in place without clamping. Given significant urinary output as she does continue to be on Bumex twice a day. Objective Vital signs: Temperature 96.8 F 10/04/17 08:34 Pulse Rate 81 10/04/17 08:34 Respiratory Rate 18 10/04/17 08:34 Blood Pressure 123/80 10/04/17 08:34 Pulse Oximetry 93 10/04/17 08:34 Height/Weight/BMI: Height 1.55 m Weight 52.1 kg Body Mass Index 20.2 - Constitutional Present: moderate distress, well nourished, well developed - Routine HEENT Exam Eye: Present: EOMI ENT: Present: mucous membranes moist, dentition normal - Routine Respiratory Exam Present: diminished air movement - Routine Cardiovascular Exam Present: RRR, S1, S2. Absent: murmur - Routine Abdominal Exam Present: soft, normoactive bowel sounds, non distended. Absent: tenderness - Routine Extremities Exam Present: pulses intact - Routine Skin Exam Present: intact, dry, warm - Routine Neurological Exam Present: alert, oriented X3, CN II-XII intact - Routine Lymphatic Exam Lymphatic: Absent: adenopathy - Routine Psychiatric Exam Present: normal affect, normal thought process, cooperative Results - Labs CBC & Chem 7: 10/04/17 04:36 10/04/17 04:36 Assessment and Plan (1) Acute and chronic respiratory failure with hypercapnia Current visit: No Status: Acute Assessment and Plan: Impression Acute on chronic respiratory failure with hypercapnia Right pneumothorax (POA) - s/p chest tube placement. Severe respiratory distress - intubated 10/01, extubated 10/02 Pulmonary debility Chronic diastolic heart failure Elevated LFTs (POA) - improved History of tobacco use-quit 2004 Anxiety Hx uterine prolapse 10/04 Continue with Bi-pap and oxygen. Right chest tube remains intact- CXR today revels no pneumothorax Continues small bilateral pleural effusions Remains on scheduled Bumex BID. Continued scheduled Nebs. Appreciate Dr Walton expertise Continue ceftriaxone and azithromycin for pulmonary coverage. PT/OT evaluation- She likely has significant pulmonary debility however does live at home alone Case discussed with attending - Physician Narrative Physician: Mikaela Gonzales MD Narrative: Date: 10/04/17 Time: 1854 The patient is independently interviewed and examined by me earlier in the day. She is sitting up in the bed. She does states she feels a bit better. She continues on 6 L via nasal cannula. She does have a cough with clear sputum production. She denies fever or chills. She denies nausea or vomiting. She states she is eating pretty well. He reports her bowels are working. She has having some mild discomfort with a chest tube is. It does remain in place. She says Dr. Walton was by earlier. There is no drainage from the chest tube. Chest x-ray shows pneumothorax has resolved. PE: Gen: alert and oriented. NAD Skin: warm and dry HEENT: NC/AT PERRL, EOMI, Sclera, lids and conjunctiva wnl, MMM, OP clear Neck: supple. No JVD, Carotids 2+ without bruits. Lungs: difficult to hear any breath sounds even at the apex. She does have an exp wheeze. CV: regular. soft murmur Abd: soft. NT/ND, +BS MS: No edema. Good strength and ROM. Neuro: No focal deficit Psy: normal mood and affect Schroeder in place A/P: Impression Acute on chronic respiratory failure with hypercapnia Right pneumothorax (POA) - s/p chest tube placement. Severe respiratory distress - intubated 10/01, extubated 10/02 Pulmonary debility Chronic diastolic heart failure Elevated LFTs (POA) - improved History of tobacco use-quit 2004 Anxiety Hx uterine prolapse Plan 10/04 Continue with Bi-pap and oxygen. Right chest tube remains intact- CXR today revels no pneumothorax -Removal per Dr. Walton Continues small bilateral pleural effusions Remains on scheduled Bumex BID. Continued scheduled Nebs. Appreciate Dr Walton expertise Continue ceftriaxone and azithromycin for pulmonary coverage. PT/OT evaluation- She likely has significant pulmonary debility however does live at home alone I have reviewed the patient's labs, notes and imaging. My physical exam is noted above. I also spoke with Dr. Walton. He is hoping to get the chest tube out either today or tomorrow. Chest x-ray ordered for tomorrow. Will also repeat labs in a.m. Her white blood count did go up a little today but she is on steroids. She is afebrile. Patient was discussed with the nurse practitioner. Assessment and plan was detailed out together and I agree with as above. Hospital Course Summary Disclaimer: The visit summary below is not to be considered part of the above Progress Note. Hospital Course: 10/01/17 Admission Admit patient to CCU as a inpatient under the care of Dr Pretty. Currently on ventilator due to severity of respiratory distress. Propofol drip for sedation. Consultation placed with Dr. Walton for his pulmonary expertise and guidance. Will start patient on IV Rocephin and azithromycin for empiric antimicrobial pulmonary coverage. It is reported that patient does take Zithromax 3 times a week for pulmonary prophylaxis. Schedule DuoNeb neb and Pulmicort breathing treatments. Will obtain sputum culture via suctioning. Normal saline at 100 mL per hour for gentle hydration, monitor for evidence of fluid overload. Patient does chronically take Bumex 1 milligram twice a day and may require diuresing. Solu-Medrol 125 milligrams IV every etc. hours for pulmonary inflammation. Given history of COPD. Ativan as needed for anxiety. Patient does use Xanax at home. Daughter notes she may be using more and more given the severity of her respiratory effort. SCDs for DVT prophylaxis Recheck CBC and CMP tomorrow to follow blood counts, renal function, electrolytes and liver function. Full code is ordered as per Daughter at time of admission At time of discharge medical care will return to PCP, Dr Colunga 10/02/17 Chest tube placed by Dr Walton for decompression of pneumothorax. Able to be extubated and placed on BiPAP this afternoon. Will continue Rocephin and azithromycin for antimicrobial coverage. Decreased Solu-Medrol to 62.5mg IV q 6 hr; continue breathing treatments. Can discontinue IVF and advance diet to regular. Start potassium 20mEg BIDWM as potassium low (home dose 10 Jun). Will restart home Bumex tomorrow. Recheck CXR, BMP, and CBC along with magnesium in am. Continue CCU care and monitoring, possible transfer to floor tomorrow if continues to do well. 10/03/17 CXR showing stability - no infiltrate, pneumothorax resolved with chest tube. Respiratory distress decreasing - Maintaining saturation on O2. Did tolerate BiPAP overnight. Oral drive improving. Continue ceftriaxone and azithromycin for pulmonary coverage. Will continue Solu -Medrol and neb treatments. Add acapella to help decrease congestion. Blood sugars stable - continue monitoring and ISS due to steroid use. PT/OT eval due to underlying pulmonary debility and acute gen debility from this acute illness. Bladder retraining - likely can discontinue Schroeder in near future. Medically stable for transfer to medical floor to continue care. 10/04 Continue with Bi-pap and oxygen. Right chest tube remains intact- CXR today revels no pneumothorax Continues small bilateral pleural effusions Remains on scheduled Bumex BID. Continued scheduled Nebs. Appreciate Dr Walton expertise Continue ceftriaxone and azithromycin for pulmonary coverage. PT/OT evaluation- She likely has significant pulmonary debility however does live at home alone Case discussed with attending
[2017-10-04] MEDS: BUDESONIDE INH.SOLN 0.5mg/2ml NEB AEROSOL SCH ×2 (09:38→20:33)
[2017-10-04] MEDS: INSULIN REGULAR, HUMAN 100 UNIT/ML INJECTION SQ PRN ×2 (11:42→15:18)
--- NOTE | 2017-10-04 12:53 | Pulmonology Progress Note ---
Subjective Principal diagnosis: COPD exacerbation Interval history: using BIPAP at night and prn. currently on nasal cannula 6 lpm (baseline 5 lpm) feels a little better. Exam Vital signs: Temperature 98.1 F 10/04/17 11:40 Pulse Rate 91 10/04/17 11:40 Respiratory Rate 18 10/04/17 11:40 Blood Pressure 141/80 H 10/04/17 11:40 Pulse Oximetry 93 10/04/17 11:40 Inpatient Medications: Generic Name Dose Route Start Last Admin Trade Name Freq PRN Reason Stop Dose Admin Acetaminophen 650 mg 10/01/17 13:56 Tylenol Supp [place] Q5H PRN Pain Acetaminophen 650 mg 10/03/17 14:36 Tylenol PO Q5H PRN Discomfort Albuterol/Ipratropium 3 ml 10/01/17 13:56 Duoneb AEROSOL Q4HR PRN Shortness of air Albuterol/Ipratropium 3 ml 10/03/17 12:00 10/04/17 05:23 Duoneb AEROSOL 3 ml Q4HR TESSIE Administration Bisacodyl 10 mg 10/02/17 14:37 Dulcolax RECTALLY DAILY PRN Constipation Budesonide 0.5 mg 10/01/17 19:00 10/04/17 09:38 Pulmicort Inhalation AEROSOL 0.5 mg RTBID TESSIE Administration Bumetanide 1 mg 10/03/17 09:00 10/04/17 08:55 Bumex 1 Mg Tab PO 1 mg [id number] TESSIE Administration Ceftriaxone Sodium 1 g/ Sodium 100 mls @ 200 mls/hr 10/01/17 13:45 10/03/17 14:25 Chloride IV Infused Q24H TESSIE Infusion Azithromycin 500 mg/ Sodium 250 mls @ 167 mls/hr 10/01/17 13:56 10/03/17 16: 43 Chloride IV Infused Q24H TESSIE Infusion Insulin Human Regular 2 - 8 unit 10/01/17 15:08 10/04/17 11:42 Novolin R SQ 2 unit SS PRN Administration Hyperglycemia Protocol Lorazepam 1 mg 10/02/17 14:40 10/03/17 22:09 Ativan Inj IVP 1 mg Q4H PRN Administration Agitation/Air hunger/Pain Magnesium Hydroxide 30 ml 10/02/17 14:37 Mom PO DAILY PRN Constipation Methylprednisolone Sodium Succinate 62.5 mg 10/02/17 15:00 10/04/17 08:54 Solu-Medrol IVP 62.5 mg Q6HR TESSIE Administration Ondansetron HCl 4 mg 10/01/17 13:56 Zofran IVP Q6H PRN Nausea Pantoprazole Sodium 40 mg 10/04/17 06:30 10/04/17 06:28 Protonix Tab PO 40 mg ACB TESSIE Administration Polyethylene Glycol 17 gm 10/02/17 14:38 Miralax PO DAILY PRN Constipation Potassium Chloride 20 meq 10/02/17 17:30 10/04/17 08:55 Micro-K 10 Meq Capsule PO 20 meq BIDWM TESSIE Administration Sodium Chloride 10 - 80 ml 10/01/17 12:46 10/04/17 08:55 Iv Flush IVF 30 ml PRN PRN Administration Flushing Discontinued Medications Generic Name Dose Route Start Last Admin Trade Name Freq PRN Reason Stop Dose Admin Albuterol/Ipratropium 3 ml 10/01/17 12:46 10/01/17 13:02 Duoneb IH 10/01/17 12:47 3 ml ONCE ONE Administration Albuterol/Ipratropium 3 ml 10/01/17 15:00 10/03/17 07:05 Duoneb AEROSOL 3 ml Q6HR TESSIE Administration Sodium Chloride 1,000 mls @ 999.9 mls/hr 10/01/17 13:26 10/01/17 23:05 Normal Saline IV 10/01/17 14:25 Not Given .Q1H ONE Sodium Chloride 1,000 mls @ 100 mls/hr 10/01/17 13:56 10/02/17 17:00 Normal Saline IV 100 mls/hr .Q10H TESSIE Infusion Propofol 1,000 mg in 100 mls @ 1.569 mls/hr 10/01/17 14:34 10/02/17 14:00 Diprivan IV 0 mcg/kg/min .Q24H PRN 0 mls/hr Protocol Infusion 5 MCG/KG/MIN Sodium Chloride 500 mls @ 999.9 mls/hr 10/01/17 18:30 10/01/17 18:35 Normal Saline IV 10/01/17 18:59 Not Given .Q30M TESSIE Lorazepam 0.5 mg 10/01/17 13:56 10/02/17 21:03 Ativan Inj IVP 0.5 mg Q4H PRN Administration Anxiety/Air hunger/Agitation Methylprednisolone Sodium Succinate 125 mg 10/01/17 15:00 10/02/17 14:28 Solu-Medrol IVP 125 mg Q6HR TESSIE Administration Midazolam HCl 5 mg 10/01/17 12:48 10/01/17 13:17 Versed IVP 10/01/17 12:49 5 mg O ONE Administration Midazolam HCl 5 mg 10/01/17 13:14 10/01/17 13:21 Versed IVP 10/01/17 13:15 5 mg O ONE Administration Pantoprazole Sodium 40 mg 10/02/17 10:45 10/03/17 09:22 Protonix Iv IVP 40 mg DAILY TESSIE Administration Pharmacy Consult 1 each 10/02/17 15:36 Pharmacy Consult - Fall Risk [facility] 10/02/17 15:37 ONE TIME ONE Succinylcholine Chloride 100 mg 10/01/17 12:49 10/01/17 13:23 Quelicin IVP 10/01/17 12:50 100 mg O ONE Administration - Constitutional no acute distress Comments: chronically ill appearing - Routine Neck Exam Present: supple - Routine Respiratory Exam Present: accessory muscle use, prolonged expiratory phase, wheezes - Routine Cardiovascular Exam Present: RRR - Routine Abdominal Exam Present: soft. Absent: guarding - Routine Neurological Exam Present: alert. Absent: motor deficit - Urinary Catheter Management Urethral Cath placed during this visit: yes Urethral indwelling: Yes Insertion date: 10/01/17 Results - Laboratory Findings Laboratory: Laboratory Results - last 48 hr 10/02/17 10/02/17 10/03/17 15:17 21:01 04:22 WBC RBC Hgb Hct MCV MCH MCHC RDW Std Deviation Plt Count MPV Immature Gran % (Auto) Neut % (Auto) Lymph % (Auto) Dare % (Auto) Eos % (Auto) Baso % (Auto) Neut # (Auto) Lymph # (Auto) Dare # (Auto) Eos # (Auto) Baso # (Auto) Abs Immat Gran (auto) Neutrophils % (Manual) Band Neutrophils % Lymphocytes % (Manual) Monocytes % (Manual) Neutrophils # (Manual) Band Neutrophils # Lymphocytes # (Manual) Monocytes # (Manual) RBC Morph Comment Turbidity < 20 Sodium 142 Potassium 3.9 Chloride 98 Carbon Dioxide 37 H Anion Gap 7 BUN 31.0 H Creatinine 0.6 L GFR Calculation 97 BUN/Creatinine Ratio 52 H Glucose 129 H Glucometer 121 151 Calculated Osmolality 282 H Calcium 8.6 Magnesium 2.1 Total Bilirubin Icterus Index < 2 AST ALT Alkaline Phosphatase Total Protein Albumin Globulin Albumin/Globulin Ratio Specimen Hemolysis < 15 10/03/17 10/03/17 10/03/17 04:22 10:17 13:51 WBC 10.8 D RBC 4.29 Hgb 11.7 L Hct 37.9 MCV 88.3 MCH 27.3 MCHC 30.9 L RDW Std Deviation 50.3 H Plt Count 164 MPV 12.4 Immature Gran % (Auto) Not performed Neut % (Auto) Not performed Lymph % (Auto) Not performed Dare % (Auto) Not performed Eos % (Auto) Not performed Baso % (Auto) Not performed Neut # (Auto) Not performed Lymph # (Auto) Not performed Dare # (Auto) Not performed Eos # (Auto) Not performed Baso # (Auto) Not performed Abs Immat Gran (auto) Not performed Neutrophils % (Manual) 92.0 H Band Neutrophils % 1.0 Lymphocytes % (Manual) 2.0 L Monocytes % (Manual) 5.0 Neutrophils # (Manual) 9.9 H Band Neutrophils # 0.1 Lymphocytes # (Manual) 0.2 L Monocytes # (Manual) 0.5 RBC Morph Comment Normal Turbidity Sodium Potassium Chloride Carbon Dioxide Anion Gap BUN Creatinine GFR Calculation BUN/Creatinine Ratio Glucose Glucometer 167 209 Calculated Osmolality Calcium Magnesium Total Bilirubin Icterus Index AST ALT Alkaline Phosphatase Total Protein Albumin Globulin Albumin/Globulin Ratio Specimen Hemolysis 10/03/17 10/04/17 10/04/17 21:22 04:36 04:36 WBC 11.4 H RBC 4.38 Hgb 11.8 L Hct 39.9 MCV 91.1 MCH 26.9 MCHC 29.6 L RDW Std Deviation 50.1 Plt Count 148 MPV 12.0 Immature Gran % (Auto) Not performed Neut % (Auto) Not performed Lymph % (Auto) Not performed Dare % (Auto) Not performed Eos % (Auto) Not performed Baso % (Auto) Not performed Neut # (Auto) Not performed Lymph # (Auto) Not performed Dare # (Auto) Not performed Eos # (Auto) Not performed Baso # (Auto) Not performed Abs Immat Gran (auto) Not performed Neutrophils % (Manual) 90.0 H Band Neutrophils % 4.0 Lymphocytes % (Manual) 3.0 L Monocytes % (Manual) 3.0 Neutrophils # (Manual) 10.3 H Band Neutrophils # 0.5 Lymphocytes # (Manual) 0.3 L Monocytes # (Manual) 0.3 RBC Morph Comment Normal Turbidity < 20 Sodium 142 Potassium 3.7 Chloride 91 L D Carbon Dioxide 44 H* Anion Gap 7 BUN 30.0 H Creatinine 0.5 L GFR Calculation 120 BUN/Creatinine Ratio 60 H Glucose 126 H Glucometer 98 Calculated Osmolality 281 H Calcium 8.2 L Magnesium Total Bilirubin 0.30 Icterus Index < 2 AST 26 ALT 28 Alkaline Phosphatase 64 Total Protein 6.1 L Albumin 3.2 L Globulin 2.9 Albumin/Globulin Ratio 1.1 Specimen Hemolysis < 15 10/04/17 10/04/17 06:05 10:55 WBC RBC Hgb Hct MCV MCH MCHC RDW Std Deviation Plt Count MPV Immature Gran % (Auto) Neut % (Auto) Lymph % (Auto) Dare % (Auto) Eos % (Auto) Baso % (Auto) Neut # (Auto) Lymph # (Auto) Dare # (Auto) Eos # (Auto) Baso # (Auto) Abs Immat Gran (auto) Neutrophils % (Manual) Band Neutrophils % Lymphocytes % (Manual) Monocytes % (Manual) Neutrophils # (Manual) Band Neutrophils # Lymphocytes # (Manual) Monocytes # (Manual) RBC Morph Comment Turbidity Sodium Potassium Chloride Carbon Dioxide Anion Gap BUN Creatinine GFR Calculation BUN/Creatinine Ratio Glucose Glucometer 110 165 Calculated Osmolality Calcium Magnesium Total Bilirubin Icterus Index AST ALT Alkaline Phosphatase Total Protein Albumin Globulin Albumin/Globulin Ratio Specimen Hemolysis - Diagnostic Findings Chest x-ray: report reviewed, image reviewed Assessment and Plan (1) Acute exacerbation of chronic obstructive airways disease Status: Acute Assessment and plan: slowly improving. on methylpred 62.5 q6. Switch to prednisone 40/day. O2 to keep sat >90% Neb albuterol/iprat q4h Current Visit: Yes (2) Acute and chronic respiratory failure with hypercapnia Status: Acute Assessment and plan: BIPAP at night and prn. would likely benefit from home [id number]. Will need to recheck and ABG prior to dismissal Current Visit: No (3) Pneumothorax Status: Acute Assessment and plan: No PTX with chest tube on suction this AM. have taken the tube off suction and will repeat a CXR. Current Visit: Yes - Assessment and Plan Acute on Chronic Hypoxic Respiratory Failure COPD exacerbation Right Pneumothorax Chronic Diastolic Heart Failure - Time Spent With Patient Total time spent is greater than 50% in coordination of care (as documented) at patient's floor/unit and/or counseling patient: 25 - 35 minutes
--- NOTE | 2017-10-04 13:31 | XRay Report ---
Indication: pneumothorax, chest tube on water seal PROCEDURE: XR chest 1V: Encounter: Initial Comparison: October 04, 2017 at 0636 Findings: Right chest tube in stable position. Left PICC line remains in place. No visible pneumothorax. Small bilateral effusions are stable. Pulmonary vascular congestion. Heart size and mediastinal contours are stable. Impression: No visible pneumothorax. .
[2017-10-04] MEDS: CEFTRIAXONE 1 G in NS 100 ML IV SCH (14:23)
[2017-10-04] MEDS ORDERED: NS FLUSH BAG 500ml IV PRN (14:26)
[2017-10-04] MEDS: AZITHROMYCIN IV 500 MG in NS 250ml 250 ML IV SCH (15:14)
--- NOTE | 2017-10-04 16:07 | Pharmacy Note - Antibiotics ---
Pharmacy - Antibiotic Therapy - Laboratory Information Laboratory 10/02/17 10/03/17 10/04/17 04:47 04:22 04:36 Creatinine 0.5 L 0.6 L 0.5 L - Antibiotic Information Azithromycin therapy day #4. Noted comment to continue azithromycin. Will convert to po azithromycin. Thank you.
[2017-10-04] MEDS: ACETAMINOPHEN 325 MG TABLET PO PRN (17:16)
[2017-10-05] MEDS: ALBUTEROL/IPRATROPIUM 2.5mg-0.5mg/3ml NEB AEROSOL SCH ×6 (00:31→19:12)
[2017-10-05] MEDS: SALINE FLUSH 10ml SYRINGE IVF PRN ×6 (01:52→20:57)
[2017-10-05] MEDS: METHYLPREDNISOLONE SOD SUCC 125mg/2ml INJECTION IVP SCH ×4 (03:42→20:56)
[2017-10-05] MEDS: PANTOPRAZOLE 40 MG TABLET PO SCH (05:36)
[2017-10-05] MEDS ORDERED: AZITHROMYCIN 500 MG TABLET PO SCH (06:30)
--- NOTE | 2017-10-05 08:21 | XRay Report ---
Indication: right pneumothorax PROCEDURE: XR chest 1V: Encounter: Initial Comparison: October 04, 2017 at 1316 Findings: Left PICC line and right chest tube are stable in position. No visible pneumothorax. Emphysema. No new or worsening airspace disease. Cardiomediastinal contours and pulmonary vascularity are stable. Impression: Stable appearance of the chest without visible pneumothorax. .
[2017-10-05] MEDS: BUDESONIDE INH.SOLN 0.5mg/2ml NEB AEROSOL SCH ×2 (08:50→19:12)
[2017-10-05] MEDS: BUMETANIDE 1 MG TABLET PO SCH ×2 (09:41→13:55)
--- NOTE | 2017-10-05 11:48 | Pulmonology Progress Note ---
Subjective Principal diagnosis: COPD exacerbation Interval history: Pt in bed states her breathing is stable. Slight cough and sputum and SOB is her norm. Used the bipap last night and chacho well. Exam Vital signs: Temperature 97.6 F 10/05/17 07:36 Pulse Rate 68 10/05/17 08:00 Respiratory Rate 20 10/05/17 08:50 Blood Pressure 131/73 10/05/17 07:36 Pulse Oximetry 95 10/05/17 08:50 Inpatient Medications: Generic Name Dose Route Start Last Admin Trade Name Freq PRN Reason Stop Dose Admin Acetaminophen 650 mg 10/01/17 13:56 Tylenol Supp AL Q5H PRN Pain Acetaminophen 650 mg 10/03/17 14:36 10/04/17 17:16 Tylenol PO 650 mg Q5H PRN Administration Discomfort Albuterol/Ipratropium 3 ml 10/01/17 13:56 Duoneb AEROSOL Q4HR PRN Shortness of air Albuterol/Ipratropium 3 ml 10/03/17 12:00 10/05/17 08:50 Duoneb AEROSOL 3 ml Q4HR TESSIE Administration Azithromycin 500 mg 10/05/17 06:30 10/05/17 05:36 Zithromax PO 500 mg ACB TESSIE Administration Bisacodyl 10 mg 10/02/17 14:37 Dulcolax RECTALLY DAILY PRN Constipation Budesonide 0.5 mg 10/01/17 19:00 10/05/17 08:50 Pulmicort Inhalation AEROSOL 0.5 mg RTBID TESSIE Administration Bumetanide 1 mg 10/03/17 09:00 10/05/17 09:41 Bumex 1 Mg Tab PO 1 mg [id number] TESSIE Administration Ceftriaxone Sodium 1 g/ Sodium 100 mls @ 200 mls/hr 10/01/17 13:45 10/04/17 14:55 Chloride IV Infused Q24H TESSIE Infusion Insulin Human Regular 2 - 8 unit 10/01/17 15:08 10/04/17 15:18 Novolin R SQ 2 unit SS PRN Administration Hyperglycemia Protocol Lorazepam 1 mg 10/02/17 14:40 10/05/17 01:51 Ativan Inj IVP 1 mg Q4H PRN Administration Agitation/Air hunger/Pain Magnesium Hydroxide 30 ml 10/02/17 14:37 Mom PO DAILY PRN Constipation Methylprednisolone Sodium Succinate 62.5 mg 10/02/17 15:00 10/05/17 09:42 Solu-Medrol IVP 62.5 mg Q6HR TESSIE Administration Ondansetron HCl 4 mg 10/01/17 13:56 Zofran IVP Q6H PRN Nausea Pantoprazole Sodium 40 mg 10/04/17 06:30 10/05/17 05:36 Protonix Tab PO 40 mg ACB TESSIE Administration Polyethylene Glycol 17 gm 10/02/17 14:38 Miralax PO DAILY PRN Constipation Potassium Chloride 20 meq 10/02/17 17:30 10/05/17 09:42 Micro-K 10 Meq Capsule PO 20 meq BIDWM TESSIE Administration Sodium Chloride 10 - 80 ml 10/01/17 12:46 10/05/17 09:47 Iv Flush IVF 30 ml PRN PRN Administration Flushing Sodium Chloride 500 ml 10/04/17 14:26 10/04/17 14:28 Normal Saline IV 500 ml PRN PRN Administration Discontinued Medications Generic Name Dose Route Start Last Admin Trade Name Freq PRN Reason Stop Dose Admin Albuterol/Ipratropium 3 ml 10/01/17 12:46 10/01/17 13:02 Duoneb IH 10/01/17 12:47 3 ml ONCE ONE Administration Albuterol/Ipratropium 3 ml 10/01/17 15:00 10/03/17 07:05 Duoneb AEROSOL 3 ml Q6HR TESSIE Administration Sodium Chloride 1,000 mls @ 999.9 mls/hr 10/01/17 13:26 10/01/17 23:05 Normal Saline IV 10/01/17 14:25 Not Given .Q1H ONE Azithromycin 500 mg/ Sodium 250 mls @ 167 mls/hr 10/01/17 13:56 10/04/17 16: 58 Chloride IV Infused Q24H TESSIE Infusion Sodium Chloride 1,000 mls @ 100 mls/hr 10/01/17 13:56 10/02/17 17:00 Normal Saline IV 100 mls/hr .Q10H TESSIE Infusion Propofol 1,000 mg in 100 mls @ 1.569 mls/hr 10/01/17 14:34 10/02/17 14:00 Diprivan IV 0 mcg/kg/min .Q24H PRN 0 mls/hr Protocol Infusion 5 MCG/KG/MIN Sodium Chloride 500 mls @ 999.9 mls/hr 10/01/17 18:30 10/01/17 18:35 Normal Saline IV 10/01/17 18:59 Not Given .Q30M TESSIE Lorazepam 0.5 mg 10/01/17 13:56 10/02/17 21:03 Ativan Inj IVP 0.5 mg Q4H PRN Administration Anxiety/Air hunger/Agitation Methylprednisolone Sodium Succinate 125 mg 10/01/17 15:00 10/02/17 14:28 Solu-Medrol IVP 125 mg Q6HR TESSIE Administration Midazolam HCl 5 mg 10/01/17 12:48 10/01/17 13:17 Versed IVP 10/01/17 12:49 5 mg O ONE Administration Midazolam HCl 5 mg 10/01/17 13:14 10/01/17 13:21 Versed IVP 10/01/17 13:15 5 mg O ONE Administration Pantoprazole Sodium 40 mg 10/02/17 10:45 10/03/17 09:22 Protonix Iv IVP 40 mg DAILY TESSIE Administration Pharmacy Consult 1 each 10/02/17 15:36 Pharmacy Consult - Fall Risk [facility] 10/02/17 15:37 ONE TIME ONE Succinylcholine Chloride 100 mg 10/01/17 12:49 10/01/17 13:23 Quelicin IVP 10/01/17 12:50 100 mg O ONE Administration - Constitutional mild distress, thin, cooperative - Routine HEENT Exam Head: Present: normocephalic, atraumatic Eye: Present: EOMI, PERRL ENT: Present: mucous membranes moist - Routine Neck Exam Present: supple, full ROM, trachea midline - Routine Respiratory Exam Present: decreased breath sounds. Absent: patient mechanically ventilated - Routine Cardiovascular Exam Present: RRR, S1, S2, no murmur - Routine Abdominal Exam Present: soft, normoactive bowel sounds - Routine Extremities Exam Present: edema, non tender, full ROM. Absent: cyanosis, clubbing - Routine Back/Spine/Pelvis Exam Back/Spine: Present: full ROM - Routine Skin Exam Present: intact, dry. Absent: cyanosis - Routine Neurological Exam Present: alert, oriented X3, CN II-XII intact - Routine Psychiatric Exam Present: normal affect, normal thought process, cooperative - Urinary Catheter Management Urethral Cath placed during this visit: yes Urethral indwelling: Yes Reason for continuing: Accurate I&O/Aggressive Diuresis Insertion date: 10/01/17 Results - Laboratory Findings Laboratory: Laboratory Results - last 48 hr 10/03/17 10/03/17 10/04/17 13:51 21:22 04:36 WBC 11.4 H RBC 4.38 Hgb 11.8 L Hct 39.9 MCV 91.1 MCH 26.9 MCHC 29.6 L RDW Std Deviation 50.1 Plt Count 148 MPV 12.0 Immature Gran % (Auto) Not performed Neut % (Auto) Not performed Lymph % (Auto) Not performed [place] % (Auto) Not performed Eos % (Auto) Not performed Baso % (Auto) Not performed Neut # (Auto) Not performed Lymph # (Auto) Not performed [place] # (Auto) Not performed Eos # (Auto) Not performed Baso # (Auto) Not performed Abs Immat Gran (auto) Not performed Neutrophils % (Manual) 90.0 H Band Neutrophils % 4.0 Lymphocytes % (Manual) 3.0 L Monocytes % (Manual) 3.0 Neutrophils # (Manual) 10.3 H Band Neutrophils # 0.5 Lymphocytes # (Manual) 0.3 L Monocytes # (Manual) 0.3 RBC Morph Comment Normal Turbidity Sodium Potassium Chloride Carbon Dioxide Anion Gap BUN Creatinine GFR Calculation BUN/Creatinine Ratio Glucose Glucometer 209 98 Calculated Osmolality Calcium Total Bilirubin Icterus Index AST ALT Alkaline Phosphatase Total Protein Albumin Globulin Albumin/Globulin Ratio Specimen Hemolysis 10/04/17 10/04/17 10/04/17 04:36 06:05 10:55 WBC RBC Hgb Hct MCV MCH MCHC RDW Std Deviation Plt Count MPV Immature Gran % (Auto) Neut % (Auto) Lymph % (Auto) [place] % (Auto) Eos % (Auto) Baso % (Auto) Neut # (Auto) Lymph # (Auto) [place] # (Auto) Eos # (Auto) Baso # (Auto) Abs Immat Gran (auto) Neutrophils % (Manual) Band Neutrophils % Lymphocytes % (Manual) Monocytes % (Manual) Neutrophils # (Manual) Band Neutrophils # Lymphocytes # (Manual) Monocytes # (Manual) RBC Morph Comment Turbidity < 20 Sodium 142 Potassium 3.7 Chloride 91 L D Carbon Dioxide 44 H* Anion Gap 7 BUN 30.0 H Creatinine 0.5 L GFR Calculation 120 BUN/Creatinine Ratio 60 H Glucose 126 H Glucometer 110 165 Calculated Osmolality 281 H Calcium 8.2 L Total Bilirubin 0.30 Icterus Index < 2 AST 26 ALT 28 Alkaline Phosphatase 64 Total Protein 6.1 L Albumin 3.2 L Globulin 2.9 Albumin/Globulin Ratio 1.1 Specimen Hemolysis < 15 10/04/17 10/04/17 10/05/17 14:25 20:18 04:23 WBC 9.4 RBC 4.43 Hgb 11.9 L Hct 40.4 MCV 91.2 MCH 26.9 MCHC 29.5 L RDW Std Deviation 48.8 Plt Count 144 MPV 12.6 H Immature Gran % (Auto) Not performed Neut % (Auto) Not performed Lymph % (Auto) Not performed [place] % (Auto) Not performed Eos % (Auto) Not performed Baso % (Auto) Not performed Neut # (Auto) Not performed Lymph # (Auto) Not performed [place] # (Auto) Not performed Eos # (Auto) Not performed Baso # (Auto) Not performed Abs Immat Gran (auto) Not performed Neutrophils % (Manual) 97.0 H Band Neutrophils % Lymphocytes % (Manual) 3.0 L Monocytes % (Manual) Neutrophils # (Manual) 9.1 H Band Neutrophils # Lymphocytes # (Manual) 0.3 L Monocytes # (Manual) RBC Morph Comment Normal Turbidity Sodium Potassium Chloride Carbon Dioxide Anion Gap BUN Creatinine GFR Calculation BUN/Creatinine Ratio Glucose Glucometer 195 103 Calculated Osmolality Calcium Total Bilirubin Icterus Index AST ALT Alkaline Phosphatase Total Protein Albumin Globulin Albumin/Globulin Ratio Specimen Hemolysis 10/05/17 10/05/17 04:23 06:09 WBC RBC Hgb Hct MCV MCH MCHC RDW Std Deviation Plt Count MPV Immature Gran % (Auto) Neut % (Auto) Lymph % (Auto) [place] % (Auto) Eos % (Auto) Baso % (Auto) Neut # (Auto) Lymph # (Auto) [place] # (Auto) Eos # (Auto) Baso # (Auto) Abs Immat Gran (auto) Neutrophils % (Manual) Band Neutrophils % Lymphocytes % (Manual) Monocytes % (Manual) Neutrophils # (Manual) Band Neutrophils # Lymphocytes # (Manual) Monocytes # (Manual) RBC Morph Comment Turbidity < 20 Sodium 139 Potassium 3.5 L Chloride 86 L Carbon Dioxide 51 H* Anion Gap 2 L BUN 27.0 H Creatinine 0.5 L GFR Calculation 120 BUN/Creatinine Ratio 54 H Glucose 131 H Glucometer 115 Calculated Osmolality 275 Calcium 8.1 L Total Bilirubin Icterus Index < 2 AST ALT Alkaline Phosphatase Total Protein Albumin Globulin Albumin/Globulin Ratio Specimen Hemolysis < 15 - Diagnostic Findings Chest x-ray: image reviewed (COPD, no ptx noted) Assessment and Plan - Assessment and Plan Acute on Chronic Hypoxic Respiratory Failure COPD exacerbation Right Pneumothorax Chronic Diastolic Heart Failure Plan: Pt currently on 6L per NC, on 5L at home, chacho. Used the bipap last noc and encouraged use qHs and prn days f12, 23/10. Cont on BT's with pulmicort BID, a/a q4hr with solumedrol 60mg q6hr. On azithro/rocephin for COPD exacerbation. CXR today without PTX and no air leak, will pull R CT and check CXR in 4 hrs. - Time Spent With Patient Total time spent is greater than 50% in coordination of care (as documented) at patient's floor/unit and/or counseling patient: less than 15 minutes
[2017-10-05] MEDS: CEFTRIAXONE 1 G in NS 100 ML IV SCH (13:54)
--- NOTE | 2017-10-05 15:07 | XRay Report ---
Indication: PTX PROCEDURE: XR chest 1V: Encounter: Initial Comparison: October 05, 2017 at 0600 Findings: Prior right chest tube is been removed. Left PICC line remains in place. No visible or clinically significant pneumothorax. Emphysema with small effusions. Cardiac silhouette remains enlarged. Mediastinal contours and pulmonary vascularity are stable. Impression: No pneumothorax following right chest tube removal. .
[2017-10-05] MEDS: INSULIN REGULAR, HUMAN 100 UNIT/ML INJECTION SQ PRN (16:11)
--- NOTE | 2017-10-05 17:28 | Progress Note ---
- Date 10/05/17 Subjective: Judie is a 76 yr old female with a known history of COPD and emphysema. She chronically uses 5 liters of oxygen by nasal cannula. It is reported that patient had about a 2 day history of increasing dyspnea. Patient was seen on the morning of admission by home health who felt she was in severe distress and found her to have saturations in the 60s. EMS was contacted. Patient was transported to the emergency room for further evaluation and treatment. Upon arrival, she continued to be hypoxic in the 70s despite oxygenation. Given the severity of her respiratory distress. Patient was rapid sequence intubated while in the emergency room. She was subsequently intubated. All collateral information is obtained from daughter at the bedside as patient is intubated and unable to respond verbally. Daughter reports that patient's chronic lung disease has continued to worsen to the point that she is unable to even do activities of daily living. She also notes that patient will often "skip " Lasix dosing as it is too much work for her to get up and go to the bathroom. She is on continuous 5 liters of oxygen at home. We did discuss in great detail regarding advanced directive wishes. Daughter does note that patient's quality of life has continued to decline and she would not want to be on the ventilator long-term. She is in agreement to keep her intubated in the short time while we attempt to improve patient with medications, ventilation, and rest. At this point, we will keep patient a full code. However, daughter may want to revisit this decision over the next several days. This morning Mr. Weber was on oxygen via nasal cannula. He continues to require 6 L. She tolerates BiPAP at night. Dr. Walton was in earlier and did remove the chest tube. Chest x-ray after chest tube was pulled continues to show no evidence the pneumothorax. She denies fever or chills. She does state that her breathing is better. She denies nausea, vomiting, diarrhea or constipation. She is eating pretty well. Her biggest complaint is that she's quite weak. She is planning on starting pulmonary rehab what she is discharged. Hopefully we can get her strength and in the next day or 2 and subsequently discharge back to home. She does have considerable health at home. Objective Vital signs: Temperature 98.3 F 10/05/17 16:17 Pulse Rate 109 H 10/05/17 16:17 Respiratory Rate 16 10/05/17 16:17 Blood Pressure 133/77 10/05/17 16:17 Pulse Oximetry 92 10/05/17 16:17 Height/Weight/BMI: Height 1.55 m Weight 53.2 kg Body Mass Index 20.2 Comments: Gen: alert and oriented. NAD Skin: warm and dry HEENT: NC/AT PERRL, EOMI, Sclera, lids and conjunctiva wnl, MMM, OP clear Neck: supple. No JVD, Carotids 2+ without bruits. Lungs: difficult to hear any breath sounds even at the apex. She does have an exp wheeze which is slightly better today than yesterday. CV: regular. soft murmur Abd: soft. NT/ND, +BS MS: No edema. Good strength and ROM. Neuro: No focal deficit Psy: normal mood and affect Schroeder in place Results - Labs CBC & Chem 7: 10/05/17 04:23 10/05/17 04:23 Assessment and Plan (1) Acute and chronic respiratory failure with hypercapnia Current visit: No Status: Acute Assessment and Plan: Impression/Plan Acute on chronic respiratory failure with hypercapnia -Dr. Walton consulted, appreciate his assistants -continues on methylprednisolone 62.5 mg Q6 hours -currently on ceftriaxone and azithromycin for presumed pneumonia, she did have a positive sputum culture with Stenotrophomonas maltophilia that is sensitive to levaquin, will switch to po Levaquin to complete antiobiotic course. Right pneumothorax (POA) - s/p chest tube placement. -The chest tube has been removed and subsequent chest x-ray shows no recurrent pneumothorax Severe respiratory distress - intubated 10/01, extubated 10/02 -she essentially has end-stage COPD Pulmonary debility -is hoping to start pulmonary rehab once she's discharge Chronic diastolic heart failure -this appears fairly stable at present -on Bumex 1 mg twice daily Elevated LFTs (POA) -resolved History of tobacco use-quit 2004 Anxiety -on Ativan 1 mg Q4 hours PRN gastric softer reflux disease -on proton pump inhibitor weakness and debility -physical therapy is working with her disposition -hopefully home soon. - Physician Narrative Narrative: Date: 10/05/17 Time: 1721 Hospital Course Summary Disclaimer: The visit summary below is not to be considered part of the above Progress Note. Hospital Course: 10/01/17 Admission Admit patient to CCU as a inpatient under the care of Dr Pretty. Currently on ventilator due to severity of respiratory distress. Propofol drip for sedation. Consultation placed with Dr. Walton for his pulmonary expertise and guidance. Will start patient on IV Rocephin and azithromycin for empiric antimicrobial pulmonary coverage. It is reported that patient does take Zithromax 3 times a week for pulmonary prophylaxis. Schedule DuoNeb neb and Pulmicort breathing treatments. Will obtain sputum culture via suctioning. Normal saline at 100 mL per hour for gentle hydration, monitor for evidence of fluid overload. Patient does chronically take Bumex 1 milligram twice a day and may require diuresing. Solu-Medrol 125 milligrams IV every etc. hours for pulmonary inflammation. Given history of COPD. Ativan as needed for anxiety. Patient does use Xanax at home. Daughter notes she may be using more and more given the severity of her respiratory effort. SCDs for DVT prophylaxis Recheck CBC and CMP tomorrow to follow blood counts, renal function, electrolytes and liver function. Full code is ordered as per Daughter at time of admission At time of discharge medical care will return to PCP, Dr Colunga 10/02/17 Chest tube placed by Dr Walton for decompression of pneumothorax. Able to be extubated and placed on BiPAP this afternoon. Will continue Rocephin and azithromycin for antimicrobial coverage. Decreased Solu-Medrol to 62.5mg IV q 6 hr; continue breathing treatments. Can discontinue IVF and advance diet to regular. Start potassium 20mEg BIDWM as potassium low (home dose 10 Jun). Will restart home Bumex tomorrow. Recheck CXR, BMP, and CBC along with magnesium in am. Continue CCU care and monitoring, possible transfer to floor tomorrow if continues to do well. 10/03/17 CXR showing stability - no infiltrate, pneumothorax resolved with chest tube. Respiratory distress decreasing - Maintaining saturation on O2. Did tolerate BiPAP overnight. Oral drive improving. Continue ceftriaxone and azithromycin for pulmonary coverage. Will continue Solu -Medrol and neb treatments. Add acapella to help decrease congestion. Blood sugars stable - continue monitoring and ISS due to steroid use. PT/OT eval due to underlying pulmonary debility and acute gen debility from this acute illness. Bladder retraining - likely can discontinue Schroeder in near future. Medically stable for transfer to medical floor to continue care. 10/04 Continue with Bi-pap and oxygen. Right chest tube remains intact- CXR today revels no pneumothorax Continues small bilateral pleural effusions Remains on scheduled Bumex BID. Continued scheduled Nebs. Appreciate Dr Walton expertise Continue ceftriaxone and azithromycin for pulmonary coverage. PT/OT evaluation- She likely has significant pulmonary debility however does live at home alone Case discussed with attending
[2017-10-06] MEDS: ALBUTEROL/IPRATROPIUM 2.5mg-0.5mg/3ml NEB AEROSOL SCH ×8 (00:16→23:38)
[2017-10-06] MEDS: METHYLPREDNISOLONE SOD SUCC 125mg/2ml INJECTION IVP SCH ×4 (03:53→21:21)
[2017-10-06] MEDS: LEVOFLOXACIN 750 MG TABLET PO SCH (05:30)
[2017-10-06] MEDS: PANTOPRAZOLE 40 MG TABLET PO SCH (06:12)
[2017-10-06] MEDS: BUDESONIDE INH.SOLN 0.5mg/2ml NEB AEROSOL SCH ×2 (07:39→19:25)
[2017-10-06] MEDS: BUMETANIDE 1 MG TABLET PO SCH ×2 (09:51→14:09)
[2017-10-06] MEDS ORDERED: SALINE 0.65% NASAL SPRAY 44 ML BOTTLE EA NOSTRIL PRN (11:34)
--- NOTE | 2017-10-06 14:50 | Progress Note ---
- Date 10/06/17 Subjective: Judie is a 76 yr old female with a known history of COPD and emphysema. She chronically uses 5 liters of oxygen by nasal cannula. It is reported that patient had about a 2 day history of increasing dyspnea. Patient was seen by home health on the morning of admission who felt she was in severe respiratory distress with saturations in the 60s. EMS was contacted. Patient was transported to the emergency room for further evaluation and treatment. Upon arrival, she continued to be hypoxic in the 70s despite oxygenation. Given the severity of her respiratory distress. Patient was rapid sequence intubated while in the emergency room. All collateral information is obtained from daughter at the bedside as patient is intubated and unable to respond verbally. Daughter reports that patient's chronic lung disease has continued to worsen to the point that she is unable to even do activities of daily living. She also notes that patient will often "skip " Lasix dosing as it is too much work for her to get up and go to the bathroom. She is on continuous 5 liters of oxygen at home. We did discuss in great detail regarding advanced directive wishes. Daughter does note that patient's quality of life has continued to decline and she would not want to be on the ventilator long-term. She is in agreement to keep her intubated in the short time while we attempt to improve patient with medications, ventilation, and rest. At this point, we will keep patient a full code. However, daughter may want to revisit this decision over the next several days. Patient was found to have a pneumothorax on the right. Dr. Walton was consulted and placed a chest tube into the right chest. He pneumothorax resolved and the chest tube was able to be taken out on 10/05/2017. The patient continues to require 5 to 6 L of oxygen by nasal cannula during the day. She is utilizing BiPAP periodically at night. She didn't not tolerate it very well last evening. When seen this morning she complains of being weak and tired. She thinks her breathing is pretty much baseline for her. She continues to have Schroeder and I explained to her that we needed to get that out. I did decrease review Max as I felt she was getting a little dry. I will provide her with the bedside commode. She needs to be ambulating more and may even benefit from a short stay in IRU. She denies feeling any fever or chills. She denies any coffer sputum production. She denies any chest pain or palpitations. She denies any nausea or vomiting. She tells me her bowels are working fine but last documented BM was on 10/03/17. She does tell me that she is eating fine. Objective Vital signs: Temperature 97.7 F 10/06/17 07:08 Pulse Rate 78 10/06/17 08:00 Respiratory Rate 18 10/06/17 11:34 Blood Pressure 135/79 10/06/17 07:08 Pulse Oximetry 94 10/06/17 11:34 Height/Weight/BMI: Height 1.55 m Weight 51.7 kg Body Mass Index 20.2 Comments: Gen: alert and oriented. NAD Skin: warm and dry HEENT: NC/AT PERRL, EOMI, Sclera, lids and conjunctiva wnl, MMM, OP clear Neck: supple. No JVD, Carotids 2+ without bruits. Lungs: difficult to hear any breath sounds even at the apex. Soft expiratory wheeze CV: regular. soft murmur Abd: soft. NT/ND, +BS MS: No edema. Good strength and ROM. Neuro: No focal deficit Psy: normal mood and affect Schroeder in place Results - Labs CBC & Chem 7: 10/05/17 04:23 10/05/17 04:23 Assessment and Plan (1) Acute and chronic respiratory failure with hypercapnia Current visit: No Status: Acute Assessment and Plan: Impression/Plan Acute on chronic respiratory failure with hypercapnia -Dr. Walton consulted, appreciate his assistance -continues on methylprednisolone 62.5 mg IV Q6 hours-will try switching to a PO prednisone taper. -Previously on ceftriaxone and azithromycin for presumed pneumonia, she did have a positive sputum culture with Stenotrophomonas maltophilia that is sensitive to levaquin -now on Levaquin Right pneumothorax (POA) - s/p chest tube placement. 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 -Will SHIRIN Schroeder Elevated LFTs (POA) -resolved History of tobacco use-quit 2004 Anxiety -on Ativan 1 mg Q4 hours PRN gastroesophageal reflux disease -on proton pump inhibitor weakness and debility -physical therapy is working with her disposition -hopefully home soon but may need IRU briefly for strengthening. - Physician Narrative Narrative: Date: 10/06/17 Time: 1442 Hospital Course Summary Disclaimer: The visit summary below is not to be considered part of the above Progress Note. Hospital Course: 10/01/17 Admission Admit patient to CCU as a inpatient under the care of Dr Pretty. Currently on ventilator due to severity of respiratory distress. Propofol drip for sedation. Consultation placed with Dr. Walton for his pulmonary expertise and guidance. Will start patient on IV Rocephin and azithromycin for empiric antimicrobial pulmonary coverage. It is reported that patient does take Zithromax 3 times a week for pulmonary prophylaxis. Schedule DuoNeb neb and Pulmicort breathing treatments. Will obtain sputum culture via suctioning. Normal saline at 100 mL per hour for gentle hydration, monitor for evidence of fluid overload. Patient does chronically take Bumex 1 milligram twice a day and may require diuresing. Solu-Medrol 125 milligrams IV every etc. hours for pulmonary inflammation. Given history of COPD. Ativan as needed for anxiety. Patient does use Xanax at home. Daughter notes she may be using more and more given the severity of her respiratory effort. SCDs for DVT prophylaxis Recheck CBC and CMP tomorrow to follow blood counts, renal function, electrolytes and liver function. Full code is ordered as per Daughter at time of admission At time of discharge medical care will return to PCP, Dr Colunga 10/02/17 Chest tube placed by Dr Walton for decompression of pneumothorax. Able to be extubated and placed on BiPAP this afternoon. Will continue Rocephin and azithromycin for antimicrobial coverage. Decreased Solu-Medrol to 62.5mg IV q 6 hr; continue breathing treatments. Can discontinue IVF and advance diet to regular. Start potassium 20mEg BIDWM as potassium low (home dose 10 Jun). Will restart home Bumex tomorrow. Recheck CXR, BMP, and CBC along with magnesium in am. Continue CCU care and monitoring, possible transfer to floor tomorrow if continues to do well. 10/03/17 CXR showing stability - no infiltrate, pneumothorax resolved with chest tube. Respiratory distress decreasing - Maintaining saturation on O2. Did tolerate BiPAP overnight. Oral drive improving. Continue ceftriaxone and azithromycin for pulmonary coverage. Will continue Solu -Medrol and neb treatments. Add acapella to help decrease congestion. Blood sugars stable - continue monitoring and ISS due to steroid use. PT/OT eval due to underlying pulmonary debility and acute gen debility from this acute illness. Bladder retraining - likely can discontinue Schroeder in near future. Medically stable for transfer to medical floor to continue care. 10/04 Continue with Bi-pap and oxygen. Right chest tube remains intact- CXR today revels no pneumothorax Continues small bilateral pleural effusions Remains on scheduled Bumex BID. Continued scheduled Nebs. Appreciate Dr Walton expertise Continue ceftriaxone and azithromycin for pulmonary coverage. PT/OT evaluation- She likely has significant pulmonary debility however does live at home alone Case discussed with attending
[2017-10-06] MEDS: INSULIN REGULAR, HUMAN 100 UNIT/ML INJECTION SQ PRN (17:43)
[2017-10-06] MEDS: SALINE FLUSH 10ml SYRINGE IVF PRN (21:22)
[2017-10-07] MEDS: SALINE FLUSH 10ml SYRINGE IVF PRN (03:10)
[2017-10-07] MEDS: METHYLPREDNISOLONE SOD SUCC 125mg/2ml INJECTION IVP SCH ×2 (03:10→08:53)
[2017-10-07] MEDS: ALBUTEROL/IPRATROPIUM 2.5mg-0.5mg/3ml NEB AEROSOL SCH ×6 (03:42→22:34)
[2017-10-07] MEDS: LEVOFLOXACIN 750 MG TABLET PO SCH (06:00)
[2017-10-07] MEDS: PANTOPRAZOLE 40 MG TABLET PO SCH (06:17)
[2017-10-07] MEDS: BUDESONIDE INH.SOLN 0.5mg/2ml NEB AEROSOL SCH ×2 (07:33→19:10)
[2017-10-07] MEDS: BUMETANIDE 0.5 MG TABLET PO SCH ×2 (08:53→14:10)
[2017-10-07] MEDS: INSULIN REGULAR, HUMAN 100 UNIT/ML INJECTION SQ PRN (11:27)
--- NOTE | 2017-10-07 13:43 | Pulmonology Progress Note ---
Subjective Principal diagnosis: COPD exacerbation Interval history: on and off BIPAP. she has non-invasive mask ventilation at home and uses it occasionally during the day. Thinks she is improving but still no back to baseline. No sputum production Exam Vital signs: Temperature 97.7 F 10/07/17 08:00 Pulse Rate 88 10/07/17 08:00 Respiratory Rate 15 10/07/17 10:49 Blood Pressure 159/101 H 10/07/17 08:00 Pulse Oximetry 95 10/07/17 10:49 Inpatient Medications: Generic Name Dose Route Start Last Admin Trade Name Freq PRN Reason Stop Dose Admin Acetaminophen 650 mg 10/01/17 13:56 Tylenol Supp NH Q5H PRN Pain Acetaminophen 650 mg 10/03/17 14:36 10/04/17 17:16 Tylenol PO 650 mg Q5H PRN Administration Discomfort Albuterol/Ipratropium 3 ml 10/01/17 13:56 Duoneb AEROSOL Q4HR PRN Shortness of air Albuterol/Ipratropium 3 ml 10/03/17 12:00 10/07/17 10:48 Duoneb AEROSOL 3 ml Q4HR TESSIE Administration Bisacodyl 10 mg 10/02/17 14:37 Dulcolax RECTALLY DAILY PRN Constipation Budesonide 0.5 mg 10/01/17 19:00 10/07/17 07:33 Pulmicort Inhalation AEROSOL 0.5 mg RTBID TESSIE Administration Bumetanide 0.5 mg 10/07/17 09:00 10/07/17 08:53 Bumex 0.5 Mg Tab PO 0.5 mg [id number] TESSIE Administration Insulin Human Regular 2 - 8 unit 10/01/17 15:08 10/07/17 11:27 Novolin R SQ 2 unit SS PRN Administration Hyperglycemia Protocol Levofloxacin 750 mg 10/06/17 06:30 10/07/17 06:00 Levaquin PO 750 mg ACB TESSIE Administration Lorazepam 1 mg 10/02/17 14:40 10/07/17 08:48 Ativan Inj IVP 1 mg Q4H PRN Administration Agitation/Air hunger/Pain Magnesium Hydroxide 30 ml 10/02/17 14:37 Mom PO DAILY PRN Constipation Methylprednisolone Sodium Succinate 62.5 mg 10/02/17 15:00 10/07/17 08:53 Solu-Medrol IVP 62.5 mg Q6HR TESSIE Administration Ondansetron HCl 4 mg 10/01/17 13:56 Zofran IVP Q6H PRN Nausea Pantoprazole Sodium 40 mg 10/04/17 06:30 10/07/17 06:17 Protonix Tab PO 40 mg ACB TESSIE Administration Polyethylene Glycol 17 gm 10/02/17 14:38 Miralax PO DAILY PRN Constipation Potassium Chloride 20 meq 10/02/17 17:30 10/07/17 08:53 Micro-K 10 Meq Capsule PO 20 meq BIDWM TESSIE Administration Sodium Chloride 10 - 80 ml 10/01/17 12:46 10/07/17 03:10 Iv Flush IVF 10 ml PRN PRN Administration Flushing Sodium Chloride 500 ml 10/04/17 14:26 10/04/17 14:28 Normal Saline IV 500 ml PRN PRN Administration Sodium Chloride 1 spray 10/06/17 11:34 [place] Nasal Moisturizing [place] EA NOSTRIL PRN PRN Congestion Discontinued Medications Generic Name Dose Route Start Last Admin Trade Name Freq PRN Reason Stop Dose Admin Albuterol/Ipratropium 3 ml 10/01/17 12:46 10/01/17 13:02 Duoneb IH 10/01/17 12:47 3 ml ONCE ONE Administration Albuterol/Ipratropium 3 ml 10/01/17 15:00 10/06/17 23:22 Duoneb AEROSOL Not Given Q6HR TESSIE Azithromycin 500 mg 10/05/17 06:30 10/05/17 05:36 Zithromax PO 500 mg ACB TESSIE Administration Bumetanide 1 mg 10/03/17 09:00 10/05/17 13:55 Bumex 1 Mg Tab PO 1 mg [id number] TESSIE Administration Bumetanide 0.5 mg 10/06/17 09:00 10/06/17 14:09 Bumex 1 Mg Tab PO 0.5 mg [id number] TESSIE Administration Sodium Chloride 1,000 mls @ 999.9 mls/hr 10/01/17 13:26 10/01/17 23:05 Normal Saline IV 10/01/17 14:25 Not Given .Q1H ONE Ceftriaxone Sodium 1 g/ Sodium 100 mls @ 200 mls/hr 10/01/17 13:45 10/05/17 14:55 Chloride IV Infused Q24H TESSIE Infusion Azithromycin 500 mg/ Sodium 250 mls @ 167 mls/hr 10/01/17 13:56 10/04/17 16: 58 Chloride IV Infused Q24H TESSIE Infusion Sodium Chloride 1,000 mls @ 100 mls/hr 10/01/17 13:56 10/02/17 17:00 Normal Saline IV 100 mls/hr .Q10H TESSIE Infusion Propofol 1,000 mg in 100 mls @ 1.569 mls/hr 10/01/17 14:34 10/02/17 14:00 Diprivan IV 0 mcg/kg/min .Q24H PRN 0 mls/hr Protocol Infusion 5 MCG/KG/MIN Sodium Chloride 500 mls @ 999.9 mls/hr 10/01/17 18:30 10/01/17 18:35 Normal Saline IV 10/01/17 18:59 Not Given .Q30M TESSIE Lorazepam 0.5 mg 10/01/17 13:56 10/02/17 21:03 Ativan Inj IVP 0.5 mg Q4H PRN Administration Anxiety/Air hunger/Agitation Methylprednisolone Sodium Succinate 125 mg 10/01/17 15:00 10/02/17 14:28 Solu-Medrol IVP 125 mg Q6HR TESSIE Administration Midazolam HCl 5 mg 10/01/17 12:48 10/01/17 13:17 Versed IVP 10/01/17 12:49 5 mg O ONE Administration Midazolam HCl 5 mg 10/01/17 13:14 10/01/17 13:21 Versed IVP 10/01/17 13:15 5 mg O ONE Administration Pantoprazole Sodium 40 mg 10/02/17 10:45 10/03/17 09:22 Protonix Iv IVP 40 mg DAILY TESSIE Administration Pharmacy Consult 1 each 10/02/17 15:36 Pharmacy Consult - Fall Risk [facility] 10/02/17 15:37 ONE TIME ONE Succinylcholine Chloride 100 mg 10/01/17 12:49 10/01/17 13:23 Quelicin IVP 10/01/17 12:50 100 mg O ONE Administration - Constitutional no acute distress - Routine HEENT Exam Head: Present: normocephalic - Routine Neck Exam Present: supple, full ROM - Routine Respiratory Exam Present: accessory muscle use, decreased breath sounds, prolonged expiratory phase - Routine Cardiovascular Exam Present: RRR - Routine Abdominal Exam Present: soft. Absent: guarding - Urinary Catheter Management Urethral Cath placed during this visit: yes, but has since been removed by the nurse Urethral indwelling: Yes Insertion date: 10/01/17 Removal date: 10/06/17 Removal time: 15:00 Results - Laboratory Findings Laboratory: Laboratory Results - last 48 hr 10/05/17 10/05/17 10/06/17 15:02 20:25 06:12 Turbidity Sodium Potassium Chloride Carbon Dioxide Anion Gap BUN Creatinine GFR Calculation BUN/Creatinine Ratio Glucose Glucometer 185 140 105 Calculated Osmolality Calcium Magnesium Icterus Index Specimen Hemolysis 10/06/17 10/06/17 10/06/17 10:32 15:28 21:49 Turbidity Sodium Potassium Chloride Carbon Dioxide Anion Gap BUN Creatinine GFR Calculation BUN/Creatinine Ratio Glucose Glucometer 124 268 123 Calculated Osmolality Calcium Magnesium Icterus Index Specimen Hemolysis 10/07/17 10/07/17 10/07/17 03:52 06:16 11:15 Turbidity < 20 Sodium 140 Potassium 3.7 Chloride 84 L Carbon Dioxide 52 H* Anion Gap 4 L BUN 32.0 H Creatinine 0.4 L GFR Calculation 155 BUN/Creatinine Ratio 80 H Glucose 113 H Glucometer 102 178 Calculated Osmolality 277 Calcium 8.5 Magnesium 2.2 Icterus Index < 2 Specimen Hemolysis < 15 - Diagnostic Findings Chest x-ray: report reviewed Assessment and Plan (1) Acute exacerbation of chronic obstructive airways disease Status: Acute Assessment and plan: slowly improving. Still requiring NIPPV quite a bit. Back on solumedrol 62.5 mg IV q6 hours O2 to keep sat >90% Neb albuterol/iprat q4h, budesonide BID Current Visit: Yes (2) Acute and chronic respiratory failure with hypercapnia Status: Acute Current Visit: No (3) Pneumothorax Status: Acute Assessment and plan: chest tube removed. cxr stable. Current Visit: Yes - Assessment and Plan Acute on Chronic Hypoxic Respiratory Failure COPD exacerbation Right Pneumothorax Chronic Diastolic Heart Failure - Time Spent With Patient Total time spent is greater than 50% in coordination of care (as documented) at patient's floor/unit and/or counseling patient: less than 15 minutes
--- NOTE | 2017-10-07 14:32 | Progress Note ---
- Date 10/07/17 Subjective: Judie is a 76 yr old female with a known history of COPD and emphysema. She chronically uses 5 liters of oxygen by nasal cannula. It is reported that patient had about a 2 day history of increasing dyspnea. Patient was seen by home health on the morning of admission who felt she was in severe respiratory distress with saturations in the 60s. EMS was contacted. Patient was transported to the emergency room for further evaluation and treatment. Upon arrival, she continued to be hypoxic in the 70s despite oxygenation. Given the severity of her respiratory distress. Patient was rapid sequence intubated while in the emergency room. All collateral information is obtained from daughter at the bedside as patient is intubated and unable to respond verbally. Daughter reports that patient's chronic lung disease has continued to worsen to the point that she is unable to even do activities of daily living. She also notes that patient will often "skip " Lasix dosing as it is too much work for her to get up and go to the bathroom. She is on continuous 5 liters of oxygen at home. We did discuss in great detail regarding advanced directive wishes. Daughter does note that patient's quality of life has continued to decline and she would not want to be on the ventilator long-term. She is in agreement to keep her intubated in the short time while we attempt to improve patient with medications, ventilation, and rest. At this point, we will keep patient a full code. However, daughter may want to revisit this decision over the next several days. Patient was found to have a pneumothorax on the right. Dr. Walton was consulted and placed a chest tube into the right chest. He pneumothorax resolved and the chest tube was able to be taken out on 10/05/2017. The patient continues to require 5 to 6 L of oxygen by nasal cannula during the day. She is utilizing BiPAP periodically at night. She didn't not tolerate it very well last evening. When seen this morning she continues to report weakness. She thinks her breathing is at baseline but she is still requiring 6 L and I believe her baseline at home was 5 L. She has not been using the BiPAP like she supposed to. She did not wear did all last night. She feels as though she's getting more edema since I decreased her bumex. We will see if getting her on the BiPAP more frequently will help with this otherwise will have to go back up to the 1 mg twice daily. She needs to be ambulating more and may even benefit from a short stay in IRU. She denies feeling any fever or chills. She denies any cough or sputum production. She denies any chest pain or palpitations. She denies any nausea or vomiting. She tells me her bowels are working fine and there is documented stool from yesterday and again this morning. She does tell me that she is eating fine. Objective Vital signs: Temperature 97.7 F 10/07/17 08:00 Pulse Rate 88 10/07/17 08:00 Respiratory Rate 15 10/07/17 10:49 Blood Pressure 159/101 H 10/07/17 08:00 Pulse Oximetry 95 10/07/17 10:49 Height/Weight/BMI: Height 1.55 m Weight 52.1 kg Body Mass Index 20.2 Comments: Gen: alert and oriented. NAD Skin: warm and dry HEENT: NC/AT PERRL, EOMI, Sclera, lids and conjunctiva wnl, MMM, OP clear Neck: supple. No JVD, Carotids 2+ without bruits. Lungs: difficult to hear any breath sounds even at the apex. Soft expiratory wheeze CV: regular. soft murmur Abd: soft. NT/ND, +BS MS: No edema. Good strength and ROM. Neuro: No focal deficit Psy: normal mood and affect Results - Labs CBC & Chem 7: 10/05/17 04:23 10/07/17 03:52 Assessment and Plan (1) Acute and chronic respiratory failure with hypercapnia Current visit: No Status: Acute Assessment and Plan: Impression/Plan Acute on chronic respiratory failure with hypercapnia -Dr. Walton consulted, appreciate his assistance -continues on methylprednisolone 62.5 mg IV Q6 hours-will try switching to a PO prednisone taper. -Previously on ceftriaxone and azithromycin for presumed pneumonia, she did have a positive sputum culture with Stenotrophomonas maltophilia that is sensitive to levaquin -now on Levaquin Right pneumothorax (POA) - s/p chest tube placement. 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 Elevated LFTs (POA) -resolved History of tobacco use-quit 2004 Anxiety -on Ativan 1 mg Q4 hours PRN gastroesophageal reflux disease -on proton pump inhibitor weakness and debility -physical therapy is working with her disposition -hopefully home soon but may need IRU briefly for strengthening. - Physician Narrative Narrative: Date: 10/07/17 Time: 1429 Hospital Course Summary Disclaimer: The visit summary below is not to be considered part of the above Progress Note. Hospital Course: 10/01/17 Admission Admit patient to CCU as a inpatient under the care of Dr Pretty. Currently on ventilator due to severity of respiratory distress. Propofol drip for sedation. Consultation placed with Dr. Walotn for his pulmonary expertise and guidance. Will start patient on IV Rocephin and azithromycin for empiric antimicrobial pulmonary coverage. It is reported that patient does take Zithromax 3 times a week for pulmonary prophylaxis. Schedule DuoNeb neb and Pulmicort breathing treatments. Will obtain sputum culture via suctioning. Normal saline at 100 mL per hour for gentle hydration, monitor for evidence of fluid overload. Patient does chronically take Bumex 1 milligram twice a day and may require diuresing. Solu-Medrol 125 milligrams IV every etc. hours for pulmonary inflammation. Given history of COPD. Ativan as needed for anxiety. Patient does use Xanax at home. Daughter notes she may be using more and more given the severity of her respiratory effort. SCDs for DVT prophylaxis Recheck CBC and CMP tomorrow to follow blood counts, renal function, electrolytes and liver function. Full code is ordered as per Daughter at time of admission At time of discharge medical care will return to PCP, Dr Colunga 10/02/17 Chest tube placed by Dr Walton for decompression of pneumothorax. Able to be extubated and placed on BiPAP this afternoon. Will continue Rocephin and azithromycin for antimicrobial coverage. Decreased Solu-Medrol to 62.5mg IV q 6 hr; continue breathing treatments. Can discontinue IVF and advance diet to regular. Start potassium 20mEg BIDWM as potassium low (home dose 10 Jun). Will restart home Bumex tomorrow. Recheck CXR, BMP, and CBC along with magnesium in am. Continue CCU care and monitoring, possible transfer to floor tomorrow if continues to do well. 10/03/17 CXR showing stability - no infiltrate, pneumothorax resolved with chest tube. Respiratory distress decreasing - Maintaining saturation on O2. Did tolerate BiPAP overnight. Oral drive improving. Continue ceftriaxone and azithromycin for pulmonary coverage. Will continue Solu -Medrol and neb treatments. Add acapella to help decrease congestion. Blood sugars stable - continue monitoring and ISS due to steroid use. PT/OT eval due to underlying pulmonary debility and acute gen debility from this acute illness. Bladder retraining - likely can discontinue Schroeder in near future. Medically stable for transfer to medical floor to continue care. 10/04 Continue with Bi-pap and oxygen. Right chest tube remains intact- CXR today revels no pneumothorax Continues small bilateral pleural effusions Remains on scheduled Bumex BID. Continued scheduled Nebs. Appreciate Dr Walton expertise Continue ceftriaxone and azithromycin for pulmonary coverage. PT/OT evaluation- She likely has significant pulmonary debility however does live at home alone Case discussed with attending
[2017-10-08] MEDS: ALBUTEROL/IPRATROPIUM 2.5mg-0.5mg/3ml NEB AEROSOL SCH ×6 (03:08→22:32)
[2017-10-08] MEDS: PANTOPRAZOLE 40 MG TABLET PO SCH (06:10)
[2017-10-08] MEDS: BUDESONIDE INH.SOLN 0.5mg/2ml NEB AEROSOL SCH ×2 (07:05→19:14)
--- NOTE | 2017-10-08 08:37 | XRay Report ---
LOCATION OF DICTATION: [facility] EXAM: XR chest 2V HISTORY: hypoxia COMPARISON: October 05, 2017. FINDINGS: Hyperexpanded lungs suggesting air trapping/COPD. Blunting of the costophrenic angles bilaterally may reflect pleural thickening or small effusions and appears similar to the previous study. There is no pneumothorax. The heart is mildly enlarged. Left-sided PICC line is in stable position. Mild osteoarthrosis of the bilateral shoulder joints. IMPRESSION: 1. Hyperexpanded lungs suggesting air trapping/COPD 2. Blunting the costal phrenic angles may reflect pleural thickening or small effusions. 3. Mild cardiomegaly megaly without overt CHF. .
[2017-10-08] MEDS: PredniSONE 20 MG TABLET PO SCH (08:41)
[2017-10-08] MEDS: BUMETANIDE 0.5 MG TABLET PO SCH ×2 (08:41→13:20)
--- NOTE | 2017-10-08 13:25 | Progress Note ---
- Date 10/08/17 Subjective: F/U: Acute on chronic respiratory failure. Rough morning-sats decreased on O2--needing BiPAP to help respiratory status. Feeling better this afternoon-maintaining on O2, but still displaying work of breathing at rest. Eating well-no nausea or ab pain. Bowels moving. Very weak in general. Patient reports is 'determined to get better.' Objective Vital signs: Temperature 98.6 F 10/08/17 07:29 Pulse Rate 99 10/08/17 08:00 Respiratory Rate 14 10/08/17 11:00 Blood Pressure 148/89 H 10/08/17 07:29 Pulse Oximetry 90 10/08/17 13:21 Height/Weight/BMI: Height 1.55 m Weight 52.8 kg Body Mass Index 20.2 - Constitutional Present: moderate distress, well nourished, well developed, average body habitus , cooperative. Absent: agitated, somnolent, obtunded - Routine HEENT Exam Head: Present: normocephalic, atraumatic Eye: Present: EOMI, PERRL ENT: Present: mucous membranes moist - Routine Respiratory Exam Present: decreased breath sounds, respiratory distress, distant breath sounds, diminished air movement. Absent: rales, rhonchi, wheezes, crackles - Routine Cardiovascular Exam Present: RRR, no murmur - Routine Abdominal Exam Present: soft, normoactive bowel sounds, non distended, non tender - Routine Extremities Exam Present: no edema, pulses intact. Absent: cyanosis, clubbing - Routine Musculoskeletal Exam Musculoskeletal: Present: no clubbing or cyanosis - Routine Skin Exam Present: dry, warm - Routine Neurological Exam Present: alert, oriented X3, CN II-XII intact, moving all extremities, vision grossly intact, hearing grossly intact, normal speech. Absent: altered mental status - Routine Psychiatric Exam Present: normal affect, cooperative Results - Labs CBC & Chem 7: 10/08/17 04:00 10/08/17 04:00 Assessment and Plan (1) Acute and chronic respiratory failure with hypercapnia Current visit: No Status: Acute Assessment and Plan: Impression Acute on chronic respiratory failure with hypercapnia - home O2 at 5L and has home vent Acute exacerbation of COPD - Positive sputum culture with Stenotrophomonas maltophilia, likely causative agent Right pneumothorax (POA) - s/p chest tube placement -Chest tube removed 10/05 Severe COPD/Emphysema Severe respiratory distress - intubated 10/01, extubated 10/02 Pulmonary debility -severe Chronic diastolic heart failure Elevated LFTs (POA) - resolved History of tobacco use-quit 2004 Anxiety Gastroesophageal Reflux Disease Plan Will continue with levofloxacin and Prednisone for respiratory treatment. Stress importance of BiPAP use to help breathing - strongly encouraged to use routinely all night. Needs to use during day if respiratory status worsens to help improve gas exchange and decrease work of breathing. As patient feels she is 'determined' to get better, did stress the critical need to work with therapy to help improve functional status. Would recommend starting with light activities - bed exercises, sitting on edge of bed. Increasing to transfers as able. Advised will be very hard/difficult work. Gains made will be slow. Wanting to return to home living - discussed how gains need to be made before that can be a reality. Will have CM set up Hospice informational meeting with [facility]. Patient at end stage of COPD/Emphysema and do feel hospice care will be needed in near future. Discussed case with patient, her home caregiver, and patient's daughter at length. Case discussed with CM, pt's home caregiver and daughter. Time spent with patient care 35 minutes. DVT Prophylaxis: SCD's GI Prophylaxis: Protonix Resuscitation Status: Full Code - Time spent with patient Time with patient PN: 35 minutes Coordination of Care: >50% of visit spent providing counseling/coordination of care - Physician Narrative Physician: Delano Pretty MD Narrative: Date: 10/08/17 Time: 1322 Hospital Course Summary Disclaimer: The visit summary below is not to be considered part of the above Progress Note. Hospital Course: 10/01/17 Admission Admit patient to CCU as a inpatient under the care of Dr Pretty. Currently on ventilator due to severity of respiratory distress. Propofol drip for sedation. Consultation placed with Dr. Walton for his pulmonary expertise and guidance. Will start patient on IV Rocephin and azithromycin for empiric antimicrobial pulmonary coverage. It is reported that patient does take Zithromax 3 times a week for pulmonary prophylaxis. Schedule DuoNeb neb and Pulmicort breathing treatments. Will obtain sputum culture via suctioning. Normal saline at 100 mL per hour for gentle hydration, monitor for evidence of fluid overload. Patient does chronically take Bumex 1 milligram twice a day and may require diuresing. Solu-Medrol 125 milligrams IV every etc. hours for pulmonary inflammation. Given history of COPD. Ativan as needed for anxiety. Patient does use Xanax at home. Daughter notes she may be using more and more given the severity of her respiratory effort. SCDs for DVT prophylaxis Recheck CBC and CMP tomorrow to follow blood counts, renal function, electrolytes and liver function. Full code is ordered as per Daughter at time of admission At time of discharge medical care will return to PCP, Dr Colunga 10/02/17 Chest tube placed by Dr Walton for decompression of pneumothorax. Able to be extubated and placed on BiPAP this afternoon. Will continue Rocephin and azithromycin for antimicrobial coverage. Decreased Solu-Medrol to 62.5mg IV q 6 hr; continue breathing treatments. Can discontinue IVF and advance diet to regular. Start potassium 20mEg BIDWM as potassium low (home dose 10 Jun). Will restart home Bumex tomorrow. Recheck CXR, BMP, and CBC along with magnesium in am. Continue CCU care and monitoring, possible transfer to floor tomorrow if continues to do well. 10/03/17 CXR showing stability - no infiltrate, pneumothorax resolved with chest tube. Respiratory distress decreasing - Maintaining saturation on O2. Did tolerate BiPAP overnight. Oral drive improving. Continue ceftriaxone and azithromycin for pulmonary coverage. Will continue Solu -Medrol and neb treatments. Add acapella to help decrease congestion. Blood sugars stable - continue monitoring and ISS due to steroid use. PT/OT eval due to underlying pulmonary debility and acute gen debility from this acute illness. Bladder retraining - likely can discontinue Schroeder in near future. Medically stable for transfer to medical floor to continue care. 10/04/17 Continue with Bi-pap and oxygen. Right chest tube remains intact - CXR today revels no pneumothorax. Continues small bilateral pleural effusions. Remains on scheduled Bumex BID. Continued scheduled Nebs. Appreciate Dr Walton expertise. Continue ceftriaxone and azithromycin for pulmonary coverage. PT/OT evaluation- She likely has significant pulmonary debility however does live at home alone. 10/05/17 Positive sputum culture with Stenotrophomonas maltophilia that is sensitive to levaquin, will switch to po Levaquin to complete antibiotic course. CXR today without PTX and no air leak, will pull R CT and check CXR in 4 hrs. 10/06/17 The chest tube has been removed and subsequent chest x-ray shows no recurrent pneumothorax. Bumex decreased to 0.5 mg twice a day. Will DC Schroeder. 10/07/17 Continues on methylprednisolone 62.5 mg IV Q6 hours-will try switching to a PO prednisone taper. 10/08/17 Will continue with levofloxacin and Prednisone 60mg dialy for respiratory treatment. Stress importance of BiPAP use to help breathing - strongly encouraged to use routinely all night. Needs to use during day if respiratory status worsens to help improve gas exchange and decrease work of breathing. As patient feels she is 'determined' to get better, did stress the critical need to work with therapy to help improve functional status. Would recommend starting with light activities - bed exercises, sitting on edge of bed. Increasing to transfers as able. Advised will be very hard/difficult work. Gains made will be slow. Wanting to return to home living - discussed how gains need to be made before that can be a reality. Will have set up Hospice informational meeting with [facility]. Patient at end stage of COPD/Emphysema and do feel hospice care will be needed in near future. Discussed case with patient, her home caregiver, and patient's daughter at length.
[2017-10-08] MEDS: INSULIN REGULAR, HUMAN 100 UNIT/ML INJECTION SQ PRN (14:18)
--- NOTE | 2017-10-08 15:32 | Pulmonology Progress Note ---
Subjective Principal diagnosis: COPD exacerbation Interval history: Pt in bed, states she is doing ok, has good and bad days but not back to normal. Stable SOB, slight cough and sputum noted. Exam Vital signs: Temperature 98.6 F 10/08/17 07:29 Pulse Rate 99 10/08/17 08:00 Respiratory Rate 24 10/08/17 14:51 Blood Pressure 148/89 H 10/08/17 07:29 Pulse Oximetry 91 10/08/17 14:51 Inpatient Medications: Generic Name Dose Route Start Last Admin Trade Name Freq PRN Reason Stop Dose Admin Acetaminophen 650 mg 10/01/17 13:56 Tylenol Supp NV Q5H PRN Pain Acetaminophen 650 mg 10/03/17 14:36 10/04/17 17:16 Tylenol PO 650 mg Q5H PRN Administration Discomfort Albuterol/Ipratropium 3 ml 10/01/17 13:56 Duoneb AEROSOL Q4HR PRN Shortness of air Albuterol/Ipratropium 3 ml 10/03/17 12:00 10/08/17 14:48 Duoneb AEROSOL 3 ml Q4HR TESSIE Administration Bisacodyl 10 mg 10/02/17 14:37 Dulcolax RECTALLY DAILY PRN Constipation Budesonide 0.5 mg 10/01/17 19:00 10/08/17 07:05 Pulmicort Inhalation AEROSOL 0.5 mg RTBID TESSIE Administration Bumetanide 0.5 mg 10/07/17 09:00 10/08/17 13:20 Bumex 0.5 Mg Tab PO 0.5 mg [id number] TSESIE Administration Insulin Human Regular 2 - 8 unit 10/01/17 15:08 10/08/17 14:18 Novolin R SQ 2 unit SS PRN Administration Hyperglycemia Protocol Levofloxacin 750 mg 10/09/17 06:30 Levaquin PO Q2D@0630 TESSIE Lorazepam 1 mg 10/02/17 14:40 10/08/17 10:34 Ativan Inj IVP 1 mg Q4H PRN Administration Agitation/Air hunger/Pain Magnesium Hydroxide 30 ml 10/02/17 14:37 Mom PO DAILY PRN Constipation Ondansetron HCl 4 mg 10/01/17 13:56 Zofran IVP Q6H PRN Nausea Pantoprazole Sodium 40 mg 10/04/17 06:30 10/08/17 06:10 Protonix Tab PO 40 mg ACB TESSIE Administration Polyethylene Glycol 17 gm 10/02/17 14:38 Miralax PO DAILY PRN Constipation Potassium Chloride 20 meq 10/02/17 17:30 10/08/17 08:41 Micro-K 10 Meq Capsule PO 20 meq BIDWM TESSIE Administration Prednisone 60 mg 10/08/17 08:00 10/08/17 08:41 Deltasone 20 Mg PO 60 mg WB TESSIE Administration Sodium Chloride 10 - 80 ml 10/01/17 12:46 10/07/17 03:10 Iv Flush IVF 10 ml PRN PRN Administration Flushing Sodium Chloride 500 ml 10/04/17 14:26 10/04/17 14:28 Normal Saline IV 500 ml PRN PRN Administration Sodium Chloride 1 spray 10/06/17 11:34 [place] Nasal Moisturizing [place] EA NOSTRIL PRN PRN Congestion Discontinued Medications Generic Name Dose Route Start Last Admin Trade Name Freq PRN Reason Stop Dose Admin Albuterol/Ipratropium 3 ml 10/01/17 12:46 10/01/17 13:02 Duoneb IH 10/01/17 12:47 3 ml ONCE ONE Administration Albuterol/Ipratropium 3 ml 10/01/17 15:00 10/06/17 23:22 Duoneb AEROSOL Not Given Q6HR TESSIE Azithromycin 500 mg 10/05/17 06:30 10/05/17 05:36 Zithromax PO 500 mg ACB TESSIE Administration Bumetanide 1 mg 10/03/17 09:00 10/05/17 13:55 Bumex 1 Mg Tab PO 1 mg [id number] TESSIE Administration Bumetanide 0.5 mg 10/06/17 09:00 10/06/17 14:09 Bumex 1 Mg Tab PO 0.5 mg [id number] TESSIE Administration Sodium Chloride 1,000 mls @ 999.9 mls/hr 10/01/17 13:26 10/01/17 23:05 Normal Saline IV 10/01/17 14:25 Not Given .Q1H ONE Ceftriaxone Sodium 1 g/ Sodium 100 mls @ 200 mls/hr 10/01/17 13:45 10/05/17 14:55 Chloride IV Infused Q24H TESSIE Infusion Azithromycin 500 mg/ Sodium 250 mls @ 167 mls/hr 10/01/17 13:56 10/04/17 16: 58 Chloride IV Infused Q24H TESSIE Infusion Sodium Chloride 1,000 mls @ 100 mls/hr 10/01/17 13:56 10/02/17 17:00 Normal Saline IV 100 mls/hr .Q10H TESSIE Infusion Propofol 1,000 mg in 100 mls @ 1.569 mls/hr 10/01/17 14:34 10/02/17 14:00 Diprivan IV 0 mcg/kg/min .Q24H PRN 0 mls/hr Protocol Infusion 5 MCG/KG/MIN Sodium Chloride 500 mls @ 999.9 mls/hr 10/01/17 18:30 10/01/17 18:35 Normal Saline IV 10/01/17 18:59 Not Given .Q30M TESSIE Levofloxacin 750 mg 10/06/17 06:30 10/07/17 06:00 Levaquin PO 750 mg ACB TESSIE Administration Lorazepam 0.5 mg 10/01/17 13:56 10/02/17 21:03 Ativan Inj IVP 0.5 mg Q4H PRN Administration Anxiety/Air hunger/Agitation Methylprednisolone Sodium Succinate 125 mg 10/01/17 15:00 10/02/17 14:28 Solu-Medrol IVP 125 mg Q6HR TESSIE Administration Methylprednisolone Sodium Succinate 62.5 mg 10/02/17 15:00 10/07/17 08:53 Solu-Medrol IVP 62.5 mg Q6HR TESSIE Administration Midazolam HCl 5 mg 10/01/17 12:48 10/01/17 13:17 Versed IVP 10/01/17 12:49 5 mg O ONE Administration Midazolam HCl 5 mg 10/01/17 13:14 10/01/17 13:21 Versed IVP 10/01/17 13:15 5 mg O ONE Administration Pantoprazole Sodium 40 mg 10/02/17 10:45 10/03/17 09:22 Protonix Iv IVP 40 mg DAILY TESSIE Administration Pharmacy Consult 1 each 10/02/17 15:36 Pharmacy Consult - Fall Risk 10/02/17 15:37 ONE TIME ONE Succinylcholine Chloride 100 mg 10/01/17 12:49 10/01/17 13:23 Quelicin IVP 10/01/17 12:50 100 mg O ONE Administration - Constitutional mild distress, thin, cooperative - Routine HEENT Exam Head: Present: normocephalic, atraumatic Eye: Present: EOMI, PERRL ENT: Present: mucous membranes moist - Routine Neck Exam Present: supple, full ROM, trachea midline - Routine Respiratory Exam Present: decreased breath sounds. Absent: patient mechanically ventilated, rhonchi, wheezes - Routine Cardiovascular Exam Present: RRR, S1, S2, no murmur - Routine Abdominal Exam Present: soft, normoactive bowel sounds - Routine Extremities Exam Present: non tender, full ROM. Absent: cyanosis, clubbing - Routine Back/Spine/Pelvis Exam Back/Spine: Present: full ROM - Routine Skin Exam Present: intact, dry - Routine Neurological Exam Present: alert, oriented X3, CN II-XII intact - Routine Psychiatric Exam Present: normal affect, normal thought process - Urinary Catheter Management Urethral Cath placed during this visit: yes, but has since been removed by the nurse Urethral indwelling: Yes Reason for continuing: Accurate I&O/Aggressive Diuresis Insertion date: 10/01/17 Removal date: 10/06/17 Removal time: 15:00 Results - Laboratory Findings Laboratory: Laboratory Results - last 48 hr 10/06/17 10/06/17 10/06/17 10:32 15:28 21:49 WBC RBC Hgb Hct MCV MCH MCHC RDW Std Deviation Plt Count MPV Immature Gran % (Auto) Neut % (Auto) Lymph % (Auto) Orange % (Auto) Eos % (Auto) Baso % (Auto) Neut # (Auto) Lymph # (Auto) Orange # (Auto) Eos # (Auto) Baso # (Auto) Abs Immat Gran (auto) Turbidity Sodium Potassium Chloride Carbon Dioxide Anion Gap BUN Creatinine GFR Calculation BUN/Creatinine Ratio Glucose Glucometer 124 268 123 Calculated Osmolality Calcium Magnesium Icterus Index Specimen Hemolysis 10/07/17 10/07/17 10/07/17 03:52 06:16 11:15 WBC RBC Hgb Hct MCV MCH MCHC RDW Std Deviation Plt Count MPV Immature Gran % (Auto) Neut % (Auto) Lymph % (Auto) Orange % (Auto) Eos % (Auto) Baso % (Auto) Neut # (Auto) Lymph # (Auto) Orange # (Auto) Eos # (Auto) Baso # (Auto) Abs Immat Gran (auto) Turbidity < 20 Sodium 140 Potassium 3.7 Chloride 84 L Carbon Dioxide 52 H* Anion Gap 4 L BUN 32.0 H Creatinine 0.4 L GFR Calculation 155 BUN/Creatinine Ratio 80 H Glucose 113 H Glucometer 102 178 Calculated Osmolality 277 Calcium 8.5 Magnesium 2.2 Icterus Index < 2 Specimen Hemolysis < 15 10/07/17 10/07/17 10/08/17 15:13 20:23 04:00 WBC 11.3 H RBC 4.45 Hgb 12.0 Hct 40.9 MCV 91.9 MCH 27.0 MCHC 29.3 L RDW Std Deviation 49.3 Plt Count 166 MPV 12.1 Immature Gran % (Auto) 0.3 Neut % (Auto) 84.3 H Lymph % (Auto) 6.7 L Orange % (Auto) 8.7 Eos % (Auto) 0.0 Baso % (Auto) 0.0 Neut # (Auto) 9.5 H Lymph # (Auto) 0.8 L Orange # (Auto) 1.0 H Eos # (Auto) 0.0 Baso # (Auto) 0.0 Abs Immat Gran (auto) 0.03 Turbidity Sodium Potassium Chloride Carbon Dioxide Anion Gap BUN Creatinine GFR Calculation BUN/Creatinine Ratio Glucose Glucometer 134 130 Calculated Osmolality Calcium Magnesium Icterus Index Specimen Hemolysis 10/08/17 10/08/17 10/08/17 04:00 06:13 10:01 WBC RBC Hgb Hct MCV MCH MCHC RDW Std Deviation Plt Count MPV Immature Gran % (Auto) Neut % (Auto) Lymph % (Auto) Orange % (Auto) Eos % (Auto) Baso % (Auto) Neut # (Auto) Lymph # (Auto) Orange # (Auto) Eos # (Auto) Baso # (Auto) Abs Immat Gran (auto) Turbidity < 20 Sodium 140 Potassium 3.9 Chloride 86 L Carbon Dioxide 53 H* Anion Gap 1 L BUN 28.0 H Creatinine 0.4 L GFR Calculation 155 BUN/Creatinine Ratio 70 H Glucose 85 Glucometer 74 111 Calculated Osmolality 274 Calcium 8.4 Magnesium Icterus Index < 2 Specimen Hemolysis < 15 10/08/17 14:04 WBC RBC Hgb Hct MCV MCH MCHC RDW Std Deviation Plt Count MPV Immature Gran % (Auto) Neut % (Auto) Lymph % (Auto) Orange % (Auto) Eos % (Auto) Baso % (Auto) Neut # (Auto) Lymph # (Auto) Orange # (Auto) Eos # (Auto) Baso # (Auto) Abs Immat Gran (auto) Turbidity Sodium Potassium Chloride Carbon Dioxide Anion Gap BUN Creatinine GFR Calculation BUN/Creatinine Ratio Glucose Glucometer 178 Calculated Osmolality Calcium Magnesium Icterus Index Specimen Hemolysis - Diagnostic Findings Chest x-ray: image reviewed (stable, no PTX) Assessment and Plan - Assessment and Plan Acute on Chronic Hypoxic Respiratory Failure COPD exacerbation Right Pneumothorax Chronic Diastolic Heart Failure Plan: Pt currently on 6L per NC, on 5L at home, chacho. Used the bipap yestrday some but not last night. Encouraged use qHs and prn days f12, 15/5. Cont on BT's with pulmicort BID, a/a q4hr with now prednisone and wean as chacho. S/P azithro/ rocephin for COPD exacerbation on Levaquin. CXR today without PTX and stable. PT to eval today, likely needs rehab prior to going home. - Time Spent With Patient Total time spent is greater than 50% in coordination of care (as documented) at patient's floor/unit and/or counseling patient: less than 15 minutes
[2017-10-08] MEDS: SALINE FLUSH 10ml SYRINGE IVF PRN (18:00)
[2017-10-09] MEDS: ALBUTEROL/IPRATROPIUM 2.5mg-0.5mg/3ml NEB AEROSOL SCH ×6 (02:36→22:42)
[2017-10-09] MEDS: LEVOFLOXACIN 750 MG TABLET PO SCH (05:59)
[2017-10-09] MEDS: PANTOPRAZOLE 40 MG TABLET PO SCH (05:59)
[2017-10-09] MEDS: BUDESONIDE INH.SOLN 0.5mg/2ml NEB AEROSOL SCH ×2 (07:01→19:34)
[2017-10-09] MEDS: BUMETANIDE 0.5 MG TABLET PO SCH (08:25)
[2017-10-09] MEDS: PredniSONE 20 MG TABLET PO SCH (08:25)
[2017-10-09] MEDS: ACETAMINOPHEN 325 MG TABLET PO PRN (08:57)
--- NOTE | 2017-10-09 10:00 | Progress Note ---
- Date 10/09/17 Subjective: F/U: acute on chronic respiratory failure. Judie is seen this morning while resting in bed in conjunction with Dr. Walton (pul). She reports that, overall, she is doing well. She does admit that she continues to struggle with fatigue and increased dyspnea with exertion which is limiting her mobility and participation with therapies. She denies any current pain, chest pain, abdominal pain, nausea, vomiting or dysuria. Her appetite is stable and bowels are moving. Repeat labs today revealed slight increase in WBC (12.6) and otherwise stable. CO2 remains elevated, but trending down at 50. She admits to using her BiPAP at night but reports that she has to take it off frequently because it makes her "too dry". Dr. Walton recommended turning up the humidity to try and encourage continuous use. Prior chest tube incision draining clear serous fluid requiring multiple dressing changes per nursing. Wound is clean without surrounding erythema or pus noted. Objective Vital signs: Temperature 98.4 F 10/09/17 07:00 Pulse Rate 91 10/09/17 07:00 Respiratory Rate 16 10/09/17 07:01 Blood Pressure 130/80 10/09/17 07:00 Pulse Oximetry 94 10/09/17 07:01 Height/Weight/BMI: Height 5 ft 1 in Weight 116 lb 13.52 oz Body Mass Index 20.2 Comments: Resting in bed with nursing and Dr. Walton at bedside. - Constitutional Present: well developed, thin, cooperative Comments: Appears mildly dyspneic on exam despite 8L NC. - Routine HEENT Exam Head: Present: normocephalic, atraumatic Eye: Present: PERRL. Absent: conjunctival icterus ENT: Present: mucous membranes moist - Routine Respiratory Exam Present: decreased breath sounds, diminished air movement - Routine Cardiovascular Exam Present: RRR, S1, S2 - Routine Abdominal Exam Present: soft, normoactive bowel sounds, non tender - Routine Extremities Exam Present: no edema, full ROM, pulses intact - Routine Back/Spine/Pelvis Exam Back/Spine: Present: full ROM. Absent: vertebral tenderness - Routine Musculoskeletal Exam Musculoskeletal: Present: moving extremities well - Routine Skin Exam Present: dry, warm Comments: location of prior chest tube evaluated - clear serous drainage noted to bandage ; no surrounding erythema or bleeding; no pus; bandage replaced by nursing on exam. - Routine Neurological Exam Present: alert, oriented X3, moving all extremities, hearing grossly intact, normal speech - Routine Lymphatic Exam Lymphatic: Absent: lymphedema - Routine Psychiatric Exam Present: cooperative Results - Labs CBC & Chem 7: 10/09/17 05:51 10/09/17 05:51 Assessment and Plan (1) Acute and chronic respiratory failure with hypercapnia Current visit: No Status: Acute Assessment and Plan: Impression Acute on chronic respiratory failure with hypercapnia - home O2 at 5L and has home vent Acute exacerbation of COPD - Positive sputum culture with Stenotrophomonas maltophilia, likely causative agent Right pneumothorax (POA) - s/p chest tube placement -Chest tube removed 10/05 Severe COPD/Emphysema Severe respiratory distress - intubated 10/01, extubated 10/02 Pulmonary debility -severe Chronic diastolic heart failure Elevated LFTs (POA) - resolved History of tobacco use-quit 2004 Anxiety Gastroesophageal Reflux Disease Plan - 10/09/17: Will continue with levofloxacin and prednisone for respiratory treatment. WBC slightly increased (12.6). Continue to monitor. Patient reports using BiPAP last night but admits to frequently taking it off because it makes her "too dry". Dr. Walton recommended increasing humidity. Continue to stress importance of BiPAP use to help breathing - strongly encouraged to use routinely all night. Recommend using during day if respiratory status worsens to help improve gas exchange and decrease work of breathing. Discussed discharge plan options. Patient continues to insist on returning home. Patient reports she has a tree care foreman who come M-R 7-3 and "could come more". She continues to decline needs for SNU. Stressed the importance of working with therapy to improve strength and functional abilities. Patient states her barriers with therapy continues to be easy fatigability, generalized weakness and significant increase in dyspnea with exertion. Discussed concerns about her returning home given her limitations with mobility and limited care at home. She states that her kitchen is on the opposite side of her house from her bedroom. Encourage participation with therapies. CM to set up Hospice informational meeting with [facility] given end stage of COPD/emphysema. Do feel hospice care will be needed in near future. Recheck labs in AM to monitor blood counts, electrolytes and renal function. DVT Prophylaxis: SCD's GI Prophylaxis: Protonix Resuscitation Status: Full Code - Time spent with patient Time with patient PN: 35 minutes - Physician Narrative Physician: Delano Pretty MD Narrative: Date: 10/09/17 Time: 1455 Have independently interviewed and examined pt. Chart reviewed. Case discussed with CM, Dr Walton, and my PA. Care plan developed with my supervision; agree with above. Doing about the same. Breathing short at rest. Not having pain with breathing. No cough/congestion. Did work with therapy-VERY taxing just to move arms in bed. Eating well. No nausea, ab pain, or stomatitis. Lungs: decreased bilaterally. No crackles/wheezes. Mild resp distress at rest. CV: tachy, regular AB: soft nt/nd BS decreased MSE: awake alert Plan: Continue Levaquin and Prednisone. As CO2 still elevated, will give Diamox 500mg x1 and decreased Bumex to 0.5mg daily. Encouraged patient to continue to work hard on strength--encourage moving arms/legs even when therapy not present to help. Worry about patient's ability to function well at home with her severe pulmonary debility. Planning Hospice informational meeting tomorrow. Hospital Course Summary Disclaimer: The visit summary below is not to be considered part of the above Progress Note. Hospital Course: 10/01/17 Admission Admit patient to CCU as a inpatient under the care of Dr Pretty. Currently on ventilator due to severity of respiratory distress. Propofol drip for sedation. Consultation placed with Dr. Walton for his pulmonary expertise and guidance. Will start patient on IV Rocephin and azithromycin for empiric antimicrobial pulmonary coverage. It is reported that patient does take Zithromax 3 times a week for pulmonary prophylaxis. Schedule DuoNeb neb and Pulmicort breathing treatments. Will obtain sputum culture via suctioning. Normal saline at 100 mL per hour for gentle hydration, monitor for evidence of fluid overload. Patient does chronically take Bumex 1 milligram twice a day and may require diuresing. Solu-Medrol 125 milligrams IV every etc. hours for pulmonary inflammation. Given history of COPD. Ativan as needed for anxiety. Patient does use Xanax at home. Daughter notes she may be using more and more given the severity of her respiratory effort. SCDs for DVT prophylaxis Recheck CBC and CMP tomorrow to follow blood counts, renal function, electrolytes and liver function. Full code is ordered as per Daughter at time of admission At time of discharge medical care will return to PCP, Dr Colunga 10/02/17 Chest tube placed by Dr Walton for decompression of pneumothorax. Able to be extubated and placed on BiPAP this afternoon. Will continue Rocephin and azithromycin for antimicrobial coverage. Decreased Solu-Medrol to 62.5mg IV q 6 hr; continue breathing treatments. Can discontinue IVF and advance diet to regular. Start potassium 20mEg BIDWM as potassium low (home dose 10 Jun). Will restart home Bumex tomorrow. Recheck CXR, BMP, and CBC along with magnesium in am. Continue CCU care and monitoring, possible transfer to floor tomorrow if continues to do well. 10/03/17 CXR showing stability - no infiltrate, pneumothorax resolved with chest tube. Respiratory distress decreasing - Maintaining saturation on O2. Did tolerate BiPAP overnight. Oral drive improving. Continue ceftriaxone and azithromycin for pulmonary coverage. Will continue Solu -Medrol and neb treatments. Add acapella to help decrease congestion. Blood sugars stable - continue monitoring and ISS due to steroid use. PT/OT eval due to underlying pulmonary debility and acute gen debility from this acute illness. Bladder retraining - likely can discontinue Schroeder in near future. Medically stable for transfer to medical floor to continue care. 10/04/17 Continue with Bi-pap and oxygen. Right chest tube remains intact - CXR today revels no pneumothorax. Continues small bilateral pleural effusions. Remains on scheduled Bumex BID. Continued scheduled Nebs. Appreciate Dr Walton expertise. Continue ceftriaxone and azithromycin for pulmonary coverage. PT/OT evaluation- She likely has significant pulmonary debility however does live at home alone. 10/05/17 Positive sputum culture with Stenotrophomonas maltophilia that is sensitive to levaquin, will switch to po Levaquin to complete antibiotic course. CXR today without PTX and no air leak, will pull R CT and check CXR in 4 hrs. 10/06/17 The chest tube has been removed and subsequent chest x-ray shows no recurrent pneumothorax. Bumex decreased to 0.5 mg twice a day. Will DC Schroeder. 10/07/17 Continues on methylprednisolone 62.5 mg IV Q6 hours-will try switching to a PO prednisone taper. 10/08/17 Will continue with levofloxacin and Prednisone 60mg dialy for respiratory treatment. Stress importance of BiPAP use to help breathing - strongly encouraged to use routinely all night. Needs to use during day if respiratory status worsens to help improve gas exchange and decrease work of breathing. As patient feels she is 'determined' to get better, did stress the critical need to work with therapy to help improve functional status. Would recommend starting with light activities - bed exercises, sitting on edge of bed. Increasing to transfers as able. Advised will be very hard/difficult work. Gains made will be slow. Wanting to return to home living - discussed how gains need to be made before that can be a reality. Will have set up Hospice informational meeting with [facility]. Patient at end stage of COPD/Emphysema and do feel hospice care will be needed in near future. Discussed case with patient, her home caregiver, and patient's daughter at length. Plan - 10/09/17: Will continue with levofloxacin and prednisone for respiratory treatment. WBC slightly increased (12.6). Continue to monitor. Patient reports using BiPAP last night but admits to frequently taking it off because it makes her "too dry". Dr. Walton recommended increasing humidity. Continue to stress importance of BiPAP use to help breathing - strongly encouraged to use routinely all night. Recommend using during day if respiratory status worsens to help improve gas exchange and decrease work of breathing. Discussed discharge plan options. Patient continues to insist on returning home. Patient reports she has a tree care foreman who come M-R 7-3 and "could come more". She continues to decline needs for SNU. Stressed the importance of working with therapy to improve strength and functional abilities. Patient states her barriers with therapy continues to be easy fatigability, generalized weakness and significant increase in dyspnea with exertion. Discussed concerns about her returning home given her limitations with mobility and limited care at home. She states that her kitchen is on the opposite side of her house from her bedroom. Encourage participation with therapies. With CO2 showing elevation despite BiPAP, will give Diamox 500mg x1 and decreased Bumex to 0.5mg daily. CM to set up Hospice informational meeting with [facility] given end stage of COPD/emphysema. Do feel hospice care will be needed in near future. Recheck labs in AM to monitor blood counts, electrolytes and renal function.
--- NOTE | 2017-10-09 12:40 | Pulmonology Progress Note ---
Subjective Principal diagnosis: COPD exacerbation Interval history: chest tube site redressed due to a small amount of pleural fluid leak No new symptoms using BIPAP at night, O2 at 6 lpm during the day Exam Vital signs: Temperature 98.4 F 10/09/17 07:00 Pulse Rate 97 10/09/17 08:00 Respiratory Rate 16 10/09/17 11:21 Blood Pressure 130/80 10/09/17 07:00 Pulse Oximetry 94 10/09/17 11:21 Inpatient Medications: Generic Name Dose Route Start Last Admin Trade Name Freq PRN Reason Stop Dose Admin Acetaminophen 650 mg 10/01/17 13:56 Tylenol Supp CA Q5H PRN Pain Acetaminophen 650 mg 10/03/17 14:36 10/09/17 08:57 Tylenol PO 650 mg Q5H PRN Administration Discomfort Albuterol/Ipratropium 3 ml 10/01/17 13:56 Duoneb AEROSOL Q4HR PRN Shortness of air Albuterol/Ipratropium 3 ml 10/03/17 12:00 10/09/17 11:21 Duoneb AEROSOL 3 ml Q4HR TESSIE Administration Bisacodyl 10 mg 10/02/17 14:37 Dulcolax RECTALLY DAILY PRN Constipation Budesonide 0.5 mg 10/01/17 19:00 10/09/17 07:01 Pulmicort Inhalation AEROSOL 0.5 mg RTBID TESSIE Administration Bumetanide 0.5 mg 10/07/17 09:00 10/09/17 08:25 Bumex 0.5 Mg Tab PO 0.5 mg [id number] TESSIE Administration Insulin Human Regular 2 - 8 unit 10/01/17 15:08 10/08/17 14:18 Novolin R SQ 2 unit SS PRN Administration Hyperglycemia Protocol Levofloxacin 750 mg 10/09/17 06:30 10/09/17 05:59 Levaquin PO 750 mg Q2D@0630 TESSIE Administration Lorazepam 1 mg 10/02/17 14:40 10/09/17 04:52 Ativan Inj IVP 1 mg Q4H PRN Administration Agitation/Air hunger/Pain Magnesium Hydroxide 30 ml 10/02/17 14:37 Mom PO DAILY PRN Constipation Ondansetron HCl 4 mg 10/01/17 13:56 Zofran IVP Q6H PRN Nausea Pantoprazole Sodium 40 mg 10/04/17 06:30 10/09/17 05:59 Protonix Tab PO 40 mg ACB TESSIE Administration Polyethylene Glycol 17 gm 10/02/17 14:38 Miralax PO DAILY PRN Constipation Potassium Chloride 20 meq 10/02/17 17:30 10/09/17 08:25 Micro-K 10 Meq Capsule PO 20 meq BIDWM TESSIE Administration Prednisone 60 mg 10/08/17 08:00 10/09/17 08:25 Deltasone 20 Mg PO 60 mg WB TESSIE Administration Sodium Chloride 10 - 80 ml 10/01/17 12:46 10/08/17 18:00 Iv Flush IVF 20 ml PRN PRN Administration Flushing Sodium Chloride 500 ml 10/04/17 14:26 10/04/17 14:28 Normal Saline IV 500 ml PRN PRN Administration Sodium Chloride 1 spray 10/06/17 11:34 Deep Sea Nasal Moisturizing Ladd EA NOSTRIL PRN PRN Congestion Discontinued Medications Generic Name Dose Route Start Last Admin Trade Name Freq PRN Reason Stop Dose Admin Albuterol/Ipratropium 3 ml 10/01/17 12:46 10/01/17 13:02 Duoneb IH 10/01/17 12:47 3 ml ONCE ONE Administration Albuterol/Ipratropium 3 ml 10/01/17 15:00 10/06/17 23:22 Duoneb AEROSOL Not Given Q6HR TESSIE Azithromycin 500 mg 10/05/17 06:30 10/05/17 05:36 Zithromax PO 500 mg ACB TESSIE Administration Bumetanide 1 mg 10/03/17 09:00 10/05/17 13:55 Bumex 1 Mg Tab PO 1 mg [id number] TESSIE Administration Bumetanide 0.5 mg 10/06/17 09:00 10/06/17 14:09 Bumex 1 Mg Tab PO 0.5 mg [id number] TESSIE Administration Sodium Chloride 1,000 mls @ 999.9 mls/hr 10/01/17 13:26 10/01/17 23:05 Normal Saline IV 10/01/17 14:25 Not Given .Q1H ONE Ceftriaxone Sodium 1 g/ Sodium 100 mls @ 200 mls/hr 10/01/17 13:45 10/05/17 14:55 Chloride IV Infused Q24H TESSIE Infusion Azithromycin 500 mg/ Sodium 250 mls @ 167 mls/hr 10/01/17 13:56 10/04/17 16: 58 Chloride IV Infused Q24H TESSIE Infusion Sodium Chloride 1,000 mls @ 100 mls/hr 10/01/17 13:56 10/02/17 17:00 Normal Saline IV 100 mls/hr .Q10H TESSIE Infusion Propofol 1,000 mg in 100 mls @ 1.569 mls/hr 10/01/17 14:34 10/02/17 14:00 Diprivan IV 0 mcg/kg/min .Q24H PRN 0 mls/hr Protocol Infusion 5 MCG/KG/MIN Sodium Chloride 500 mls @ 999.9 mls/hr 10/01/17 18:30 10/01/17 18:35 Normal Saline IV 10/01/17 18:59 Not Given .Q30M TESSIE Levofloxacin 750 mg 10/06/17 06:30 10/07/17 06:00 Levaquin PO 750 mg ACB TESSIE Administration Lorazepam 0.5 mg 10/01/17 13:56 10/02/17 21:03 Ativan Inj IVP 0.5 mg Q4H PRN Administration Anxiety/Air hunger/Agitation Methylprednisolone Sodium Succinate 125 mg 10/01/17 15:00 10/02/17 14:28 Solu-Medrol IVP 125 mg Q6HR TESSIE Administration Methylprednisolone Sodium Succinate 62.5 mg 10/02/17 15:00 10/07/17 08:53 Solu-Medrol IVP 62.5 mg Q6HR TESSIE Administration Midazolam HCl 5 mg 10/01/17 12:48 10/01/17 13:17 Versed IVP 10/01/17 12:49 5 mg O ONE Administration Midazolam HCl 5 mg 10/01/17 13:14 10/01/17 13:21 Versed IVP 10/01/17 13:15 5 mg O ONE Administration Pantoprazole Sodium 40 mg 10/02/17 10:45 10/03/17 09:22 Protonix Iv IVP 40 mg DAILY TESSIE Administration Pharmacy Consult 1 each 10/02/17 15:36 Pharmacy Consult - Fall Risk 10/02/17 15:37 ONE TIME ONE Succinylcholine Chloride 100 mg 10/01/17 12:49 10/01/17 13:23 Quelicin IVP 10/01/17 12:50 100 mg O ONE Administration - Constitutional no acute distress - Routine HEENT Exam Eye: Absent: conjunctival icterus - Routine Neck Exam Present: supple - Routine Respiratory Exam Present: decreased breath sounds, prolonged expiratory phase. Absent: wheezes - Routine Cardiovascular Exam Present: RRR - Routine Abdominal Exam Present: soft. Absent: guarding - Urinary Catheter Management Urethral Cath placed during this visit: yes, but has since been removed by the nurse Urethral indwelling: Yes Insertion date: 10/01/17 Removal date: 10/06/17 Removal time: 15:00 Results - Laboratory Findings Laboratory: Laboratory Results - last 48 hr 10/07/17 10/07/17 10/08/17 15:13 20:23 04:00 WBC 11.3 H RBC 4.45 Hgb 12.0 Hct 40.9 MCV 91.9 MCH 27.0 MCHC 29.3 L RDW Std Deviation 49.3 Plt Count 166 MPV 12.1 Immature Gran % (Auto) 0.3 Neut % (Auto) 84.3 H Lymph % (Auto) 6.7 L Bucks % (Auto) 8.7 Eos % (Auto) 0.0 Baso % (Auto) 0.0 Neut # (Auto) 9.5 H Lymph # (Auto) 0.8 L Bucks # (Auto) 1.0 H Eos # (Auto) 0.0 Baso # (Auto) 0.0 Abs Immat Gran (auto) 0.03 Turbidity Sodium Potassium Chloride Carbon Dioxide Anion Gap BUN Creatinine GFR Calculation BUN/Creatinine Ratio Glucose Glucometer 134 130 Calculated Osmolality Calcium Icterus Index Specimen Hemolysis 10/08/17 10/08/17 10/08/17 04:00 06:13 10:01 WBC RBC Hgb Hct MCV MCH MCHC RDW Std Deviation Plt Count MPV Immature Gran % (Auto) Neut % (Auto) Lymph % (Auto) Bucks % (Auto) Eos % (Auto) Baso % (Auto) Neut # (Auto) Lymph # (Auto) Bucks # (Auto) Eos # (Auto) Baso # (Auto) Abs Immat Gran (auto) Turbidity < 20 Sodium 140 Potassium 3.9 Chloride 86 L Carbon Dioxide 53 H* Anion Gap 1 L BUN 28.0 H Creatinine 0.4 L GFR Calculation 155 BUN/Creatinine Ratio 70 H Glucose 85 Glucometer 74 111 Calculated Osmolality 274 Calcium 8.4 Icterus Index < 2 Specimen Hemolysis < 15 10/08/17 10/08/17 10/09/17 14:04 19:47 05:51 WBC 12.6 H RBC 4.46 Hgb 12.3 Hct 41.1 MCV 92.2 MCH 27.6 MCHC 29.9 L RDW Std Deviation 49.6 Plt Count 163 MPV 11.7 Immature Gran % (Auto) 0.4 Neut % (Auto) 83.1 H Lymph % (Auto) 8.1 L Bucks % (Auto) 8.0 Eos % (Auto) 0.4 Baso % (Auto) 0.0 Neut # (Auto) 10.4 H Lymph # (Auto) 1.0 Bucks # (Auto) 1.0 H Eos # (Auto) 0.1 Baso # (Auto) 0.0 Abs Immat Gran (auto) 0.05 H Turbidity Sodium Potassium Chloride Carbon Dioxide Anion Gap BUN Creatinine GFR Calculation BUN/Creatinine Ratio Glucose Glucometer 178 216 Calculated Osmolality Calcium Icterus Index Specimen Hemolysis 10/09/17 10/09/17 10/09/17 05:51 05:51 09:58 WBC RBC Hgb Hct MCV MCH MCHC RDW Std Deviation Plt Count MPV Immature Gran % (Auto) Neut % (Auto) Lymph % (Auto) Bucks % (Auto) Eos % (Auto) Baso % (Auto) Neut # (Auto) Lymph # (Auto) Bucks # (Auto) Eos # (Auto) Baso # (Auto) Abs Immat Gran (auto) Turbidity < 20 Sodium 140 Potassium 3.8 Chloride 87 L Carbon Dioxide 50 H* Anion Gap 3 L BUN 24.0 H Creatinine 0.4 L GFR Calculation 155 BUN/Creatinine Ratio 60 H Glucose 81 Glucometer 75 97 Calculated Osmolality 272 Calcium 8.3 L Icterus Index < 2 Specimen Hemolysis < 15 Assessment and Plan (1) Acute exacerbation of chronic obstructive airways disease Status: Acute Assessment and plan: slowly improving. Back on solumedrol 62.5 mg IV q6 hours NIPPV at night and prn O2 to keep sat >90% Neb albuterol/iprat q4h, budesonide BID Current Visit: Yes (2) Acute and chronic respiratory failure with hypercapnia Status: Acute Assessment and plan: home vent to mask at night and prn Current Visit: No - Assessment and Plan Acute on Chronic Hypoxic Respiratory Failure COPD exacerbation Right Pneumothorax Chronic Diastolic Heart Failure Plan: - Time Spent With Patient Total time spent is greater than 50% in coordination of care (as documented) at patient's floor/unit and/or counseling patient: less than 15 minutes
[2017-10-09] MEDS ORDERED: acetaZOLAMIDE 250 MG TABLET PO ONE (13:10)
[2017-10-09] MEDS: SALINE FLUSH 10ml SYRINGE IVF PRN (17:51)
[2017-10-10] MEDS: ALBUTEROL/IPRATROPIUM 2.5mg-0.5mg/3ml NEB AEROSOL SCH ×5 (03:25→22:35)
[2017-10-10] MEDS: PANTOPRAZOLE 40 MG TABLET PO SCH (06:10)
[2017-10-10] MEDS: BUDESONIDE INH.SOLN 0.5mg/2ml NEB AEROSOL SCH ×2 (07:54→19:26)
[2017-10-10] MEDS: BUMETANIDE 0.5 MG TABLET PO SCH ×2 (10:58→23:29)
[2017-10-10] MEDS: PredniSONE 20 MG TABLET PO SCH (10:59)
--- NOTE | 2017-10-10 14:40 | Progress Note ---
- Date 10/10/17 Subjective: F/U: acute on chronic respiratory failure. Judie is seen while resting in bed with family at the bedside. They are discussing care options following discharge. Currently family reports that they have arranged for around the clock care in her home as the patient continues to refuse to consider senior living. They have also discussed the possibility of hospice and are waiting to speak with case management with regard to discharge planning. Physically, she continues to complain of easy fatigability, even with ambulation to the bathroom in her room. Her appetite is stable and bowels are moving. Objective Vital signs: Temperature 98.4 F 10/10/17 08:00 Pulse Rate 100 10/10/17 08:00 Respiratory Rate 20 10/10/17 12:08 Blood Pressure 143/79 H 10/10/17 08:00 Pulse Oximetry 92 10/10/17 12:08 Height/Weight/BMI: Height 5 ft 1 in Weight 113 lb 15.664 oz Body Mass Index 20.2 Comments: Sitting up in bed with family at the bedside. - Constitutional Present: well nourished, well developed, thin, cooperative - Routine HEENT Exam Head: Present: normocephalic, atraumatic Eye: Present: PERRL. Absent: conjunctival icterus ENT: Present: mucous membranes dry - Routine Respiratory Exam Present: decreased breath sounds, respiratory distress (mild, pursed lip breathing.), diminished air movement - Routine Cardiovascular Exam Present: tachycardia - Routine Abdominal Exam Present: soft, normoactive bowel sounds, non tender - Routine Extremities Exam Present: no edema, non tender, full ROM, pulses intact - Routine Back/Spine/Pelvis Exam Back/Spine: Present: full ROM. Absent: vertebral tenderness - Routine Musculoskeletal Exam Musculoskeletal: Present: no clubbing or cyanosis, moving extremities well - Routine Skin Exam Present: intact, dry, warm Comments: Afebrile. - Routine Neurological Exam Present: alert, oriented X3, moving all extremities, hearing grossly intact, normal speech - Routine Lymphatic Exam Lymphatic: Absent: lymphedema - Routine Psychiatric Exam Present: cooperative Results - Labs CBC & Chem 7: 10/10/17 05:05 10/10/17 05:05 Assessment and Plan (1) Acute and chronic respiratory failure with hypercapnia Current visit: No Status: Acute Assessment and Plan: Impression Acute on chronic respiratory failure with hypercapnia - home O2 at 5L and has home vent Acute exacerbation of COPD - Positive sputum culture with Stenotrophomonas maltophilia, likely causative agent Right pneumothorax (POA) - s/p chest tube placement -Chest tube removed 10/05 Severe COPD/Emphysema Severe respiratory distress - intubated 10/01, extubated 10/02 Pulmonary debility -severe Chronic diastolic heart failure Elevated LFTs (POA) - resolved History of tobacco use-quit 2004 Anxiety Gastroesophageal Reflux Disease Plan Family and patient have arranged for around the clock care in her home and are discussing initiation of hospice. Waiting to meet with case management to discuss additional discharge plans. Will continue with levofloxacin and prednisone for respiratory treatment. WBC decreased to 11.3. Patient remains afebrile. Continue to monitor. CO2 slightly improved after dose of Diamox on 10/09/17. Bumex decreased to 0.5mg daily on 10/09/17. Monitor closely for signs of fluid overload. Continue to stress importance of BiPAP use to help breathing - strongly encouraged to use routinely all night. Recommend using during day if respiratory status worsens to help improve gas exchange and decrease work of breathing. Continued easy fatigability with any exertion. Continue to stress the importance of working with therapy to improve strength and functional abilities. Recheck labs in AM to monitor blood counts, electrolytes and renal function. DVT Prophylaxis: SCD's Resuscitation Status: Full Code - Time spent with patient Time with patient PN: 30 minutes - Physician Narrative Physician: Delano Pretty MD Narrative: Date: 10/10/17 Time: 1550 Have independently interviewed and examined pt. Chart reviewed. Case discussed with CM, Hospice nurse, Dr Colunga, and my PA. Care plan developed with my supervision; agree with above. Doing fair. Breathing about the same - still very short with any activity/ exertion. No cough/congestion. Mouth very dry. Eating well. Stools feel slow. Still has desire to 'get better,' is open to hospice care as it could help her return to home living. Not wanting skilled care at all. Lungs: Decreased air movement-respiratory distress at rest (shallow/rapid breathing). CV: regular MSE: awake alert Plan: Lab doing well with decreased Bumex and dose of Diamox yesterday. Will give 500mg Diamox x1 today. Feel would be reasonable to use 0.5mg Bumex daily, with additional Bumex as needed for increased edema. Family working on getting additional home nursing set up for patient. Family in favor for hospice; patient coming around to hospice to help her remain comfortable at home. Did talk with her about some patients making improvements on hospice (and sometime needing to have hospice sign off due to the gains) - advised that hospice is not a one time use. Hospital Course Summary Disclaimer: The visit summary below is not to be considered part of the above Progress Note. Hospital Course: 10/01/17 Admission Admit patient to CCU as a inpatient under the care of Dr Pretty. Currently on ventilator due to severity of respiratory distress. Propofol drip for sedation. Consultation placed with Dr. Walton for his pulmonary expertise and guidance. Will start patient on IV Rocephin and azithromycin for empiric antimicrobial pulmonary coverage. It is reported that patient does take Zithromax 3 times a week for pulmonary prophylaxis. Schedule DuoNeb neb and Pulmicort breathing treatments. Will obtain sputum culture via suctioning. Normal saline at 100 mL per hour for gentle hydration, monitor for evidence of fluid overload. Patient does chronically take Bumex 1 milligram twice a day and may require diuresing. Solu-Medrol 125 milligrams IV every etc. hours for pulmonary inflammation. Given history of COPD. Ativan as needed for anxiety. Patient does use Xanax at home. Daughter notes she may be using more and more given the severity of her respiratory effort. SCDs for DVT prophylaxis Recheck CBC and CMP tomorrow to follow blood counts, renal function, electrolytes and liver function. Full code is ordered as per Daughter at time of admission At time of discharge medical care will return to PCP, Dr Colunga 10/02/17 Chest tube placed by Dr Walton for decompression of pneumothorax. Able to be extubated and placed on BiPAP this afternoon. Will continue Rocephin and azithromycin for antimicrobial coverage. Decreased Solu-Medrol to 62.5mg IV q 6 hr; continue breathing treatments. Can discontinue IVF and advance diet to regular. Start potassium 20mEg BIDWM as potassium low (home dose 10 Jun). Will restart home Bumex tomorrow. Recheck CXR, BMP, and CBC along with magnesium in am. Continue CCU care and monitoring, possible transfer to floor tomorrow if continues to do well. 10/03/17 CXR showing stability - no infiltrate, pneumothorax resolved with chest tube. Respiratory distress decreasing - Maintaining saturation on O2. Did tolerate BiPAP overnight. Oral drive improving. Continue ceftriaxone and azithromycin for pulmonary coverage. Will continue Solu -Medrol and neb treatments. Add acapella to help decrease congestion. Blood sugars stable - continue monitoring and ISS due to steroid use. PT/OT eval due to underlying pulmonary debility and acute gen debility from this acute illness. Bladder retraining - likely can discontinue Schroeder in near future. Medically stable for transfer to medical floor to continue care. 10/04/17 Continue with Bi-pap and oxygen. Right chest tube remains intact - CXR today revels no pneumothorax. Continues small bilateral pleural effusions. Remains on scheduled Bumex BID. Continued scheduled Nebs. Appreciate Dr Walton expertise. Continue ceftriaxone and azithromycin for pulmonary coverage. PT/OT evaluation- She likely has significant pulmonary debility however does live at home alone. 10/05/17 Positive sputum culture with Stenotrophomonas maltophilia that is sensitive to levaquin, will switch to po Levaquin to complete antibiotic course. CXR today without PTX and no air leak, will pull R CT and check CXR in 4 hrs. 10/06/17 The chest tube has been removed and subsequent chest x-ray shows no recurrent pneumothorax. Bumex decreased to 0.5 mg twice a day. Will DC Schroeder. 10/07/17 Continues on methylprednisolone 62.5 mg IV Q6 hours-will try switching to a PO prednisone taper. 10/08/17 Will continue with levofloxacin and Prednisone 60mg dialy for respiratory treatment. Stress importance of BiPAP use to help breathing - strongly encouraged to use routinely all night. Needs to use during day if respiratory status worsens to help improve gas exchange and decrease work of breathing. As patient feels she is 'determined' to get better, did stress the critical need to work with therapy to help improve functional status. Would recommend starting with light activities - bed exercises, sitting on edge of bed. Increasing to transfers as able. Advised will be very hard/difficult work. Gains made will be slow. Wanting to return to home living - discussed how gains need to be made before that can be a reality. Will have set up Hospice informational meeting with [facility]. Patient at end stage of COPD/Emphysema and do feel hospice care will be needed in near future. Discussed case with patient, her home caregiver, and patient's daughter at length. Plan - 10/09/17: Will continue with levofloxacin and prednisone for respiratory treatment. WBC slightly increased (12.6). Continue to monitor. Patient reports using BiPAP last night but admits to frequently taking it off because it makes her "too dry". Dr. Walton recommended increasing humidity. Continue to stress importance of BiPAP use to help breathing - strongly encouraged to use routinely all night. Recommend using during day if respiratory status worsens to help improve gas exchange and decrease work of breathing. Discussed discharge plan options. Patient continues to insist on returning home. Patient reports she has a director of critical care who come M-R 7-3 and "could come more". She continues to decline needs for SNU. Stressed the importance of working with therapy to improve strength and functional abilities. Patient states her barriers with therapy continues to be easy fatigability, generalized weakness and significant increase in dyspnea with exertion. Discussed concerns about her returning home given her limitations with mobility and limited care at home. She states that her kitchen is on the opposite side of her house from her bedroom. Encourage participation with therapies. With CO2 showing elevation despite BiPAP, will give Diamox 500mg x1 and decreased Bumex to 0.5mg daily. CM to set up Hospice informational meeting with [facility] given end stage of COPD/emphysema. Do feel hospice care will be needed in near future. Recheck labs in AM to monitor blood counts, electrolytes and renal function. Plan - 10/10/17: Family and patient have arranged for around the clock care in her home and are discussing initiation of hospice. Waiting to meet with case management to discuss additional discharge plans. Will continue with levofloxacin and prednisone for respiratory treatment. WBC decreased to 11.3. Patient remains afebrile. Continue to monitor. CO2 slightly improved after dose of Diamox on 10/09/17. Bumex decreased to 0.5mg daily on 10/09/17. Monitor closely for signs of fluid overload. Continue to stress importance of BiPAP use to help breathing - strongly encouraged to use routinely all night. Recommend using during day if respiratory status worsens to help improve gas exchange and decrease work of breathing. Continued easy fatigability with any exertion. Continue to stress the importance of working with therapy to improve strength and functional abilities. Recheck labs in AM to monitor blood counts, electrolytes and renal function.
[2017-10-10] MEDS ORDERED: acetaZOLAMIDE 250 MG TABLET PO ONE (15:42)
[2017-10-10] MEDS: SALIVA SUBSTITUTE MOUTHWASH 237ml MM SCH ×3 (18:30→20:17)
[2017-10-10] MEDS: INSULIN REGULAR, HUMAN 100 UNIT/ML INJECTION SQ PRN (21:17)
[2017-10-11] MEDS: ALBUTEROL/IPRATROPIUM 2.5mg-0.5mg/3ml NEB AEROSOL SCH ×6 (03:11→20:24)
[2017-10-11] MEDS: LEVOFLOXACIN 750 MG TABLET PO SCH (05:50)
[2017-10-11] MEDS: PANTOPRAZOLE 40 MG TABLET PO SCH (06:13)
[2017-10-11] MEDS: BUDESONIDE INH.SOLN 0.5mg/2ml NEB AEROSOL SCH ×2 (08:13→20:24)
[2017-10-11] MEDS: PredniSONE 20 MG TABLET PO SCH (10:30)
[2017-10-11] MEDS: BUMETANIDE 0.5 MG TABLET PO SCH (10:30)
[2017-10-11] MEDS: SALIVA SUBSTITUTE MOUTHWASH 237ml MM SCH ×5 (10:32→23:55)
--- NOTE | 2017-10-11 10:51 | Progress Note ---
- Date 10/11/17 Subjective: F/U: acute on chronic respiratory failure. Judie is seen this morning while resting in bed. Nursing is present changing her dressing to her right back. Dressing has some clear serous discharge without blood or pus. Patient reports that overall she is doing well and is eager for discharge home. Family has actively been working on coordinating around the clock care. She has come around to the idea of hospice which is being initiated. Plan to discharge home tomorrow, 10/12/17, once hospice and care plans are in place. Objective Vital signs: Temperature 97.5 F 10/10/17 23:26 Pulse Rate 92 10/11/17 08:00 Respiratory Rate 20 10/11/17 08:15 Blood Pressure 124/73 10/11/17 07:00 Pulse Oximetry 95 10/11/17 08:15 Height/Weight/BMI: Height 5 ft 1 in Weight 113 lb 15.664 oz Body Mass Index 20.2 Comments: Resting in bed; dressing to right back being changed. - Constitutional Present: no acute distress, well nourished, well developed, cooperative - Routine HEENT Exam Head: Present: normocephalic, atraumatic Eye: Present: PERRL. Absent: conjunctival icterus ENT: Present: mucous membranes moist, oropharynx clear - Routine Respiratory Exam Present: decreased breath sounds, prolonged expiratory phase, diminished air movement - Routine Cardiovascular Exam Present: S1, S2, tachycardia - Routine Abdominal Exam Present: soft, normoactive bowel sounds, non tender - Routine Extremities Exam Present: no edema, full ROM, pulses intact - Routine Back/Spine/Pelvis Exam Back/Spine: Present: full ROM. Absent: vertebral tenderness - Routine Skin Exam Present: intact, dry, warm Comments: Afebrile. - Routine Neurological Exam Present: alert, moving all extremities, hearing grossly intact, normal speech - Routine Lymphatic Exam Lymphatic: Absent: lymphedema - Routine Psychiatric Exam Present: normal affect, cooperative Results - Labs CBC & Chem 7: 10/11/17 04:42 10/11/17 04:42 Assessment and Plan (1) Acute and chronic respiratory failure with hypercapnia Current visit: No Status: Acute Assessment and Plan: Impression Acute on chronic respiratory failure with hypercapnia - home O2 at 5L and has home vent Acute exacerbation of COPD - Positive sputum culture with Stenotrophomonas maltophilia, likely causative agent Right pneumothorax (POA) - s/p chest tube placement -Chest tube removed 10/05 Severe COPD/Emphysema - end stage disease Severe respiratory distress - intubated 10/01, extubated 10/02 Pulmonary debility -severe Chronic diastolic heart failure Elevated LFTs (POA) - resolved History of tobacco use-quit 2004 Anxiety Gastroesophageal Reflux Disease Plan Family and patient have arranged for around the clock care in her home and patient is open to hospice. Plan to discharge home tomorrow, 10/12/17. Will continue with levofloxacin and prednisone for respiratory treatment. WBC 12.0. Patient remains afebrile. Continue to monitor. Diamox 500mg x 1 dose given on 10/09 and 10/10. CO2 trending down. Bumex decreased to 0.5mg daily on 10/09/17. Continue Bumex 0.5mg daily with additional Bumex as needed for edema. Monitor closely for signs of fluid overload. Continue to stress importance of BiPAP use to help breathing - strongly encouraged to use routinely all night. Recommend using during day if respiratory status worsens to help improve gas exchange and decrease work of breathing. Continued easy fatigability with any exertion. Continue to stress the importance of working with therapy to improve strength and functional abilities. Recheck labs in AM to monitor blood counts, electrolytes and renal function. DVT Prophylaxis: SCD's Resuscitation Status: Full Code - Time spent with patient Time with patient PN: 25 minutes - Physician Narrative Physician: Delano Pretty MD Narrative: Date: 10/11/17 Time: 1715 Have independently interviewed and examined pt. Chart reviewed. Case discussed with CM and my PA. Care plan developed with my supervision; agree with above. Doing about the same. Still very SOA even at rest. Not improving, but not decreasing. No cough/congestion. Appetite stable. Lungs: decreased, diminished air movement. CV: regular AB: soft nt MSE: awake alert Plan: Continue treatments. Will need to discuss with Dr Walton about Prednisone use in the outpatient setting. Arrangements being made for home with hospice. Pt is hoping will see improvement of strength and abilities once she gets home. Hospital Course Summary Disclaimer: The visit summary below is not to be considered part of the above Progress Note. Hospital Course: 10/01/17 Admission Admit patient to CCU as a inpatient under the care of Dr Pretty. Currently on ventilator due to severity of respiratory distress. Propofol drip for sedation. Consultation placed with Dr. Walton for his pulmonary expertise and guidance. Will start patient on IV Rocephin and azithromycin for empiric antimicrobial pulmonary coverage. It is reported that patient does take Zithromax 3 times a week for pulmonary prophylaxis. Schedule DuoNeb neb and Pulmicort breathing treatments. Will obtain sputum culture via suctioning. Normal saline at 100 mL per hour for gentle hydration, monitor for evidence of fluid overload. Patient does chronically take Bumex 1 milligram twice a day and may require diuresing. Solu-Medrol 125 milligrams IV every etc. hours for pulmonary inflammation. Given history of COPD. Ativan as needed for anxiety. Patient does use Xanax at home. Daughter notes she may be using more and more given the severity of her respiratory effort. SCDs for DVT prophylaxis Recheck CBC and CMP tomorrow to follow blood counts, renal function, electrolytes and liver function. Full code is ordered as per Daughter at time of admission At time of discharge medical care will return to PCP, Dr Colunga 10/02/17 Chest tube placed by Dr Walton for decompression of pneumothorax. Able to be extubated and placed on BiPAP this afternoon. Will continue Rocephin and azithromycin for antimicrobial coverage. Decreased Solu-Medrol to 62.5mg IV q 6 hr; continue breathing treatments. Can discontinue IVF and advance diet to regular. Start potassium 20mEg BIDWM as potassium low (home dose 10 Jun). Will restart home Bumex tomorrow. Recheck CXR, BMP, and CBC along with magnesium in am. Continue CCU care and monitoring, possible transfer to floor tomorrow if continues to do well. 10/03/17 CXR showing stability - no infiltrate, pneumothorax resolved with chest tube. Respiratory distress decreasing - Maintaining saturation on O2. Did tolerate BiPAP overnight. Oral drive improving. Continue ceftriaxone and azithromycin for pulmonary coverage. Will continue Solu -Medrol and neb treatments. Add acapella to help decrease congestion. Blood sugars stable - continue monitoring and ISS due to steroid use. PT/OT eval due to underlying pulmonary debility and acute gen debility from this acute illness. Bladder retraining - likely can discontinue Schroeder in near future. Medically stable for transfer to medical floor to continue care. 10/04/17 Continue with Bi-pap and oxygen. Right chest tube remains intact - CXR today revels no pneumothorax. Continues small bilateral pleural effusions. Remains on scheduled Bumex BID. Continued scheduled Nebs. Appreciate Dr Walton expertise. Continue ceftriaxone and azithromycin for pulmonary coverage. PT/OT evaluation- She likely has significant pulmonary debility however does live at home alone. 10/05/17 Positive sputum culture with Stenotrophomonas maltophilia that is sensitive to levaquin, will switch to po Levaquin to complete antibiotic course. CXR today without PTX and no air leak, will pull R CT and check CXR in 4 hrs. 10/06/17 The chest tube has been removed and subsequent chest x-ray shows no recurrent pneumothorax. Bumex decreased to 0.5 mg twice a day. Will DC Schroeder. 10/07/17 Continues on methylprednisolone 62.5 mg IV Q6 hours-will try switching to a PO prednisone taper. 10/08/17 Will continue with levofloxacin and Prednisone 60mg dialy for respiratory treatment. Stress importance of BiPAP use to help breathing - strongly encouraged to use routinely all night. Needs to use during day if respiratory status worsens to help improve gas exchange and decrease work of breathing. As patient feels she is 'determined' to get better, did stress the critical need to work with therapy to help improve functional status. Would recommend starting with light activities - bed exercises, sitting on edge of bed. Increasing to transfers as able. Advised will be very hard/difficult work. Gains made will be slow. Wanting to return to home living - discussed how gains need to be made before that can be a reality. Will have set up Hospice informational meeting with [facility]. Patient at end stage of COPD/Emphysema and do feel hospice care will be needed in near future. Discussed case with patient, her home caregiver, and patient's daughter at length. 10/09/17 Will continue with levofloxacin and prednisone for respiratory treatment. WBC slightly increased (12.6). Continue to monitor. Patient reports using BiPAP last night but admits to frequently taking it off because it makes her "too dry". Dr. Walton recommended increasing humidity. Continue to stress importance of BiPAP use to help breathing - strongly encouraged to use routinely all night. Recommend using during day if respiratory status worsens to help improve gas exchange and decrease work of breathing. Discussed discharge plan options. Patient continues to insist on returning home. Patient reports she has a care administrative tech who come M-R 7-3 and "could come more". She continues to decline needs for SNU. Stressed the importance of working with therapy to improve strength and functional abilities. Patient states her barriers with therapy continues to be easy fatigability, generalized weakness and significant increase in dyspnea with exertion. Discussed concerns about her returning home given her limitations with mobility and limited care at home. She states that her kitchen is on the opposite side of her house from her bedroom. Encourage participation with therapies. With CO2 showing elevation despite BiPAP, will give Diamox 500mg x1 and decreased Bumex to 0.5mg daily. CM to set up Hospice informational meeting with [facility] given end stage of COPD/emphysema. Do feel hospice care will be needed in near future. Recheck labs in AM to monitor blood counts, electrolytes and renal function. 10/10/17 Family and patient have arranged for around the clock care in her home and are discussing initiation of hospice. Waiting to meet with case management to discuss additional discharge plans. Will continue with levofloxacin and prednisone for respiratory treatment. WBC decreased to 11.3. Patient remains afebrile. Continue to monitor. CO2 slightly improved after dose of Diamox on 10/09/17. Bumex decreased to 0.5mg daily on 10/09/17. Monitor closely for signs of fluid overload. Continue to stress importance of BiPAP use to help breathing - strongly encouraged to use routinely all night. Recommend using during day if respiratory status worsens to help improve gas exchange and decrease work of breathing. Continued easy fatigability with any exertion. Continue to stress the importance of working with therapy to improve strength and functional abilities. 10/11/17 Family and patient have arranged for around the clock care in her home and patient is open to hospice. Plan to discharge home tomorrow, 10/12/17. Will continue with levofloxacin and prednisone for respiratory treatment. WBC 12.0. Patient remains afebrile. Continue to monitor. Diamox 500mg x 1 dose given on 10/09 and 10/10. CO2 trending down. Bumex decreased to 0.5mg daily on 10/09/17. Continue Bumex 0.5mg daily with additional Bumex as needed for edema. Monitor closely for signs of fluid overload. Continue to stress importance of BiPAP use to help breathing - strongly encouraged to use routinely all night. Recommend using during day if respiratory status worsens to help improve gas exchange and decrease work of breathing. Continued easy fatigability with any exertion. Continue to stress the importance of working with therapy to improve strength and functional abilities. Recheck labs in AM to monitor blood counts, electrolytes and renal function.
--- NOTE | 2017-10-11 12:39 | Pulmonology Progress Note ---
Subjective Principal diagnosis: COPD exacerbation Interval history: chest tube site being redressed due to a small amount of pleural fluid leak No new symptoms using BIPAP at night, O2 at 6 lpm during the day She is on Trelegy once daily at home. Has a home [id number] which she reluctantly using, and agrees to use upon discharge. Exam Vital signs: Temperature 97.5 F 10/10/17 23:26 Pulse Rate 92 10/11/17 08:00 Respiratory Rate 16 10/11/17 11:10 Blood Pressure 124/73 10/11/17 07:00 Pulse Oximetry 95 10/11/17 11:10 Inpatient Medications: Generic Name Dose Route Start Last Admin Trade Name Freq PRN Reason Stop Dose Admin Acetaminophen 650 mg 10/01/17 13:56 Tylenol Supp NE Q5H PRN Pain Acetaminophen 650 mg 10/03/17 14:36 10/09/17 08:57 Tylenol PO 650 mg Q5H PRN Administration Discomfort Albuterol/Ipratropium 3 ml 10/01/17 13:56 Duoneb AEROSOL Q4HR PRN Shortness of air Albuterol/Ipratropium 3 ml 10/03/17 12:00 10/11/17 11:07 Duoneb AEROSOL 3 ml Q4HR TESSIE Administration Bisacodyl 10 mg 10/02/17 14:37 Dulcolax RECTALLY DAILY PRN Constipation Budesonide 0.5 mg 10/01/17 19:00 10/11/17 08:13 Pulmicort Inhalation AEROSOL 0.5 mg RTBID TESSIE Administration Bumetanide 0.5 mg 10/10/17 09:00 10/11/17 10:30 Bumex 0.5 Mg Tab PO 0.5 mg DAILY TESSIE Administration Insulin Human Regular 2 - 8 unit 10/01/17 15:08 10/10/17 21:17 Novolin R SQ 2 unit SS PRN Administration Hyperglycemia Protocol Levofloxacin 750 mg 10/09/17 06:30 10/11/17 05:50 Levaquin PO 750 mg Q2D@0630 TESSIE Administration Lorazepam 1 mg 10/02/17 14:40 10/10/17 22:38 Ativan Inj IVP 1 mg Q4H PRN Administration Agitation/Air hunger/Pain Magnesium Hydroxide 30 ml 10/02/17 14:37 Mom PO DAILY PRN Constipation Ondansetron HCl 4 mg 10/01/17 13:56 Zofran IVP Q6H PRN Nausea Pantoprazole Sodium 40 mg 10/04/17 06:30 10/11/17 06:13 Protonix Tab PO 40 mg ACB TESSIE Administration Polyethylene Glycol 17 gm 10/02/17 14:38 Miralax PO DAILY PRN Constipation Potassium Chloride 20 meq 10/02/17 17:30 10/11/17 10:30 Micro-K 10 Meq Capsule PO 20 meq BIDWM TESSIE Administration Prednisone 60 mg 10/08/17 08:00 10/11/17 10:30 Deltasone 20 Mg PO 60 mg WB TESSIE Administration Saliva Substitute 15 ml 10/10/17 16:28 10/11/17 11:11 Biotene Dry Mouth Oral Rinse MM Not Given 5XD TESSIE Sodium Chloride 10 - 80 ml 10/01/17 12:46 10/09/17 17:51 Iv Flush IVF 20 ml PRN PRN Administration Flushing Sodium Chloride 500 ml 10/04/17 14:26 10/04/17 14:28 Normal Saline IV 500 ml PRN PRN Administration Sodium Chloride 1 spray 10/06/17 11:34 [place] Nasal Moisturizing [place] EA NOSTRIL PRN PRN Congestion Discontinued Medications Generic Name Dose Route Start Last Admin Trade Name Freq PRN Reason Stop Dose Admin Acetazolamide 500 mg 10/09/17 13:10 10/09/17 16:10 Diamox PO 10/09/17 13:11 500 mg O ONE Administration Acetazolamide 500 mg 10/10/17 15:42 10/10/17 18:34 Diamox PO 10/10/17 15:43 500 mg O ONE Administration Albuterol/Ipratropium 3 ml 10/01/17 12:46 10/01/17 13:02 Duoneb IH 10/01/17 12:47 3 ml ONCE ONE Administration Albuterol/Ipratropium 3 ml 10/01/17 15:00 10/06/17 23:22 Duoneb AEROSOL Not Given Q6HR [facility] Azithromycin 500 mg 10/05/17 06:30 10/05/17 05:36 Zithromax PO 500 mg ACB TESSIE Administration Bumetanide 1 mg 10/03/17 09:00 10/05/17 13:55 Bumex 1 Mg Tab PO 1 mg [id number] TESSIE Administration Bumetanide 0.5 mg 10/06/17 09:00 10/06/17 14:09 Bumex 1 Mg Tab PO 0.5 mg [id number] TESSIE Administration Bumetanide 0.5 mg 10/07/17 09:00 10/10/17 23:29 Bumex 0.5 Mg Tab PO Not Given [id number] TESSIE Sodium Chloride 1,000 mls @ 999.9 mls/hr 10/01/17 13:26 10/01/17 23:05 Normal Saline IV 10/01/17 14:25 Not Given .Q1H ONE Ceftriaxone Sodium 1 g/ Sodium 100 mls @ 200 mls/hr 10/01/17 13:45 10/05/17 14:55 Chloride IV Infused Q24H TESSIE Infusion Azithromycin 500 mg/ Sodium 250 mls @ 167 mls/hr 10/01/17 13:56 10/04/17 16: 58 Chloride IV Infused Q24H TESSIE Infusion Sodium Chloride 1,000 mls @ 100 mls/hr 10/01/17 13:56 10/02/17 17:00 Normal Saline IV 100 mls/hr .Q10H TESSIE Infusion Propofol 1,000 mg in 100 mls @ 1.569 mls/hr 10/01/17 14:34 10/02/17 14:00 Diprivan IV 0 mcg/kg/min .Q24H PRN 0 mls/hr Protocol Infusion 5 MCG/KG/MIN Sodium Chloride 500 mls @ 999.9 mls/hr 10/01/17 18:30 10/01/17 18:35 Normal Saline IV 10/01/17 18:59 Not Given .Q30M TESSIE Levofloxacin 750 mg 10/06/17 06:30 10/07/17 06:00 Levaquin PO 750 mg ACB TESSIE Administration Lorazepam 0.5 mg 10/01/17 13:56 10/02/17 21:03 Ativan Inj IVP 0.5 mg Q4H PRN Administration Anxiety/Air hunger/Agitation Methylprednisolone Sodium Succinate 125 mg 10/01/17 15:00 10/02/17 14:28 Solu-Medrol IVP 125 mg Q6HR TESSIE Administration Methylprednisolone Sodium Succinate 62.5 mg 10/02/17 15:00 10/07/17 08:53 Solu-Medrol IVP 62.5 mg Q6HR TESSIE Administration Midazolam HCl 5 mg 10/01/17 12:48 10/01/17 13:17 Versed IVP 10/01/17 12:49 5 mg O ONE Administration Midazolam HCl 5 mg 10/01/17 13:14 10/01/17 13:21 Versed IVP 10/01/17 13:15 5 mg O ONE Administration Pantoprazole Sodium 40 mg 10/02/17 10:45 10/03/17 09:22 Protonix Iv IVP 40 mg DAILY TESSIE Administration Pharmacy Consult 1 each 10/02/17 15:36 Pharmacy Consult - Fall Risk [facility] 10/02/17 15:37 ONE TIME ONE Succinylcholine Chloride 100 mg 10/01/17 12:49 10/01/17 13:23 Quelicin IVP 10/01/17 12:50 100 mg O ONE Administration - Constitutional no acute distress - Routine HEENT Exam Eye: Absent: conjunctival icterus - Routine Neck Exam Present: supple, full ROM - Routine Respiratory Exam Present: decreased breath sounds, prolonged expiratory phase. Absent: wheezes - Routine Cardiovascular Exam Present: RRR - Urinary Catheter Management Urethral Cath placed during this visit: yes, but has since been removed by the nurse Urethral indwelling: Yes Insertion date: 10/01/17 Removal date: 10/06/17 Removal time: 15:00 Results - Laboratory Findings Laboratory: Laboratory Results - last 48 hr 10/09/17 10/09/17 10/10/17 16:32 20:43 05:05 WBC 11.3 H RBC 4.53 Hgb 12.2 Hct 41.5 MCV 91.6 MCH 26.9 MCHC 29.4 L RDW Std Deviation 49.0 Plt Count 174 MPV 11.8 Immature Gran % (Auto) 0.4 Neut % (Auto) 82.0 H Lymph % (Auto) 8.6 L [place] % (Auto) 8.4 Eos % (Auto) 0.6 Baso % (Auto) 0.0 Neut # (Auto) 9.2 H Lymph # (Auto) 1.0 [place] # (Auto) 1.0 H Eos # (Auto) 0.1 Baso # (Auto) 0.0 Abs Immat Gran (auto) 0.04 H Turbidity Sodium Potassium Chloride Carbon Dioxide Anion Gap BUN Creatinine GFR Calculation BUN/Creatinine Ratio Glucose Glucometer 149 127 Calculated Osmolality Calcium Icterus Index Specimen Hemolysis 10/10/17 10/10/17 10/10/17 05:05 06:42 10:45 WBC RBC Hgb Hct MCV MCH MCHC RDW Std Deviation Plt Count MPV Immature Gran % (Auto) Neut % (Auto) Lymph % (Auto) [place] % (Auto) Eos % (Auto) Baso % (Auto) Neut # (Auto) Lymph # (Auto) [place] # (Auto) Eos # (Auto) Baso # (Auto) Abs Immat Gran (auto) Turbidity < 20 Sodium 140 Potassium 3.7 Chloride 93 L D Carbon Dioxide 43 H* Anion Gap 4 L BUN 19.0 H Creatinine 0.4 L GFR Calculation 155 BUN/Creatinine Ratio 48 H Glucose 76 Glucometer 85 146 Calculated Osmolality 270 Calcium 8.2 L Icterus Index < 2 Specimen Hemolysis < 15 10/10/17 10/10/17 10/11/17 16:29 19:43 04:42 WBC 12.0 H RBC 4.60 Hgb 12.5 Hct 42.0 MCV 91.3 MCH 27.2 MCHC 29.8 L RDW Std Deviation 49.6 Plt Count 197 MPV 11.8 Immature Gran % (Auto) 0.5 Neut % (Auto) 83.2 H Lymph % (Auto) 7.6 L [place] % (Auto) 8.2 Eos % (Auto) 0.5 Baso % (Auto) 0.0 Neut # (Auto) 10.0 H Lymph # (Auto) 0.9 L [place] # (Auto) 1.0 H Eos # (Auto) 0.1 Baso # (Auto) 0.0 Abs Immat Gran (auto) 0.06 H Turbidity Sodium Potassium Chloride Carbon Dioxide Anion Gap BUN Creatinine GFR Calculation BUN/Creatinine Ratio Glucose Glucometer 279 182 Calculated Osmolality Calcium Icterus Index Specimen Hemolysis 10/11/17 10/11/17 10/11/17 04:42 06:12 10:57 WBC RBC Hgb Hct MCV MCH MCHC RDW Std Deviation Plt Count MPV Immature Gran % (Auto) Neut % (Auto) Lymph % (Auto) [place] % (Auto) Eos % (Auto) Baso % (Auto) Neut # (Auto) Lymph # (Auto) [place] # (Auto) Eos # (Auto) Baso # (Auto) Abs Immat Gran (auto) Turbidity < 20 Sodium 140 Potassium 3.8 Chloride 96 L Carbon Dioxide 41 H* Anion Gap 3 L BUN 20.0 H Creatinine 0.5 L GFR Calculation 120 BUN/Creatinine Ratio 40 H Glucose 79 Glucometer 86 97 Calculated Osmolality 271 Calcium 8.4 Icterus Index < 2 Specimen Hemolysis < 15 Assessment and Plan (1) Acute exacerbation of chronic obstructive airways disease Status: Acute Assessment and plan: slowly improving. now on high dose prednisone NIPPV at night and prn O2 to keep sat >90% Neb albuterol/iprat q4h, budesonide BID home with Trelegy once daily (samples given) Stenotrophomonas likely colonizer. Current Visit: Yes (2) Acute and chronic respiratory failure with hypercapnia Status: Acute Assessment and plan: home vent to mask at night and prn Current Visit: No - Assessment and Plan Acute on Chronic Hypoxic Respiratory Failure COPD exacerbation Right Pneumothorax Chronic Diastolic Heart Failure Plan: - Time Spent With Patient Total time spent is greater than 50% in coordination of care (as documented) at patient's floor/unit and/or counseling patient: less than 15 minutes
[2017-10-11] MEDS: SALINE FLUSH 10ml SYRINGE IVF PRN (23:50)
[2017-10-12] MEDS: ALBUTEROL/IPRATROPIUM 2.5mg-0.5mg/3ml NEB AEROSOL SCH ×4 (00:52→14:01)
[2017-10-12] MEDS: SALINE FLUSH 10ml SYRINGE IVF PRN (05:05)
[2017-10-12] MEDS: PANTOPRAZOLE 40 MG TABLET PO SCH (06:25)
[2017-10-12 08:00] VITALS: BP 119/65; PULSE 92; RESP 16; TEMP 97.8
[2017-10-12] MEDS: BUDESONIDE INH.SOLN 0.5mg/2ml NEB AEROSOL SCH (09:09)
[2017-10-12] MEDS: BUMETANIDE 0.5 MG TABLET PO SCH (09:12)
[2017-10-12] MEDS: PredniSONE 20 MG TABLET PO SCH (09:12)
[2017-10-12] MEDS: SALIVA SUBSTITUTE MOUTHWASH 237ml MM SCH ×2 (09:13→13:52)
[2017-10-12 09:26] VITALS: O2SAT 94
--- NOTE | 2017-10-12 10:01 | Progress Note ---
- Date 10/12/17 Subjective: F/U: Acute on chronic respiratory failure. Doing bout the same. Was able to wear BiPAP for 5 hours last night. Breathing with little change for better or worse. No cough/congestion. Appetite stable. No n/v. No ab pain. Feels up to going home, some anxiety about the transition but knows she will feel much more comfortable at home. Objective Vital signs: Temperature 97.8 F 10/12/17 07:59 Pulse Rate 92 10/12/17 08:00 Respiratory Rate 16 10/12/17 09:09 Blood Pressure 119/65 10/12/17 07:59 Pulse Oximetry 94 10/12/17 09:09 Height/Weight/BMI: Height 1.55 m Weight 51.7 kg Body Mass Index 20.2 - Constitutional Present: mild distress (Mild rest distress/work of breathing at rest), well nourished, well developed, average body habitus, cooperative. Absent: agitated , somnolent - Routine HEENT Exam Head: Present: normocephalic, atraumatic Eye: Present: EOMI, PERRL ENT: Present: mucous membranes moist - Routine Respiratory Exam Present: decreased breath sounds, respiratory distress (Mild resp distress at rest-patient working to breath, but in stable pattern from previous days. ), distant breath sounds, diminished air movement. Absent: rales, rhonchi, stridor , wheezes, crackles - Routine Cardiovascular Exam Present: RRR, no murmur - Routine Abdominal Exam Present: soft, non distended, non tender. Absent: guarding - Routine Extremities Exam Present: edema (Trace ), pulses intact. Absent: cyanosis, clubbing - Routine Musculoskeletal Exam Musculoskeletal: Present: no clubbing or cyanosis - Routine Skin Exam Present: dry, warm - Routine Neurological Exam Present: alert, oriented X3, CN II-XII intact, vision grossly intact, hearing grossly intact, normal speech. Absent: motor deficit, altered mental status - Routine Psychiatric Exam Present: normal affect, normal thought process, cooperative. Absent: agitated Results - Labs CBC & Chem 7: 10/12/17 05:05 10/12/17 05:05 Assessment and Plan (1) Acute and chronic respiratory failure with hypercapnia Current visit: No Status: Acute Assessment and Plan: Impression Acute on chronic respiratory failure with hypercapnia/hypoxia - home O2 at 5L and has home vent Acute exacerbation of COPD - Positive sputum culture with Stenotrophomonas maltophilia, likely causative agent Right pneumothorax (POA) - s/p chest tube placement -Chest tube removed 10/05 Severe COPD/Emphysema - end stage disease Severe respiratory distress - intubated 10/01, extubated 10/02 Pulmonary debility -severe Chronic diastolic heart failure Elevated LFTs (POA) - resolved History of tobacco use-quit 2004 Anxiety Gastroesophageal Reflux Disease Plan Will discharge to home with [facility] care. Continue with O2 at 5-6L for respiratory support. Patient to continue to use home vent at night (and if sleeping during the day). Will Continue Prednisone 40mg daily for 1 week, then could decrease to 20mg daily -- further taper as per Dr Walton. Likely will need chronic low dose (10mg) indefinitely. Will change albuterol neb treatments to DuoNeb QID - may use albuterol q2 hours as needed. Can stop levofloxacin - continue with chronic azithromycin. Lorazepam 1mg po q4 hours prn anxiety/air hunger. Biotene to help decrease dry mouth. Nasal saline to moisturize nasal passages. Decrease Bumex to 0.5mg daily to control edema - may use additional 0.5-1mg as needed. Continue potassium 10mEg BID with food. [facility] to follow patient for end stage COPD/Emysema with chronic hypoxic/hypercapnic respiratory failure. Can f/u with Dr Colunga in 1 week if able -- may be too taxing to go to clinic for visit. Can f/u with Dr Walton in 2 weeks if able -- may be too taxing to go to clinic for visit. Dr Walton can help manage Prednisone and respiratory medications. See orders for details. Case discussed with CM. Time spent with patient care and discharger greater than 30 minutes. DVT Prophylaxis: SCD's Resuscitation Status: Full Code - Physician Narrative Physician: Delano Pretty MD Narrative: Date: 10/12/17 Time: 0958 Hospital Course Summary Disclaimer: The visit summary below is not to be considered part of the above Progress Note. Hospital Course: 10/01/17 Admission Admit patient to CCU as a inpatient under the care of Dr Pretty. Currently on ventilator due to severity of respiratory distress. Propofol drip for sedation. Consultation placed with Dr. Walton for his pulmonary expertise and guidance. Will start patient on IV Rocephin and azithromycin for empiric antimicrobial pulmonary coverage. It is reported that patient does take Zithromax 3 times a week for pulmonary prophylaxis. Schedule DuoNeb neb and Pulmicort breathing treatments. Will obtain sputum culture via suctioning. Normal saline at 100 mL per hour for gentle hydration, monitor for evidence of fluid overload. Patient does chronically take Bumex 1 milligram twice a day and may require diuresing. Solu-Medrol 125 milligrams IV every etc. hours for pulmonary inflammation. Given history of COPD. Ativan as needed for anxiety. Patient does use Xanax at home. Daughter notes she may be using more and more given the severity of her respiratory effort. SCDs for DVT prophylaxis Recheck CBC and CMP tomorrow to follow blood counts, renal function, electrolytes and liver function. Full code is ordered as per Daughter at time of admission At time of discharge medical care will return to PCP, Dr Colunga 10/02/17 Chest tube placed by Dr Walton for decompression of pneumothorax. Able to be extubated and placed on BiPAP this afternoon. Will continue Rocephin and azithromycin for antimicrobial coverage. Decreased Solu-Medrol to 62.5mg IV q 6 hr; continue breathing treatments. Can discontinue IVF and advance diet to regular. Start potassium 20mEg BIDWM as potassium low (home dose 10 Jun). Will restart home Bumex tomorrow. Recheck CXR, BMP, and CBC along with magnesium in am. Continue CCU care and monitoring, possible transfer to floor tomorrow if continues to do well. 10/03/17 CXR showing stability - no infiltrate, pneumothorax resolved with chest tube. Respiratory distress decreasing - Maintaining saturation on O2. Did tolerate BiPAP overnight. Oral drive improving. Continue ceftriaxone and azithromycin for pulmonary coverage. Will continue Solu -Medrol and neb treatments. Add acapella to help decrease congestion. Blood sugars stable - continue monitoring and ISS due to steroid use. PT/OT eval due to underlying pulmonary debility and acute gen debility from this acute illness. Bladder retraining - likely can discontinue Schroeder in near future. Medically stable for transfer to medical floor to continue care. 10/04/17 Continue with Bi-pap and oxygen. Right chest tube remains intact - CXR today revels no pneumothorax. Continues small bilateral pleural effusions. Remains on scheduled Bumex BID. Continued scheduled Nebs. Appreciate Dr Walton expertise. Continue ceftriaxone and azithromycin for pulmonary coverage. PT/OT evaluation- She likely has significant pulmonary debility however does live at home alone. 10/05/17 Positive sputum culture with Stenotrophomonas maltophilia that is sensitive to levaquin, will switch to po Levaquin to complete antibiotic course. CXR today without PTX and no air leak, will pull R CT and check CXR in 4 hrs. 10/06/17 The chest tube has been removed and subsequent chest x-ray shows no recurrent pneumothorax. Bumex decreased to 0.5 mg twice a day. Will DC Schroeder. 10/07/17 Continues on methylprednisolone 62.5 mg IV Q6 hours-will try switching to a PO prednisone taper. 10/08/17 Will continue with levofloxacin and Prednisone 60mg dialy for respiratory treatment. Stress importance of BiPAP use to help breathing - strongly encouraged to use routinely all night. Needs to use during day if respiratory status worsens to help improve gas exchange and decrease work of breathing. As patient feels she is 'determined' to get better, did stress the critical need to work with therapy to help improve functional status. Would recommend starting with light activities - bed exercises, sitting on edge of bed. Increasing to transfers as able. Advised will be very hard/difficult work. Gains made will be slow. Wanting to return to home living - discussed how gains need to be made before that can be a reality. Will have set up Hospice informational meeting with [facility]. Patient at end stage of COPD/Emphysema and do feel hospice care will be needed in near future. Discussed case with patient, her home caregiver, and patient's daughter at length. 10/09/17 Will continue with levofloxacin and prednisone for respiratory treatment. WBC slightly increased (12.6). Continue to monitor. Patient reports using BiPAP last night but admits to frequently taking it off because it makes her "too dry". Dr. Walton recommended increasing humidity. Continue to stress importance of BiPAP use to help breathing - strongly encouraged to use routinely all night. Recommend using during day if respiratory status worsens to help improve gas exchange and decrease work of breathing. Discussed discharge plan options. Patient continues to insist on returning home. Patient reports she has a animal daycare provider who come M-R 7-3 and "could come more". She continues to decline needs for SNU. Stressed the importance of working with therapy to improve strength and functional abilities. Patient states her barriers with therapy continues to be easy fatigability, generalized weakness and significant increase in dyspnea with exertion. Discussed concerns about her returning home given her limitations with mobility and limited care at home. She states that her kitchen is on the opposite side of her house from her bedroom. Encourage participation with therapies. With CO2 showing elevation despite BiPAP, will give Diamox 500mg x1 and decreased Bumex to 0.5mg daily. CM to set up Hospice informational meeting with [facility] given end stage of COPD/emphysema. Do feel hospice care will be needed in near future. 10/10/17 Family and patient have arranged for around the clock care in her home and are discussing initiation of hospice. Waiting to meet with case management to discuss additional discharge plans. Will continue with levofloxacin and prednisone for respiratory treatment. WBC decreased to 11.3. Patient remains afebrile. Continue to monitor. CO2 slightly improved after dose of Diamox on 10/09/17. Bumex decreased to 0.5mg daily on 10/09/17. Monitor closely for signs of fluid overload. Continue to stress importance of BiPAP use to help breathing - strongly encouraged to use routinely all night. Continued easy fatigability with any exertion. Continue to stress the importance of working with therapy to improve strength and functional abilities. 10/11/17 Family and patient have arranged for around the clock care in her home and patient is open to hospice. Plan to discharge home tomorrow, 10/12/17. Will continue with levofloxacin and prednisone for respiratory treatment. WBC 12.0. Patient remains afebrile. Continue to monitor. Diamox 500mg x 1 dose given on 10/09 and 10/10. CO2 trending down. Bumex decreased to 0.5mg daily on 10/09/17. Continue Bumex 0.5mg daily with additional Bumex as needed for edema. Monitor closely for signs of fluid overload. Continue to stress importance of BiPAP use to help breathing - strongly encouraged to use routinely all night. Continued easy fatigability with any exertion. Continue to stress the importance of working with therapy to improve strength and functional abilities. 10/12/17 Discharge Will discharge to home with [facility] care. Continue with O2 at 5-6L for respiratory support. Patient to continue to use home vent at night (and if sleeping during the day). Will Continue Prednisone 40mg daily for 1 week, then could decrease to 20mg daily -- further taper as per Dr Walton. Likely will need chronic low dose (10mg) indefinitely. Will change albuterol neb treatments to DuoNeb QID - may use albuterol q2 hours as needed. Can stop levofloxacin - continue with chronic azithromycin. Lorazepam 1mg po q4 hours prn anxiety/air hunger. Biotene to help decrease dry mouth. Nasal saline to moisturize nasal passages. Decrease Bumex to 0.5mg daily to control edema - may use additional 0.5-1mg as needed. Continue potassium 10mEg BID with food. [facility] to follow patient for end stage COPD/Emysema with chronic hypoxic/hypercapnic respiratory failure. Can f/u with Dr Colunga in 1 week if able -- may be too taxing to go to clinic for visit. Can f/u with Dr Walton in 2 weeks if able -- may be too taxing to go to clinic for visit. Dr Walton can help manage Prednisone and respiratory medications. See orders for details.
[2017-10-12] MEDS ORDERED: NEOMYCIN/POLYMYXIN/BACITRACIN OINT PACKET TP ONE (13:23)
== END 2017-10-12 14:45 | disposition hospice, home (50) | DRG 208 ==
LOC: ED 12:20 → SUATTDRO 13:33 → CCU 13:33 → MED 10-03 13:30
PROVIDERS: ADMIT Hospitalist; ATTEND Hospitalist